=== PATIENT | female | born 1945 | race Caucasian/White ===

== ENCOUNTER → 2017-06-17 13:47 | Outpatient (CLI) | payer MEDICARE, OTHER, SELFPAY ==
--- NOTE | 2017-06-17 13:50 | HPBI_ITS ---
MAMMOGRAPHY - BILATERAL SCREENING REASON FOR EXAM: Female, 71 years old. Routine annual screening examination. PERTINENT HISTORY: Non-contributory. TECHNIQUE: Digital bilateral breast ana (3D mammographic acquisition) in the CC and MLO projections. 2-D mediolateral oblique (MLO) and craniocaudad (CC) views of both breasts were obtained. CAD: Full Field Digital Mammography with Computer Added Detection was performed. COMPARISON: Comparison is made with prior abdomen examination dated November 18, 2015. FINDINGS: Breast Composition: There are scattered areas of fibroglandular density. There are no dominant masses or suspicious calcifications. Stable mild secretory calcifications in the inferior retroareolar region of the left breast. No other significant abnormalities are identified. There has been no significant change since the prior study. HPBI/SCREENING MAMM (CAD), BILAT IMPRESSION: Stable bilateral screening mammogram. Yearly follow-up mammogram recommended. (A) ASSESSMENT CATEGORY: BIRADS Category 2: Benign. A letter regarding these results will be sent to the patient by the facility within 30 days. Approximately 10% of breast cancers are not detected by mammography. A normal mammogram should not delay biopsy of a clinically suspicious abnormality. [id number] Electronically Signed: Morgan Nice MD at 14:51 EST Tel [phone], Service support ,
== END ==
PROVIDERS: Visit Provider Nurse Practitioner Women's Health
DX: Z12.31 Encounter for screening mammogram for malignant neoplasm of breast (principal)
CPT/HCPCS: 77063; 77067

== ENCOUNTER → 2017-09-15 14:39 | Outpatient (CLI) | payer MEDICARE, OTHER, SELFPAY ==
--- NOTE | 2017-09-15 15:05 | RAD_ITS ---
STUDY: X-RAY - ABDOMEN/PELVIS REASON FOR EXAM: Female, 71 years old. Constipation. Nausea. TECHNIQUE: AP supine and upright views of the abdomen and pelvis. COMPARISON: None. FINDINGS: Normal visualized lung bases. There is a moderate amount of colonic fecal material. There is no demonstrated free abdominal air. The visualized liver, spleen and kidneys are grossly normal in size and morphology. There are calcified phleboliths in the pelvis. There are diffuse degenerative changes of the visualized lumbar spine. RAD/Abd Inc Decub and/or Erect IMPRESSION: Moderate amount of fecal material is seen in the colon. Electronically Signed: Morgan Nice MD at 15:40 EDT Tel [phone], Service support ,
[2017-09-15 16:52] LABS: Absolute Lymphocyte Count 2.19 X10^3/ul (0.83-4.51); Absolute Neutrophil Count 4.1 X10^3/uL (2.0-7.7); Basophil# 0.02 X10^3/uL; Basophil% 0.3 % (0-1); Eosinophil# 0.07 X10^3/uL; Hematocrit 43.7 % (37-47); Hemoglobin 13.8 g/dl (12.0-15.0); Lymphocyte # 2.19 X10^3/ul (4.0); Mean Corp Hgb Conc 31.6 g/gl (32-36); Mean Corpuscular Volume 101.4 fL (81-99); Mean Platelet Vol. 10.7 fl (6.2-12.0); Monocyte# 0.51 X10^3/uL; Monocyte% 7.4 % (0-10); Neutrophil # 4.05 X10^3/uL (2.7-7.7); Neutrophil % 59.2 % (47-70); Platelet Count 323 K/mm3 (150-450); RBC Distribution Width CV 12.8 % (11.6-14.6); RBC Distribution Width SD 47.8 fl (35.1-43.9); Red Blood Count 4.31 M/mm3 (4.2-5.4); White Blood Count 6.9 K/mm3 (4.4-11.0)
[2017-09-15 16:54] LABS: POSITIVE COUNT NO; POSITIVE DIFFERENTIAL NO; POSITIVE MORPHOLOGY NO
[2017-09-15 16:56] LABS: Prothrombin Time (Protime)PT. 13.3 SECONDS (11.7-14.9)
[2017-09-15 16:57] LABS: Partial Thromboplast Time 30.4 Seconds (24.1-36.2)
[2017-09-15 17:00] LABS: D-Dimer Quantitative (DVT/PE) < 0.27 FEU/ug/m (0.27-0.49)
[2017-09-15 17:08] LABS: AST(SGOT) 22 U/L (15-37); Alanine Aminotransfer ALT/SGPT 28 U/L (13-56); Alkaline Phosphatase 54 U/L (45-117); Anion Gap 10 (5-15); BUN 13 mg/dL (7-18); BUN/Creat Ratio 12.7 RATIO (10-20); Chloride 106 mmol/L (98-107); Creatinine, Serum 1.02 mg/dL (0.55-1.02); EST Glomerular Filtration Rate 57 mL/min (>60); Est Glom Filt Rate - Afr Amer 69 mL/min (>60); Globulin 3.9 g/dL (2.2-4.2); Glucose 92 mg/dL (74-106); Potassium 4.2 mmol/L (3.5-5.1); Protein, Total 7.9 g/dL (6.4-8.2); Sodium Level 142 mmol/L (136-145)
== END ==
LOC: POLAB3 14:40 → RAD 14:56
PROVIDERS: Family Provider Family Medicine Geriatric Medicine; PCP Family Medicine Geriatric Medicine; Visit Provider Family Medicine Geriatric Medicine
DX: K59.00 Constipation, unspecified (principal); D68.8 Other specified coagulation defects; R06.02 Shortness of breath; R60.9 Edema, unspecified
CPT/HCPCS: 36415; 74019; 80053; 85025; 85379; 85610; 85730

== ENCOUNTER → 2017-10-19 08:40 | Outpatient (CLI) | payer MEDICARE, OTHER, SELFPAY ==
[2017-10-19 10:47] LABS: Absolute Lymphocyte Count 1.62 X10^3/ul (0.83-4.51); Absolute Neutrophil Count 3.7 X10^3/uL (2.0-7.7); Basophil# 0.02 X10^3/uL; Basophil% 0.3 % (0-1); Eosinophil# 0.04 X10^3/uL; Eosinophils% 0.7 % (0-5); Hematocrit 44.2 % (37-47); Hemoglobin 14.3 g/dl (12.0-15.0); Lymphocyte # 1.62 X10^3/ul (4.0); Lymphocyte % 27.7 % (19-41); Mean Corp Hgb Conc 32.4 g/gl (32-36); Mean Corpuscular Hgb 32.7 pg (27.0-32.0); Mean Corpuscular Volume 101.1 fL (81-99); Mean Platelet Vol. 10.5 fl (6.2-12.0); Monocyte# 0.51 X10^3/uL; Monocyte% 8.7 % (0-10); Neutrophil # 3.66 X10^3/uL (2.7-7.7); Neutrophil % 62.6 % (47-70); Platelet Count 364 K/mm3 (150-450); RBC Distribution Width CV 12.6 % (11.6-14.6); RBC Distribution Width SD 46.7 fl (35.1-43.9); Red Blood Count 4.37 M/mm3 (4.2-5.4); White Blood Count 5.9 K/mm3 (4.4-11.0)
[2017-10-19 10:48] LABS: POSITIVE COUNT NO; POSITIVE DIFFERENTIAL NO; POSITIVE MORPHOLOGY NO
[2017-10-19 11:06] LABS: Vitamin D,25 Hydroxy 21.3 ng/mL (29.95-100.01)
[2017-10-19 11:07] LABS: ALB/GLOB Ratio 0.9 RATIO (0.9-2.4); AST(SGOT) 19 U/L (15-37); Alanine Aminotransfer ALT/SGPT 33 U/L (13-56); Albumin, Serum 3.9 g/dL (3.2-5.0); Alkaline Phosphatase 51 U/L (45-117); Anion Gap 8 (5-15); BUN 13 mg/dL (7-18); BUN/Creat Ratio 12.6 RATIO (10-20); Calcium,Total 9.6 mg/dL (8.5-10.1); Chloride 102 mmol/L (98-107); Creatinine, Serum 1.03 mg/dL (0.55-1.02); EST Glomerular Filtration Rate 56 mL/min (>60); Est Glom Filt Rate - Afr Amer 68 mL/min (>60); Globulin 4.2 g/dL (2.2-4.2); Glucose 89 mg/dL (74-106); Potassium 4.2 mmol/L (3.5-5.1); Protein, Total 8.1 g/dL (6.4-8.2); Sodium Level 138 mmol/L (136-145); Thyroid Stim Hormone (TSH) 3.03 uIU/mL (0.358-3.74)
[2017-10-20 11:05] LABS: Hep C Antibodies 0.1 s/co ratio (0.0-0.9)
== END ==
PROVIDERS: Family Provider Family Medicine Geriatric Medicine; PCP Family Medicine Geriatric Medicine; Visit Provider Family Medicine Geriatric Medicine
DX: E55.9 Vitamin D deficiency, unspecified (principal); R53.83 Other fatigue; Z13.89 Encounter for screening for other disorder
CPT/HCPCS: 36415; 80053; 82306; 84443; 85025; 86803

== ENCOUNTER → 2018-04-20 10:13 | Outpatient (CLI) | payer MEDICARE, OTHER, SELFPAY ==
[2017-06-20 10:06] VITALS: BMI 28.0
[2018-04-20 12:43] LABS: Absolute Lymphocyte Count 1.73 X10^3/ul (0.83-4.51); Absolute Neutrophil Count 5.1 X10^3/uL (2.0-7.7); Basophil# 0.02 X10^3/uL; Basophil% 0.3 % (0-1); Eosinophil# 0.08 X10^3/uL; Eosinophils% 1.1 % (0-5); Hematocrit 43.9 % (37-47); Hemoglobin 13.8 g/dl (12.0-15.0); Lymphocyte # 1.73 X10^3/ul (4.0); Lymphocyte % 22.9 % (19-41); Mean Corp Hgb Conc 31.4 g/gl (32-36); Mean Corpuscular Hgb 32.1 pg (27.0-32.0); Mean Corpuscular Volume 102.1 fL (81-99); Mean Platelet Vol. 10.5 fl (6.2-12.0); Monocyte# 0.57 X10^3/uL; Monocyte% 7.5 % (0-10); Neutrophil # 5.14 X10^3/uL (2.7-7.7); Neutrophil % 68.1 % (47-70); Platelet Count 302 K/mm3 (150-450); RBC Distribution Width CV 13.1 % (11.6-14.6); RBC Distribution Width SD 48.2 fl (35.1-43.9); White Blood Count 7.6 K/mm3 (4.4-11.0)
[2018-04-20 12:49] LABS: POSITIVE COUNT NO; POSITIVE DIFFERENTIAL NO; POSITIVE MORPHOLOGY NO
[2018-04-20 12:54] LABS: Vitamin D,25 Hydroxy 25.2 ng/mL (29.95-100.01)
[2018-04-20 13:02] LABS: AST(SGOT) 25 U/L (15-37); Alanine Aminotransfer ALT/SGPT 32 U/L (13-56); Albumin, Serum 3.7 g/dL (3.2-5.0); Alkaline Phosphatase 54 U/L (45-117); Anion Gap 9 (5-15); BUN 16 mg/dL (7-18); BUN/Creat Ratio 17.3 RATIO (10-20); Calcium,Total 8.9 mg/dL (8.5-10.1); Chloride 102 mmol/L (98-107); Creatinine, Serum 0.92 mg/dL (0.55-1.02); EST Glomerular Filtration Rate 64 mL/min (>60); Est Glom Filt Rate - Afr Amer 77 mL/min (>60); Globulin 3.8 g/dL (2.2-4.2); Glucose 93 mg/dL (74-106); Potassium 4.2 mmol/L (3.5-5.1); Protein, Total 7.5 g/dL (6.4-8.2); Sodium Level 140 mmol/L (136-145); Thyroid Stim Hormone (TSH) 2.39 uIU/mL (0.358-3.74)
== END ==
PROVIDERS: Family Provider Family Medicine Geriatric Medicine; PCP Family Medicine Geriatric Medicine; Visit Provider Family Medicine Geriatric Medicine
DX: E55.9 Vitamin D deficiency, unspecified (principal); R53.83 Other fatigue
CPT/HCPCS: 36415; 80053; 82306; 84443; 85025

== ENCOUNTER → 2018-09-19 | Outpatient (CLI) | payer MEDICARE, OTHER, SELFPAY ==
[2018-09-17 08:55] VITALS: BMI 25.0
[2018-09-22 14:06] LABS: Lyme IgG P18 Ab Absent (.); Lyme IgG P23 Ab Absent (.); Lyme IgG P28 Ab Absent (.); Lyme IgG P30 Ab Absent (.); Lyme IgG P39 Ab Absent (.); Lyme IgG P41 Ab Present (.); Lyme IgG P45 Ab Absent (.); Lyme IgG P58 Ab Absent (.); Lyme IgG P66 Ab Absent (.); Lyme IgG P93 Ab Absent (.); Lyme IgM P23 Ab Absent (.); Lyme IgM P39 Ab Absent (.); Lyme IgM P41 Ab Absent (.)
[2018-09-22 16:07] LABS: Lyme IgG WB Interpretation Negative (.); Lyme IgM WB Interpretation Negative (.)
== END | disposition home or self-care (01) ==
LOC: POLAB3 15:31
PROVIDERS: Family Provider Family Medicine Geriatric Medicine; PCP Family Medicine Geriatric Medicine; Visit Provider Family Medicine Geriatric Medicine
DX: A69.20 Lyme disease, unspecified (principal)
CPT/HCPCS: 86617

== ENCOUNTER → 2018-09-27 | Outpatient (CLI) | payer MEDICARE, OTHER, SELFPAY ==
[2018-08-15 13:25] VITALS: BMI 28.0
[2018-09-17 08:55] VITALS: BMI 25.0
--- NOTE | 2018-09-27 09:34 | BI_ITS ---
MAMMOGRAPHY - BILATERAL SCREENING REASON FOR EXAM: Female, 72 years old. Routine annual screening examination. PERTINENT HISTORY: Non-contributory. TECHNIQUE: Digital bilateral breast kathrin (3D mammographic acquisition) in the CC and MLO projections. 2-D mediolateral oblique (MLO) and craniocaudad (CC) views of both breasts were obtained. CAD: Full Field Digital Mammography with Computer Added Detection was performed. COMPARISON: Comparison is made with prior study dated June 17, 2017. FINDINGS: Breast Composition: There are scattered areas of fibroglandular density. There are no dominant masses or suspicious calcifications. Stable secretory calcifications in the left breast. No other significant abnormalities are identified. There has been no significant change since the prior study. BI/SCREEN MAMM (CAD) W/KATHRIN BILAT IMPRESSION: Stable bilateral screening mammogram. Yearly follow-up mammogram recommended. (A) ASSESSMENT CATEGORY: BIRADS Category 2: Benign. A letter regarding these results will be sent to the patient by the facility within 30 days. Approximately 10% of breast cancers are not detected by mammography. A normal mammogram should not delay biopsy of a clinically suspicious abnormality. [id number] Electronically Signed: Morgan Nice, at 12:39 EDT , Service support ,
--- NOTE | 2018-09-27 09:36 | BD_ITS ---
STUDY: DUAL ENERGY X-RAY ABSORPTIOMETRY / DXA REASON FOR EXAM: Female, 72 years old. The patient is postmenopausal. Loss of height. TECHNIQUE: Bone Mineral Density (BMD) measurements of lumbar spine and bilateral hips were obtained. COMPARISON: None. FINDINGS: Lumbar Spine (L1-L4): g/cm2 (1.318) / T-score (1.2) / Z-score (2.9) Findings are suggestive of normal bone density with a low fracture risk. Left Femur Total: g/cm2 (0.933) / T-score (-0.6) / Z-score (1.0) Left Femoral Neck: g/cm2 (0.865) / T-score (-1.2) / Z-score (0.5) Right Femur Total: g/cm2 (0.901) / T-score (-0.8) / Z-score (0.7) Right Femoral Neck: g/cm2 (0.811) / T-score (-1.6) / Z-score (0.1) BD/Dexa Bone Density Study IMPRESSION: The patient is considered osteopenic as outlined below according to World Joey Organization (WHO) criteria with a moderate fracture risk. Reference Information: The T-score is the number of standard deviations above or below the standard which is normal for young adults at their peak bone mineral density. The World Health Organization (WHO) interprets the T-scores as follows: Above -1 Normal bone density Between -1 and -2.5 Osteopenia Equal to / or below -2.5 Osteoporosis As a practical clinical guideline, osteopenia may be graded as follows: Mild -1 through -1.5 Moderate -1.6 through -2.0 Severe -2.1 through -2.4 The Z-score is the number of standard deviations above or below age-matched controls. A Z-score of less than -1.5 would be considered abnormal. References: 1. NIH Osteoporosis and Related Bone Diseases http://www.osteo.org 2. International Society for Clinical Densitometry http://www.iscd.org 3. National Osteoporosis Foundation http://www.nof.org Electronically Signed: Morgan Nice, at 8:44 EDT , Service support ,
== END | disposition home or self-care (01) ==
LOC: OPBD 09:31
PROVIDERS: Family Provider Family Medicine Geriatric Medicine; PCP Family Medicine Geriatric Medicine; Referring Provider Nurse Practitioner Women's Health; Visit Provider Nurse Practitioner Women's Health
DX: Z12.31 Encounter for screening mammogram for malignant neoplasm of breast (principal); Z78.0 Asymptomatic menopausal state
CPT/HCPCS: 77063; 77067; 77080

== ENCOUNTER → 2018-10-19 | Outpatient (CLI) | payer MEDICARE, OTHER, SELFPAY ==
[2018-09-17 08:55] VITALS: BMI 25.0
--- NOTE | 2018-10-19 09:35 | CT_ITS ---
STUDY: CT ABDOMEN AND PELVIS WITH CONTRAST REASON FOR EXAM: Female, 72 years old. MA RADIATION DOSAGE (If Supplied By Facility): CTDIvol = ( 16.27 ) mGy, DLP = ( 829.49 ) mGycm TECHNIQUE: Transaxial images were obtained from the dome of the diaphragm to the symphysis pubis without oral contrast. 100ml IV/Oral Isovue 300 was administered. Sagittal and coronal images were reconstructed. Individualized dose optimization techniques were used for this CT. COMPARISON: None. FINDINGS: The visualized lung bases are unremarkable. The visualized portions of the heart are within normal limits. Normal liver. Normal gallbladder and extrahepatic biliary system. Normal spleen. Normal pancreas. Normal bilateral adrenal glands. Normal right kidney. Normal left kidney. No hydronephrosis or stone formation Normal visualized stomach. Normal small intestine. Normal colon except for a few diverticula seen in the sigmoid colon. The appendix is visualized and appears normal. Normal abdominal aorta. Normal inferior vena cava. Normal retroperitoneum. Normal urinary bladder. The uterus is relatively small. Normal abdominal wall. Moderate hypertrophic changes in the lumbar spine with narrowing of L4-5 disc space. L5 is sacralized. CT/Abdomen/Pelvis WITH Contrast IMPRESSION: Normal enhanced CT of the abdomen and pelvis except for a few diverticula in position without diverticulitis. Electronically Signed: Brianne Stinson, at 12:24 EDT Tel , Service support ,
[2018-10-19 11:18] LABS: AST(SGOT) 18 U/L (15-37); Alanine Aminotransfer ALT/SGPT 29 U/L (13-56); Albumin, Serum 3.8 g/dL (3.2-5.0); Alkaline Phosphatase 50 U/L (45-117); Anion Gap 6 (5-15); BUN 12 mg/dL (7-18); BUN/Creat Ratio 11.8 RATIO (10-20); Calcium,Total 9.1 mg/dL (8.5-10.1); Chloride 106 mmol/L (98-107); Creatinine, Serum 1.02 mg/dL (0.55-1.02); EST Glomerular Filtration Rate 57 mL/min (>60); Est Glom Filt Rate - Afr Amer 69 mL/min (>60); Globulin 3.8 g/dL (2.2-4.2); Glucose 98 mg/dL (74-106); Potassium 3.9 mmol/L (3.5-5.1); Protein, Total 7.6 g/dL (6.4-8.2); Sodium Level 139 mmol/L (136-145)
[2018-10-19 11:21] LABS: Absolute Lymphocyte Count 1.78 X10^3/ul (0.83-4.51); Basophil# 0.03 X10^3/uL; Basophil% 0.4 % (0-1); Eosinophils% 1.3 % (0-5); Hematocrit 43.4 % (37-47); Hemoglobin 14.2 g/dl (12.0-15.0); Lymphocyte # 1.78 X10^3/ul (4.0); Lymphocyte % 23.9 % (19-41); Mean Corp Hgb Conc 32.7 g/gl (32-36); Mean Corpuscular Hgb 32.6 pg (27.0-32.0); Mean Corpuscular Volume 99.5 fL (81-99); Mean Platelet Vol. 10.1 fl (6.2-12.0); Monocyte# 0.54 X10^3/uL; Monocyte% 7.2 % (0-10); Neutrophil # 4.99 X10^3/uL (2.7-7.7); Neutrophil % 67.1 % (47-70); Platelet Count 314 K/mm3 (150-450); RBC Distribution Width CV 13.3 % (11.6-14.6); RBC Distribution Width SD 48.4 fl (35.1-43.9); Red Blood Count 4.36 M/mm3 (4.2-5.4); White Blood Count 7.5 K/mm3 (4.4-11.0)
[2018-10-19 11:22] LABS: POSITIVE COUNT NO; POSITIVE DIFFERENTIAL NO; POSITIVE MORPHOLOGY NO
== END | disposition home or self-care (01) ==
PROVIDERS: Family Provider Family Medicine Geriatric Medicine; PCP Family Medicine Geriatric Medicine; Referring Provider Family Medicine Geriatric Medicine; Visit Provider Family Medicine Geriatric Medicine
DX: R10.9 Unspecified abdominal pain (principal); R19.7 Diarrhea, unspecified
CPT/HCPCS: 36415; 74177; 80053; 85025; Q9967

== ENCOUNTER → 2018-10-23 | Outpatient (CLI) | payer MEDICARE, OTHER, SELFPAY ==
[2018-09-17 08:55] VITALS: BMI 25.0
[2018-10-23 10:25] LABS: Absolute Lymphocyte Count 1.44 X10^3/ul (0.83-4.51); Absolute Neutrophil Count 3.6 X10^3/uL (2.0-7.7); Basophil# 0.01 X10^3/uL; Basophil% 0.2 % (0-1); Eosinophil# 0.09 X10^3/uL; Eosinophils% 1.6 % (0-5); Hematocrit 42.5 % (37-47); Hemoglobin 13.9 g/dl (12.0-15.0); Lymphocyte # 1.44 X10^3/ul (4.0); Lymphocyte % 26.1 % (19-41); Mean Corp Hgb Conc 32.7 g/gl (32-36); Mean Corpuscular Volume 97.7 fL (81-99); Mean Platelet Vol. 10.1 fl (6.2-12.0); Monocyte# 0.41 X10^3/uL; Monocyte% 7.4 % (0-10); Neutrophil # 3.55 X10^3/uL (2.7-7.7); Neutrophil % 64.5 % (47-70); Platelet Count 307 K/mm3 (150-450); RBC Distribution Width CV 13.3 % (11.6-14.6); RBC Distribution Width SD 46.7 fl (35.1-43.9); Red Blood Count 4.35 M/mm3 (4.2-5.4); White Blood Count 5.5 K/mm3 (4.4-11.0)
[2018-10-23 10:26] LABS: POSITIVE COUNT NO; POSITIVE DIFFERENTIAL NO; POSITIVE MORPHOLOGY NO
[2018-10-23 10:50] LABS: Vitamin D,25 Hydroxy 28.4 ng/mL (29.95-100.01)
[2018-10-23 10:52] LABS: AST(SGOT) 16 U/L (15-37); Alanine Aminotransfer ALT/SGPT 24 U/L (13-56); Albumin, Serum 3.7 g/dL (3.2-5.0); Alkaline Phosphatase 50 U/L (45-117); Anion Gap 5 (5-15); BUN 11 mg/dL (7-18); BUN/Creat Ratio 11.1 RATIO (10-20); Calcium,Total 9.6 mg/dL (8.5-10.1); Chloride 107 mmol/L (98-107); Creatinine, Serum 0.99 mg/dL (0.55-1.02); EST Glomerular Filtration Rate 58 mL/min (>60); Est Glom Filt Rate - Afr Amer 71 mL/min (>60); Globulin 3.7 g/dL (2.2-4.2); Glucose 82 mg/dL (74-106); Potassium 3.7 mmol/L (3.5-5.1); Protein, Total 7.4 g/dL (6.4-8.2); Sodium Level 140 mmol/L (136-145); Thyroid Stim Hormone (TSH) 5.43 uIU/mL (0.358-3.74)
== END | disposition home or self-care (01) ==
LOC: POLAB3 08:53
PROVIDERS: Family Provider Family Medicine Geriatric Medicine; PCP Family Medicine Geriatric Medicine; Visit Provider Family Medicine Geriatric Medicine
DX: R10.9 Unspecified abdominal pain (principal); R53.83 Other fatigue; E55.9 Vitamin D deficiency, unspecified; R19.7 Diarrhea, unspecified
CPT/HCPCS: 36415; 80053; 82274; 82306; 83630; 84443; 85025; 87177; 87209; 87493; 87506

== ENCOUNTER → 2018-11-03 | Outpatient (CLI) | payer MEDICARE, OTHER, SELFPAY ==
[2018-09-17 08:55] VITALS: BMI 25.0
--- NOTE | 2018-11-03 11:05 | RAD_ITS ---
HISTORY: Lower abdominal pain. Diarrhea. Comparison study is a CT scan of the abdomen and pelvis from October 04, 2018. 4 images of the abdomen and pelvis. Findings: A few air-fluid levels are present, possibly within small bowel and colon. Lung bases are clear. Heart is not enlarged. Scoliosis and degenerative disc disease are mild. No pneumatosis. No free air. RAD/Abd Inc Decub and/or Erect IMPRESSION: Nonspecific bowel gas pattern. There is an gaseously distended loops of bowel with some air-fluid levels. This could be similar to the previous study. This could be indicative of an ileus, enteritis, an early small bowel obstruction, or normal. at 0440 Reported and signed by: Thom Marcum MD Electronically Signed: Thom Marcum MD at 4:39 EDT Tel , Service support ,
[2018-11-03 13:11] LABS: Absolute Lymphocyte Count 1.58 X10^3/ul (0.83-4.51); Absolute Neutrophil Count 3.2 X10^3/uL (2.0-7.7); Basophil# 0.02 X10^3/uL; Basophil% 0.4 % (0-1); Eosinophil# 0.06 X10^3/uL; Eosinophils% 1.1 % (0-5); Hematocrit 44.4 % (37-47); Hemoglobin 14.2 g/dl (12.0-15.0); Lymphocyte # 1.58 X10^3/ul (4.0); Lymphocyte % 29.4 % (19-41); Mean Corpuscular Hgb 31.6 pg (27.0-32.0); Mean Corpuscular Volume 98.9 fL (81-99); Mean Platelet Vol. 10.3 fl (6.2-12.0); Monocyte# 0.46 X10^3/uL; Monocyte% 8.6 % (0-10); Neutrophil # 3.24 X10^3/uL (2.7-7.7); Neutrophil % 60.3 % (47-70); Platelet Count 346 K/mm3 (150-450); RBC Distribution Width CV 13.3 % (11.6-14.6); RBC Distribution Width SD 47.5 fl (35.1-43.9); Red Blood Count 4.49 M/mm3 (4.2-5.4); White Blood Count 5.4 K/mm3 (4.4-11.0)
[2018-11-03 13:12] LABS: POSITIVE COUNT NO; POSITIVE DIFFERENTIAL NO; POSITIVE MORPHOLOGY NO
[2018-11-03 13:36] LABS: AST(SGOT) 21 U/L (15-37); Alanine Aminotransfer ALT/SGPT 31 U/L (13-56); Albumin, Serum 3.8 g/dL (3.2-5.0); Alkaline Phosphatase 56 U/L (45-117); Anion Gap 7 (5-15); BUN 13 mg/dL (7-18); BUN/Creat Ratio 14.1 RATIO (10-20); Chloride 107 mmol/L (98-107); Creatinine, Serum 0.92 mg/dL (0.55-1.02); EST Glomerular Filtration Rate 64 mL/min (>60); Est Glom Filt Rate - Afr Amer 77 mL/min (>60); Globulin 3.8 g/dL (2.2-4.2); Glucose 91 mg/dL (74-106); Protein, Total 7.6 g/dL (6.4-8.2); Sodium Level 142 mmol/L (136-145)
== END | disposition home or self-care (01) ==
PROVIDERS: Family Provider Family Medicine Geriatric Medicine; PCP Family Medicine Geriatric Medicine; Referring Provider Family Medicine Geriatric Medicine; Visit Provider Family Medicine Geriatric Medicine
DX: K59.00 Constipation, unspecified (principal); R53.83 Other fatigue
CPT/HCPCS: 36415; 74019; 80053; 84443; 85025

== ENCOUNTER → 2018-11-04 | Outpatient (CLI) | payer MEDICARE, OTHER, SELFPAY ==
[2018-09-17 08:55] VITALS: BMI 25.0
== END | disposition home or self-care (01) ==
LOC: LABSPEC 07:16
PROVIDERS: Family Provider Family Medicine Geriatric Medicine; PCP Family Medicine Geriatric Medicine; Referring Provider Family Medicine Geriatric Medicine; Visit Provider Family Medicine Geriatric Medicine
DX: R19.7 Diarrhea, unspecified (principal)
CPT/HCPCS: 82274; 83630; 87177; 87209; 87493; 87506

== ENCOUNTER → 2018-12-04 | Outpatient (CLI) | payer MEDICARE, OTHER, SELFPAY ==
[2018-09-17 08:55] VITALS: BMI 25.0
[2018-12-04 17:50] LABS: T3 Uptake 31 % (30-39); T4 Free Direct 0.85 ng/dL (0.76-1.46); Thyroid Stim Hormone (TSH) 3.72 uIU/mL (0.358-3.74)
== END | disposition home or self-care (01) ==
LOC: LAB.FUTURE 13:16
PROVIDERS: Family Provider Family Medicine Geriatric Medicine; PCP Family Medicine Geriatric Medicine; Visit Provider Family Medicine Geriatric Medicine
DX: E03.9 Hypothyroidism, unspecified (principal)
CPT/HCPCS: 36415; 84439; 84443; 84479

== ENCOUNTER → 2019-04-09 11:39 | Outpatient (CLI) | payer MEDICARE, OTHER, SELFPAY ==
[2018-09-17 08:55] VITALS: BMI 25.0
[2019-04-09 12:16] LABS: Absolute Lymphocyte Count 1.66 X10^3/uL (0.83-4.51); Absolute Neutrophil Count 3.3 X10^3/uL (2.0-7.7); Basophil# 0.02 X10^3/uL; Basophil% 0.4 % (0-1); Eosinophil# 0.04 X10^3/uL; Eosinophils% 0.7 % (0-5); Hematocrit 44.6 % (37-47); Hemoglobin 14.4 g/dL (12.0-15.0); Lymphocyte # 1.66 X10^3/ul (4.0); Lymphocyte % 30.7 % (19-41); Mean Corp Hgb Conc 32.3 g/dL (32-36); Mean Corpuscular Hgb 32.4 pg (27.0-32.0); Mean Corpuscular Volume 100.2 fL (81-99); Mean Platelet Vol. 10.3 fl (6.2-12.0); Monocyte# 0.36 X10^3/uL; Monocyte% 6.7 % (0-10); NRBC Flagged by Analyzer 0 % (0-5); Neutrophil # 3.31 X10^3/uL (2.7-7.7); Neutrophil % 61.1 % (47-70); Platelet Count 298 K/mm3 (150-450); RBC Distribution Width CV 12.8 % (11.6-14.6); RBC Distribution Width SD 47.7 fl (35.1-43.9); Red Blood Count 4.45 M/mm3 (4.2-5.4); White Blood Count 5.4 K/mm3 (4.4-11.0)
[2019-04-09 12:30] LABS: ALB/GLOB Ratio 1.1 RATIO (0.9-2.4); AST(SGOT) 22 U/L (15-37); Alanine Aminotransfer ALT/SGPT 32 U/L (13-56); Alkaline Phosphatase 52 U/L (45-117); Anion Gap 2 (5-15); BUN 11 mg/dL (7-18); BUN/Creat Ratio 10.5 RATIO (10-20); Calcium,Total 8.8 mg/dL (8.5-10.1); Chloride 109 mmol/L (98-107); Creatinine, Serum 1.05 mg/dL (0.55-1.02); EST Glomerular Filtration Rate 55 mL/min (>60); Est Glom Filt Rate - Afr Amer 66 mL/min (>60); Globulin 3.7 g/dL (2.2-4.2); Glucose 82 mg/dL (74-106); Potassium 4.1 mmol/L (3.5-5.1); Protein, Total 7.7 g/dL (6.4-8.2); Sodium Level 140 mmol/L (136-145); Thyroid Stim Hormone (TSH) 2.67 uIU/mL (0.358-3.74)
== END ==
PROVIDERS: Family Provider Family Medicine Geriatric Medicine; PCP Family Medicine Geriatric Medicine; Visit Provider Family Medicine Geriatric Medicine
DX: R10.9 Unspecified abdominal pain (principal); N39.0 Urinary tract infection, site not specified; I10 Essential (primary) hypertension; R19.7 Diarrhea, unspecified
CPT/HCPCS: 36415; 74177; 80053; 82274; 83630; 84443; 85025; 87086; 87088; 87177; 87209; 87493; 87506; Q9967; A4216

== ENCOUNTER → 2019-04-09 13:07 | Outpatient (CLI) | payer MEDICARE, OTHER, SELFPAY ==
[2018-09-17 08:55] VITALS: BMI 25.0
== END ==
PROVIDERS: Family Provider Family Medicine Geriatric Medicine; PCP Family Medicine Geriatric Medicine; Referring Provider Family Medicine Geriatric Medicine; Visit Provider Family Medicine Geriatric Medicine
DX: R19.7 Diarrhea, unspecified (principal)
CPT/HCPCS: 82274; 83630; 87177; 87209; 87493; 87506

== ENCOUNTER → 2019-04-09 14:01 | Outpatient (CLI) | payer MEDICARE, OTHER, SELFPAY ==
[2018-09-17 08:55] VITALS: BMI 25.0
--- NOTE | 2019-04-09 14:04 | CT_ITS ---
STUDY: CT ABDOMEN AND PELVIS WITH CONTRAST REASON FOR EXAM: Female, 73 years old. Generalized abdominal pain. Diarrhea. RADIATION DOSAGE (If Supplied By Facility): CTDIvol = ( 19.01 ) mGy, DLP = ( 816.11 ) mGycm TECHNIQUE: Transaxial images were obtained from the dome of the diaphragm to the symphysis pubis without oral contrast. 100 ML ISOVUE 370 was administered. Sagittal and coronal images were reconstructed. Individualized dose optimization techniques were used for this CT. COMPARISON: Comparison is made with prior study dated October 19, 2018. FINDINGS: Stable mild increased linear markings at the right lung base suggestive of scarring. The visualized portions of the heart are within normal limits. Normal liver. Normal gallbladder and extrahepatic biliary system. Normal spleen. Normal pancreas. Normal bilateral adrenal glands. Normal right kidney. Normal left kidney. Retroaortic left renal vein. Normal visualized stomach. Normal small intestine. There are scattered colonic diverticula consistent with diverticulosis. The appendix is visualized and appears normal. Normal abdominal aorta. Normal inferior vena cava. Normal retroperitoneum. Normal urinary bladder. Normal abdominal wall. Disc space narrowing and degeneration at the L4-L5. CT/Abdomen/Pelvis WITH Contrast IMPRESSION: No acute abnormality is seen. Electronically Signed: Morgan Nice, at 15:55 EST , Service support ,
== END ==
PROVIDERS: Family Provider Family Medicine Geriatric Medicine; PCP Family Medicine Geriatric Medicine; Referring Provider Family Medicine Geriatric Medicine; Visit Provider Family Medicine Geriatric Medicine
DX: R10.9 Unspecified abdominal pain (principal)
CPT/HCPCS: 74177; Q9967; A4216

== ENCOUNTER → 2019-05-11 08:00 | Outpatient (CLI) | payer MEDICARE, OTHER, SELFPAY ==
--- NOTE | 2019-05-04 04:54 | HP_ITS ---
Intake Vital Signs 05/04/19 Height 5 ft 5 in 05/04/19 Weight: 160 lb 8 oz 05/04/19 BMI 26.6 05/04/19 BP 153/85 H 05/04/19 Blood Pressure Location Rt brachial 05/04/19 Position Sitting 05/04/19 Respiration 20 H 05/04/19 Pulse 87 05/04/19 Pulse Oximetry (%) 98 Intake Visit Reasons: Diarrhea Chief Complaint: discuss colonoscopy Tire Technician Required: No Is patient in pain?: No Allergies celecoxib [From Celebrex] Allergy (Verified 05/04/19 14:56) Rash etodolac [From Lodine] Allergy (Verified 05/04/19 14:56) Rash valdecoxib [From Bextra] Allergy (Verified 05/04/19 14:56) Rash naproxen Adverse Reaction (Verified 05/04/19 14:56) Other Medications acetaminophen 325 mg tablet 325 mg PO ONCE PRN 06/20/17 [History Confirmed 05/04/19] calcium-vitamin D3-vitamin K 500 mg-500 unit-40 mcg chewable tablet tab PO 06/20/17 [History Confirmed 05/04/19] multivitamin,gd-clow-llqatycn 1 tab PO QDAY 06/20/17 [History Confirmed 05/04/19] Is last menstrual period known: No Post menopausal: Yes Patient : No PFSH Medical History (Updated 05/04/19 @ 16:53 by Duglas Marsh MD) Screening for intestinal cancer (Acute) Radiculopathy of lumbar region (Acute) Arthritis (Acute) Surgical History (Updated 05/04/19 @ 14:55 by Wendy Neville) History of colonoscopy (Acute) History of local excision of skin lesion (Acute) History of tonsillectomy (Acute) History of vaginal surgery (Acute) Family History (Updated 05/04/19 @ 14:56 by Wendy Neville) Father Diabetes Cancer brain CVA (cerebral vascular accident) Mother Diabetes Depression Sister Cancer uterine Social History (Updated 05/04/19 @ 16:54 by Duglas Marsh MD) Smoking Status: Never smoker alcohol intake: never substance use type: does not use caffeine: Yes what type of physical activity do you participate in: none seatbelt use: always do you feel safe at home: Yes additional social history: [employer]- Retired Patient is retired HPI HPI HPI: MORRIS OWEN, is a 73 F who presents to the office today for HPI HPI Surgical H&P: Yes HPI: MORRIS OWEN, is a 73 F who presents to the office today for surgical consultation regarding screening colonoscopy. The patient is referred by her primary care physician Dr. Diaz and a written copy of my surgical consult recommendations will be returned to him. 73-year-old female. Her previous colonoscopy was greater than 10 years ago. There is no family history of colon polyps or colon cancer. The patient 5 to 6 years ago had C. difficile colitis. Mid March she had a brief bout of diarrhea. Stool analysis at that time was unremarkable. White blood cell count was 5.4 hemoglobin 14.4 hematocrit 44.6 platelet count 298,000. Complete metabolic profile was normal. CT scan the abdomen pelvis 04/09/2019 showed no acute abnormality. Enteric pathogens were negative. Fecal white blood cells negative. C. difficile negative. Occult blood was positive. The diarrhea has resolved. She has some chronic mild tenderness in the right lower quadrant greater than left lower quadrant. That is not an acute finding. She currently denies any diarrhea or constipation no bright red blood per rectum or melena. No unexpected weight loss. She otherwise enjoys good health. She recalls that her previous colonoscopy done by Dr. Jacobo Davenport was difficult secondary to tortuosity of the bowel ROS General General: No weight change, appetite, fatigue, colon cancer, breast cancer or weakness HEENT HEENT: No difficulty swallowing, eye injury, eye surgery, swollen glands or hoarseness Endo Endocrine: No thyroid disease, diabetes mellitus, thyroid cancer, Hair loss, heat intolerance or cold intolerance Musc Musculoskeletal: Yes arthritis; no back problems, rheumatoid arthritis, gout or joint pain Cardio Cardiovascular: No murmur, pacemaker, heart disease, atrial fibrillation, high blood pressure, heart attack, heart stent, palpitations, shortness of breat with exertion or chest pain Resp Respiratory: No shortness of breath, No sleep apnea, No cough, No COPD, No asthma, No emphysema, No wheezing Gastro Gastrointestinal: No abdominal pain, No nausea or vomiting, Yes diarrhea, No constipation, No blood in stool, No acid reflux, No hemorrhoids, No ulcers, No gallbladder problem, No black,tarry stools Vish Hematologic: No blood thinners, No blood disorders, No bleeding, No anemia, No blood clots Neuro Neurologic: No weakness Exam Const General: cooperative, healthy appearing, comfortable, no acute distress Nutritional Appearance: average body habitus Orientation: alert, awake HENMT Head: normal to inspection Resp Effort & Inspection: normal respiratory effort Auscultation: clear to auscultation bilaterally Cardio Rate: regular rate Rhythm: regular rhythm Heart Sounds: no murmurs GI Palpation: soft, no hepatosplenomegaly Auscultation: normal bowel sounds Neuro Cognition: normal cognition Extrem General: no calf tenderness bilaterally Psych Affect: normal affect Assessment & Plan Problems 1. Screening for intestinal cancer Z12.10 Plan 73-year-old female. Currently she is asymptomatic. Recommend a screening colonoscopy with possible biopsy or polypectomy as indicated. She has had an opportunity to ask and have questions answered. She has by report tortuous bowel. We will perform this under monitored anesthesia care. We will schedule and proceed at her discretion. I appreciate the opportunity of assisting with her surgical care. Cc: Dr. Joe Marsh M.D., F.A.C.S. Coding Level of Care Code 31116 Diagnoses Screening for intestinal cancer Z12.05/04/19 1654 <Electronically signed by Duglas ramírez MD> Date _ Duglas Marsh MD I have re-examined the patient. There are no clinical changes since date of exam.
[2019-05-04 15:00] VITALS: BMI 25.0
[2019-05-11 08:14] VITALS: BP 135/69; PULSE 79; RESP 16; TEMP 36.6; O2SAT 99; BMI 25.2
[2019-05-11] MEDS: Lactated Ringers 1,000 ML 100 ML IV (08:27)
--- NOTE | 2019-05-11 09:00 | COLBX_PTH ---
PATIENT: MORRIS OWEN [place] [facility] [place][id number] AGE/SX: 79/F ROOM: RE05/11/[address]: Dr. Duglas Marsh MD : 1945 BED: DIS: SPEC #: [id number] RECD: 05/11/19 11:28 STATUS: MARICHUY GAIL #: [id number] LAMONT: 05/11/19 09:[address]: Duglas Marsh DEPT: SURGICAL PATHOLOGY RECD BY: Jorje Fischer ENTERED: 05/11/19 11:51 SP TYPE: COLON BX OTHR DR: Dr. Ashish Diaz MD Tissues: COLON BIOPSY Procedures: Surgery Specimen Level IV HEADER OPERATION: Colonoscopy (MAC) PRE-OP DIAGNOSIS: Diarrhea TISSUE SUBMITTED: Random colon biopsies MICROSCOPIC DIAGNOSIS Colon, random biopsy: Fragments of colonic mucosa, no pathologic diagnosis. SJ:briana 05/14/19 MICROSCOPIC DESCRIPTION Slides are reviewed. GROSS DESCRIPTION Received in fixative is one container labeled with the patient's name and designated random colon biopsy. The specimen consists of multiple irregular fragments of light lucio soft tissue that in aggregate measure 2 x 0.5 x 0.1 cm. The specimen is totally submitted in one cassette. / SJ:briana 05/11/19 TC:4 CPT: 90915
[2019-05-11 09:25] VITALS: BP 135/69; BP 97/66; PULSE 71; RESP 18; TEMP 36.4; O2SAT 98
[2019-05-11 09:30] VITALS: BP 109/67; BP 135/69; PULSE 68; RESP 18; O2SAT 99
[2019-05-11 09:35] VITALS: BP 112/77; BP 135/69; PULSE 65; RESP 18; O2SAT 98
[2019-05-11 09:40] VITALS: BP 121/82; BP 135/69; PULSE 73; RESP 18; TEMP 36.6; O2SAT 96
[2019-05-11 10:26] VITALS: BP 135/69
--- NOTE | 2019-05-14 14:18 | OP.CCLET_ITS ---
05/14/2019 Ashish Diaz MD [address] [place] [address] Re : Colonoscopy procedure for Kesha Twan Dear Dr. Diaz This procedure was performed on Saturday, May 11, 2019. My impressions and recommendations are as follows: Impressions : - Hemorrhoids found on perianal exam. - Diverticulosis in the entire examined colon. Biopsied. - Tortuous colon. Recommendations : - Discharge patient to home. - Resume previous diet. - Continue present medications. - Repeat colonoscopy in 10 years for screening purposes. - Telephone my office for pathology results in 1 week. My findings are described in the full procedure note, which is enclosed. If I can be of further assistance, please feel free to contact me at Doctor phone number(s): Work: . Sincerely, Duglas Marsh MD 05/11/2019 9:25:53 AM This report has been signed electronically.
--- NOTE | 2019-05-14 14:18 | OP.COLON_ITS ---
Patient Name: Kesha Trent Procedure Date: 05/11/2019 8:56 AM Date of : 1945 Age: 73 Procedure: Colonoscopy Indications: Screening for colorectal malignant neoplasm Providers: Duglas Marsh MD Referring MD: Ashish Diaz MD Medicines: See the Anesthesia note for documentation of the administered medications Patient Profile: Last Colonoscopy: more than 10 years ago. Complications: No immediate complications. Procedure: Pre-Anesthesia Assessment: - Prior to the procedure, a History and Physical was performed, and patient medications and allergies were reviewed. The patient's tolerance of previous anesthesia was also reviewed. The risks and benefits of the procedure and the sedation options and risks were discussed with the patient. All questions were answered, and informed consent was obtained. Prior Anticoagulants: The patient has taken no previous anticoagulant or antiplatelet agents. ASA Grade Assessment: II - A patient with mild systemic disease. After reviewing the risks and benefits, the patient was deemed in satisfactory condition to undergo the procedure. After I obtained informed consent, the scope was passed under direct vision. Throughout the procedure, the patient's blood pressure, pulse, and oxygen saturations were monitored continuously. The colonoscope was introduced through the anus and advanced to the cecum, identified by appendiceal orifice and ileocecal valve. The colonoscopy was somewhat difficult due to a tortuous colon. Successful completion of the procedure was aided by using manual pressure. The patient tolerated the procedure well. The quality of the bowel preparation was good. The ileocecal valve and the appendiceal orifice were photographed. Scope In: 9:03:18 AM Scope Withdrawal Time 0 hours 8 minutes 21 seconds Scope Out: 9:20:17 AM Total Procedure Duration Time 0 hours 16 minutes 59 seconds Findings: Hemorrhoids were found on perianal exam. Scattered diverticula were found in the entire colon. Biopsies for histology were taken with a cold forceps from the entire colon for evaluation of microscopic colitis. The colon (entire examined portion) was moderately tortuous. Impression: - Hemorrhoids found on perianal exam. - Diverticulosis in the entire examined colon. Biopsied. - Tortuous colon. Recommendation: - Discharge patient to home. - Resume previous diet. - Continue present medications. - Repeat colonoscopy in 10 years for screening purposes. - Telephone my office for pathology results in 1 week. Procedure Code(s): --- Professional --- 63009, Colonoscopy, flexible; with biopsy, single or multiple Diagnosis Code(s): --- Professional --- Z12.11, Encounter for screening for malignant neoplasm of colon K64.9, Unspecified hemorrhoids K57.30, Diverticulosis of large intestine without perforation or abscess without bleeding Q43.8, Other specified congenital malformations of intestine CPT copyright 2017 [employer]. All rights reserved. The codes documented in this report are preliminary and upon certified procedural coder review may be revised to meet current compliance requirements. Duglas Marsh MD 05/11/2019 9:25:53 AM This report has been signed electronically. Number of Addenda: 0 Note Initiated On: 05/11/2019 8:56 AM
== END ==
LOC: EN 07:50 → AC 07:51 → LABSPEC 07-01 19:09 → SDC 07-01 19:12 → LABSPEC 07-01 19:14 → SDC 07-01 19:14
PROVIDERS: Family Provider Family Medicine Geriatric Medicine; PCP Family Medicine Geriatric Medicine; Referring Provider Family Medicine Geriatric Medicine; Visit Provider Surgery
PROC: 0DJD8ZZ Inspection of Lower Intestinal Tract, Via Natural or Artificial Opening Endoscopic (ICD-10-PCS; CPT 45378; principal; 2019-05-11 08:55)
DX: Z12.11 Encounter for screening for malignant neoplasm of colon (principal); K57.30 Diverticulosis of large intestine without perforation or abscess without bleeding; K64.9 Unspecified hemorrhoids; Q43.8 Other specified congenital malformations of intestine; R19.7 Diarrhea, unspecified; E78.00 Pure hypercholesterolemia, unspecified; M19.90 Unspecified osteoarthritis, unspecified site; Z78.0 Asymptomatic menopausal state; Z79.899 Other long term (current) drug therapy; Z88.6 Allergy status to analgesic agent; Z86.19 Personal history of other infectious and parasitic diseases
CPT/HCPCS: 45380; 88305; J7120

== ENCOUNTER → 2019-06-29 11:34 | Outpatient (CLI) | payer MEDICARE, OTHER, SELFPAY ==
[2019-05-11 08:14] VITALS: BMI 25.2
[2019-06-29 12:40] LABS: Absolute Lymphocyte Count 1.83 X10^3/uL (0.83-4.51); Absolute Neutrophil Count 4.7 X10^3/uL (2.0-7.7); Basophil# 0.02 X10^3/uL; Basophil% 0.3 % (0-1); Eosinophil# 0.06 X10^3/uL; Eosinophils% 0.8 % (0-5); Hematocrit 44.9 % (37-47); Hemoglobin 14.4 g/dL (12.0-15.0); Lymphocyte # 1.83 X10^3/ul (4.0); Lymphocyte % 25.7 % (19-41); Mean Corp Hgb Conc 32.1 g/dL (32-36); Mean Corpuscular Hgb 32.5 pg (27.0-32.0); Mean Corpuscular Volume 101.4 fL (81-99); Mean Platelet Vol. 10.4 fl (6.2-12.0); Monocyte# 0.44 X10^3/uL; Monocyte% 6.2 % (0-10); NRBC Flagged by Analyzer 0 % (0-5); Neutrophil # 4.73 X10^3/uL (2.7-7.7); Neutrophil % 66.6 % (47-70); Platelet Count 314 K/mm3 (150-450); RBC Distribution Width SD 48.4 fl (35.1-43.9); Red Blood Count 4.43 M/mm3 (4.2-5.4); White Blood Count 7.1 K/mm3 (4.4-11.0)
[2019-06-29 12:53] LABS: AST(SGOT) 20 U/L (15-37); Alanine Aminotransfer ALT/SGPT 26 U/L (13-56); Albumin, Serum 3.9 g/dL (3.2-5.0); Alkaline Phosphatase 53 U/L (45-117); Anion Gap 4 (5-15); BUN 15 mg/dL (7-18); BUN/Creat Ratio 14.9 RATIO (10-20); Calcium,Total 9.7 mg/dL (8.5-10.1); Chloride 107 mmol/L (98-107); Creatinine, Serum 1.01 mg/dL (0.55-1.02); EST Glomerular Filtration Rate 57 mL/min (>60); Est Glom Filt Rate - Afr Amer 69 mL/min (>60); Glucose 87 mg/dL (74-106); Potassium 4.4 mmol/L (3.5-5.1); Protein, Total 7.9 g/dL (6.4-8.2); Sodium Level 138 mmol/L (136-145)
== END ==
PROVIDERS: PCP Family Medicine Geriatric Medicine; Visit Provider Family Medicine Geriatric Medicine
DX: R10.9 Unspecified abdominal pain (principal); S09.90XA Unspecified injury of head, initial encounter; X58.XXXA Exposure to other specified factors, initial encounter; Y93.9 Activity, unspecified; Y92.9 Unspecified place or not applicable; Y99.9 Unspecified external cause status
CPT/HCPCS: 36415; 70450; 80053; 85025

== ENCOUNTER → 2019-06-29 11:53 | Outpatient (CLI) | payer MEDICARE, OTHER, SELFPAY ==
[2019-05-11 08:14] VITALS: BMI 25.2
--- NOTE | 2019-06-29 11:58 | CT_ITS ---
STUDY: CT BRAIN WITHOUT CONTRAST REASON FOR EXAM: Female, 73 years old. CLOSED HEAD INJURY, PT FELL FORWARD ONE WEEK AGO AND SLOWLY HIT FOREHEAD ON GROUND, NO LOC, SMALL ABRASIONS TO FOREHEAD, C/O NECK PAIN RADIATION DOSAGE (If Supplied By Facility): CTDIvol = ( 44.99 ) mGy, DLP = ( 762.36 ) mGycm TECHNIQUE: Transaxial CT imaging of the brain was performed without administration of intravenous contrast material. Individualized dose optimization techniques were used for this CT. COMPARISON: No relevant priors. FINDINGS: Normal soft tissue structures. Normal calvarium. There is mild cerebral atrophy with widening of the extra-axial spaces and ventricular dilatation. There are areas of decreased attenuation within the white matter tracts of the supratentorial brain, consistent with microvascular disease changes. Normal basal ganglia and thalami. Normal brainstem. Normal cerebellum. There is no intracranial hemorrhage. There are no findings of an acute ischemic infarction. Normal visualized paranasal sinuses. CT/Brain/Head without Contrast IMPRESSION: Chronic involutional changes of the brain. Electronically Signed: Sam Dunne MD at 14:55 EST Tel , Service support ,
== END ==
PROVIDERS: PCP Family Medicine Geriatric Medicine; Referring Provider Family Medicine Geriatric Medicine; Visit Provider Family Medicine Geriatric Medicine
DX: S09.90XA Unspecified injury of head, initial encounter (principal); X58.XXXA Exposure to other specified factors, initial encounter; Y93.9 Activity, unspecified; Y92.9 Unspecified place or not applicable; Y99.9 Unspecified external cause status
CPT/HCPCS: 70450

== ENCOUNTER → 2019-07-01 19:15 | Outpatient (CLI) | payer MEDICARE, OTHER, SELFPAY ==
[2019-05-11 08:14] VITALS: BMI 25.2
== END ==
PROVIDERS: PCP Family Medicine Geriatric Medicine; Visit Provider Family Medicine Geriatric Medicine
DX: R19.7 Diarrhea, unspecified (principal)
CPT/HCPCS: 82274; 83630; 87177; 87209; 87493; 87506

== ENCOUNTER → 2019-10-01 | Outpatient (CLI) | payer MEDICARE, OTHER, SELFPAY ==
[2019-09-19 08:24] VITALS: BMI 25.2
--- NOTE | 2019-10-01 11:54 | BI_ITS ---
MAMMOGRAPHY - BILATERAL SCREENING REASON FOR EXAM: Female, 73 years old. Routine annual screening examination. PERTINENT HISTORY: Non-contributory. TECHNIQUE: Digital bilateral breast kathrin (3D mammographic acquisition) in the CC and MLO projections. 2-D mediolateral oblique (MLO) and craniocaudad (CC) views of both breasts were obtained. CAD: Full Field Digital Mammography with Computer Added Detection was performed. COMPARISON: Comparison is made with prior examination dated September 27, 2018 and January 15, 2018. FINDINGS: Breast Composition: There are scattered areas of fibroglandular density. There are no dominant masses or suspicious calcifications. Stable secretory calcification in the left breast. Stable small benign-appearing left axillary lymph nodes. No other significant abnormalities are identified. There has been no significant change since the prior study. BI/SCREEN MAMM (CAD) W/KATHRIN BILAT IMPRESSION: Stable bilateral screening mammogram. Yearly follow-up mammogram recommended. (A) ASSESSMENT CATEGORY: BIRADS Category 2: Benign. A letter regarding these results will be sent to the patient by the facility within 30 days. Approximately 10% of breast cancers are not detected by mammography. A normal mammogram should not delay biopsy of a clinically suspicious abnormality. [id number] Electronically Signed: Morgan Nice, at 12:54 EDT , Service support ,
== END | disposition home or self-care (01) ==
LOC: OPBI 11:54
PROVIDERS: PCP Family Medicine Geriatric Medicine; Referring Provider Nurse Practitioner Women's Health; Visit Provider Nurse Practitioner Women's Health
DX: Z12.31 Encounter for screening mammogram for malignant neoplasm of breast (principal)
CPT/HCPCS: 77063; 77067

== ENCOUNTER → 2019-10-25 11:26 | Outpatient (CLI) | payer MEDICARE, OTHER, SELFPAY ==
[2019-09-19 08:24] VITALS: BMI 25.2
[2019-10-25 12:29] LABS: Absolute Neutrophil Count 3.8 X10^3/uL (2.0-7.7); Basophil# 0.03 X10^3/uL; Basophil% 0.5 % (0-1); Eosinophil# 0.11 X10^3/uL; Eosinophils% 1.8 % (0-5); Hematocrit 42.2 % (37-47); Hemoglobin 13.2 g/dL (12.0-15.0); Lymphocyte % 27.8 % (19-41); Mean Corp Hgb Conc 31.3 g/dL (32-36); Mean Corpuscular Hgb 32.8 pg (27.0-32.0); Mean Platelet Vol. 10.3 fl (6.2-12.0); Monocyte% 8.2 % (0-10); NRBC Flagged by Analyzer 0 % (0-5); Neutrophil # 3.76 X10^3/uL (2.7-7.7); Neutrophil % 61.5 % (47-70); Platelet Count 338 K/mm3 (150-450); RBC Distribution Width CV 13.2 % (11.6-14.6); Red Blood Count 4.02 M/mm3 (4.2-5.4); White Blood Count 6.1 K/mm3 (4.4-11.0)
[2019-10-25 13:08] LABS: AST(SGOT) 16 U/L (15-37); Alanine Aminotransfer ALT/SGPT 27 U/L (13-56); Albumin, Serum 3.8 g/dL (3.2-5.0); Alkaline Phosphatase 47 U/L (45-117); Anion Gap 8 (5-15); BUN 13 mg/dL (7-18); BUN/Creat Ratio 13.8 RATIO (10-20); Calcium,Total 9.2 mg/dL (8.5-10.1); Chloride 105 mmol/L (98-107); Creatinine, Serum 0.94 mg/dL (0.55-1.02); EST Glomerular Filtration Rate 62 mL/min (>60); Est Glom Filt Rate - Afr Amer 75 mL/min (>60); Globulin 3.8 g/dL (2.2-4.2); Glucose 84 mg/dL (74-106); Potassium 4.4 mmol/L (3.5-5.1); Protein, Total 7.6 g/dL (6.4-8.2); Sodium Level 140 mmol/L (136-145)
[2019-10-25 13:45] LABS: Vitamin D,25 Hydroxy 50.5 ng/mL
== END ==
PROVIDERS: PCP Family Medicine Geriatric Medicine; Visit Provider Family Medicine Geriatric Medicine
DX: E55.9 Vitamin D deficiency, unspecified (principal); R53.83 Other fatigue
CPT/HCPCS: 36415; 80053; 82306; 84443; 85025

== ENCOUNTER → 2019-11-30 12:23 | Outpatient (CLI) | payer MEDICARE, OTHER, SELFPAY ==
[2019-09-19 08:24] VITALS: BMI 25.2
--- NOTE | 2019-11-30 12:35 | RAD_ITS ---
STUDY: X-RAY - PELVIS AND BILATERAL HIPS REASON FOR EXAM: Female, 74 years old. BILATERAL HIP PAIN FOR 2-3 DAYS. HX OF MULTIPLE HIP INJECTIONS TECHNIQUE: AP view of the pelvis.? 2 views of the right hip, and 2 views of the left hip were obtained. COMPARISON: None. FINDINGS: There is a non-specific bowel gas pattern. Normal visualized soft tissue structures. There is mild degenerative osteoarthritic changes. Normal bilateral superior and inferior pubic rami. Normal pubic symphysis. Normal bilateral ischial tuberosities. Normal visualized right femoral head. Normal right acetabulum. There is mild articular joint space narrowing of the right hip. Normal visualized left femoral head. Normal left acetabulum. There is mild articular joint space narrowing of the left hip. RAD/Hips B/L min 2 views w/ Pelvis IMPRESSION: Mild, age consistent degenerative changes, no acute findings Electronically Signed: Marciano Little MD at 17:01 EDT , Service support ,
== END ==
PROVIDERS: PCP Family Medicine Geriatric Medicine; Referring Provider Family Medicine Geriatric Medicine; Visit Provider Family Medicine Geriatric Medicine
DX: M25.552 Pain in left hip (principal); M25.551 Pain in right hip
CPT/HCPCS: 73521

== ENCOUNTER → 2020-04-23 09:20 | Outpatient (CLI) | payer MEDICARE, OTHER, SELFPAY ==
[2019-09-19 08:24] VITALS: BMI 25.2
[2020-04-23 12:06] LABS: Absolute Lymphocyte Count 1.92 X10^3/uL (0.83-4.51); Absolute Neutrophil Count 4.3 X10^3/uL (2.0-7.7); Basophil# 0.04 X10^3/uL; Basophil% 0.6 % (0-1); Eosinophils% 1.5 % (0-5); Hematocrit 45.1 % (37-47); Hemoglobin 14.1 g/dL (12.0-15.0); Lymphocyte # 1.92 X10^3/ul (4.0); Mean Corp Hgb Conc 31.3 g/dL (32-36); Mean Corpuscular Volume 102.3 fL (81-99); Mean Platelet Vol. 9.8 fl (6.2-12.0); Monocyte# 0.51 X10^3/uL; Monocyte% 7.4 % (0-10); NRBC Flagged by Analyzer 0 % (0-5); Neutrophil # 4.28 X10^3/uL (2.7-7.7); Neutrophil % 62.4 % (47-70); Platelet Count 359 K/mm3 (150-450); RBC Distribution Width CV 12.6 % (11.6-14.6); RBC Distribution Width SD 47.6 fl (35.1-43.9); Red Blood Count 4.41 M/mm3 (4.2-5.4); White Blood Count 6.9 K/mm3 (4.4-11.0)
[2020-04-23 12:25] LABS: ALB/GLOB Ratio 1.1 RATIO (0.9-2.4); AST(SGOT) 21 U/L (15-37); Alanine Aminotransfer ALT/SGPT 27 U/L (13-56); Albumin, Serum 3.9 g/dL (3.2-5.0); Alkaline Phosphatase 42 U/L (45-117); Anion Gap 5 (5-15); BUN 12 mg/dL (7-18); BUN/Creat Ratio 12.2 RATIO (10-20); Calcium,Total 9.4 mg/dL (8.5-10.1); Chloride 105 mmol/L (98-107); Creatinine, Serum 0.98 mg/dL (0.55-1.02); EST Glomerular Filtration Rate 59 mL/min (>60); Est Glom Filt Rate - Afr Amer 71 mL/min (>60); Globulin 3.6 g/dL (2.2-4.2); Glucose 75 mg/dL (74-106); Potassium 3.8 mmol/L (3.5-5.1); Protein, Total 7.5 g/dL (6.4-8.2); Sodium Level 140 mmol/L (136-145); Thyroid Stim Hormone (TSH) 2.59 uIU/mL (0.358-3.74)
== END ==
PROVIDERS: PCP Family Medicine Geriatric Medicine; Visit Provider Family Medicine Geriatric Medicine
DX: E55.9 Vitamin D deficiency, unspecified (principal); R53.83 Other fatigue
CPT/HCPCS: 36415; 80053; 82306; 84443; 85025

== ENCOUNTER → 2020-08-28 14:49 | Outpatient (CLI) | payer MEDICARE, OTHER, SELFPAY ==
[2019-09-19 08:24] VITALS: BMI 25.2
--- NOTE | 2020-08-28 14:52 | CT_ITS ---
STUDY: CT BRAIN WITHOUT CONTRAST REASON FOR EXAM: Female, 74 years old. HEADACHE RADIATION DOSAGE (If Supplied By Facility): CTDIvol = ( 38.43 ) mGy, DLP = ( 698.28 ) mGycm TECHNIQUE: Transaxial CT imaging of the brain was performed without administration of intravenous contrast material. Individualized dose optimization techniques were used for this CT. COMPARISON: Comparison is made with prior study 06/29/2019. FINDINGS: Normal soft tissue structures. Normal calvarium. There is mild cerebral atrophy with widening of the extra-axial spaces and ventricular dilatation. There are areas of decreased attenuation within the white matter tracts of the supratentorial brain, consistent with microvascular disease changes. Normal basal ganglia and thalami. Normal brainstem. Normal cerebellum. There is no intracranial hemorrhage. There are no findings of an acute ischemic infarction. Normal visualized paranasal sinuses. CT/Brain/Head without Contrast IMPRESSION: Chronic involutional changes of the brain. Electronically Signed: Morgan Nice MD at 15:46 EDT , Service support ,
== END ==
PROVIDERS: PCP Family Medicine Geriatric Medicine; Referring Provider Family Medicine Geriatric Medicine; Visit Provider Family Medicine Geriatric Medicine
DX: R51.9 Headache, unspecified (principal)
CPT/HCPCS: 70450

== ENCOUNTER → 2020-09-05 12:44 | Outpatient (CLI) | payer MEDICARE, OTHER, SELFPAY ==
[2019-09-19 08:24] VITALS: BMI 25.2
== END ==
PROVIDERS: PCP Family Medicine Geriatric Medicine; Visit Provider Family Medicine Geriatric Medicine
DX: N39.0 Urinary tract infection, site not specified (principal); R41.0 Disorientation, unspecified
CPT/HCPCS: 87086; 87088

== ENCOUNTER → 2020-10-17 12:54 | Outpatient (CLI) | payer MEDICARE, OTHER, SELFPAY ==
[2020-09-24 13:35] VITALS: BMI 26.8
[2020-10-15 15:56] VITALS: BMI 26.4
--- NOTE | 2020-10-17 12:56 | BI_ITS ---
MAMMOGRAPHY - BILATERAL SCREENING 3-D TOMOSYNTHESIS REASON FOR EXAM: Female, 74 years old. screening for breast cancer PERTINENT HISTORY: No significant family history. TECHNIQUE: 2-D mammograms and 3-D Tomosynthesis of the breast (s) were performed. CAD was performed. COMPARISON: 10/01/2019 FINDINGS: The breast composition is Scattered benign ductal calcifications are seen mainly on the left. No dense spiculated masses or suspicious microcalcifications are identified. No architectural distortion is identified. There is no skin thickening or nipple retraction. Benign looking lymph nodes noted in the axillary areas There has been no significant change since the prior study of 10/01/2019. BI/SCRN MAMM (CAD)W/KATHRIN BILAT IMPRESSION: No mammographic signs of malignancy. Routine yearly mammograms recommended. ASSESSMENT CATEGORY: BIRADS Category 1: Negative. A letter regarding these results will be sent to the patient by the facility within 30 days. FOLLOW UP RECOMMENDATION: Yearly follow up mammogram recommended. (A) Approximately 10% of breast cancers are not detected by mammography. A normal mammogram should not delay biopsy of a clinically suspicious abnormality. Electronically Signed: Brianne Stinson, at 14:32 EDT Tel , Service support ,
== END ==
PROVIDERS: PCP Family Medicine Geriatric Medicine; Referring Provider Nurse Practitioner Women's Health; Visit Provider Nurse Practitioner Women's Health
DX: Z12.31 Encounter for screening mammogram for malignant neoplasm of breast (principal)
CPT/HCPCS: 77063; 77067

== ENCOUNTER → 2020-11-05 12:46 | Outpatient (CLI) | payer MEDICARE, OTHER, SELFPAY ==
[2020-10-15 15:56] VITALS: BMI 26.4
--- NOTE | 2020-11-05 12:50 | ECHOD_ITS ---
Reason For Study: TIA Procedure This was a 2D Doppler, Color Flow transthoracic echocardiogram. The exam was of adequate technical quality. Exam performed in department. Left Ventricle Normal LV size. Left ventricular systolic function is normal. The estimated ejection fraction is 65 %. No evidence for diastolic dysfunction. No regional wall motion abnormalities noted. Right Ventricle Normal RV size. Normal systolic function. Atria Normal left atrium. Normal right atrium. No doppler evidence for ASD. Bubble contrast study negative for right to left interatrial shunt. Mitral Valve There is mild mitral annular calcification. Normal mitral valve. Mild (1+) eccentric mitral valve insufficiency. Tricuspid Valve Normal tricuspid valve. Trivial tricuspid valve insufficiency. Right ventricular systolic pressure estimated to be 21 mmHg. Aortic Valve Trisinus/trileaflet aortic valve. Mild focal aortic valve calcification. Pulmonic Valve The pulmonic valve is not well visualized. Great Vessels Normal sized aortic root. Pericardium/Pleural No pericardial effusion. Medication 22 gauge I.V. with prn adaptor inserted into right arm. Performed a rapid injection of agitated mix of 9 cc saline and 1cc air to assess for atrial septal defect. MMode/2D Measurements & Calculations LVIDd: 4.0 cm IVSd: 1.0 cm Ao root diam: 3.0 cm LVIDs: 2.5 cm LVPWd: 0.78 cm RVDd: 3.0 cm FS: 37.2 % LAV(MOD-bp): 28.4 ml LA A4 area: 12.3 cm2 LA dimension(2D): 3.3 cm LAV(MOD-bp) Indexed: 15.8 ml/m2 LAV(MOD-sp2): 29.7 ml LAV(MOD-sp4): 26.2 ml RA A4 area: 9.1 cm2 Time Measurements MV dec time: 0.28 sec Doppler Measurements & Calculations MV E max mikel: 65.4 cm/sec Lat Peak E' Mikel: 7.6 cm/sec Med Peak E' Mikel: 5.7 cm/sec MV A max mikel: 86.0 cm/sec E/E' lat: 8.6 E/E' med: 11.4 MV E/A: 0.76 Ao V2 max: 143.9 cm/sec LV V1 max: 99.4 cm/sec PA V2 max: 101.8 cm/sec Ao max P.3 mmHg LV V1 max P.0 mmHg TR max mikel: 210.4 cm/sec TR max P.7 mmHg ECHO/Echo Complete Interpretation Summary Left ventricular systolic function is normal. The estimated ejection fraction is 65 %. There is mild mitral annular calcification. Mild (1+) eccentric mitral valve insufficiency. Trivial tricuspid valve insufficiency. Mild focal aortic valve calcification. Right ventricular systolic pressure estimated to be 21 mmHg. No evidence for diastolic dysfunction. Bubble contrast study negative for right to left interatrial shunt. Ordering Physician: Chito Odom Referring Physician: Ashish Diaz Chi Performed By: Alisha Desai, KALE, RVT
--- NOTE | 2020-11-05 12:50 | CDU_ITS ---
Reason For Study: TIA Rt. Velocities/BP Lt. Velocities/BP Prox CCA 96.9/20.0 cm/sec. Prox CCA 120.4/27.8 cm/sec. Mid CCA 103.4/23.9 cm/sec. Mid CCA 98.2/29.1 cm/sec. Dist CCA 96.9/23.9 cm/sec. Dist CCA 85.2/23.9 cm/sec. Prox ICA 72.1/22.6 cm/sec. Prox ICA 70.8/18.6 cm/sec. Mid ICA 68.2/25.2 cm/sec. Mid ICA 64.3/22.6 cm/sec. Dist ICA 83.8/30.4 cm/sec. Dist ICA 99.5/36.9 cm/sec. Rt. ICA/CCA = .8. Lt. ICA/CCA = 1.0. Prox ECA 83.9/14.7 cm/sec. Prox ECA 85.2/22.6 cm/sec. Rt. Vert. 57.8/12.1 cm/sec. Lt. Vert. 50.9/17.9 cm/sec. Right Extracranial There is intimal thickening but no significant atherosclerotic plaque noted in the right common carotid artery. There is heterogeneous, irregular atherosclerotic plaque noted in the right internal carotid artery. There is intimal thickening but no significant atherosclerotic plaque noted in the right external carotid artery. Antegrade flow is noted in the right vertebral artery. Left Extracranial There is intimal thickening but no significant atherosclerotic plaque noted in the left common carotid artery. There is intimal thickening but no significant atherosclerotic plaque noted in the left internal carotid artery. There is intimal thickening but no significant atherosclerotic plaque noted in the left external carotid artery. Antegrade flow is noted in the left vertebral artery. Procedure Carotid Duplex 19704. This is a Carotid Duplex examination using B-mode, color flow and specral Doppler. The exam was diagnostic. Exam performed in department. VL/Carotid Duplex Ultrasound Interpretation Summary Mild (<50%) stenosis right extracranial internal carotid. Mild (<50%) stenosis left extracranial internal carotid. Flow within the vertebral arteries is antegrade bilaterally. Ordering Physician: Chito Odom Performed By: Cristhian Solo RVT
--- NOTE | 2020-11-05 13:52 | CT_ITS ---
STUDY: CT BRAIN WITHOUT CONTRAST REASON FOR EXAM: Female, 75 years old. TIA / DIZZINESS RADIATION DOSAGE (If Supplied By Facility): CTDIvol = ( 44.99 ) mGy, DLP = ( 745.49 ) mGycm TECHNIQUE: Transaxial CT imaging of the brain was performed without administration of intravenous contrast material. Individualized dose optimization techniques were used for this CT. COMPARISON: Comparison is made with prior examination dated 08/28/2020. FINDINGS: Normal soft tissue structures. Normal calvarium. There is mild cerebral atrophy with widening of the extra-axial spaces and ventricular dilatation. There are areas of decreased attenuation within the white matter tracts of the supratentorial brain, consistent with microvascular disease changes. Normal basal ganglia and thalami. Normal brainstem. Normal cerebellum. There is no intracranial hemorrhage. There are no findings of an acute ischemic infarction. Normal visualized paranasal sinuses. CT/Brain/Head without Contrast IMPRESSION: Chronic involutional changes of the brain. Electronically Signed: Morgan Nice MD at 14:47 EDT , Service support ,
== END ==
PROVIDERS: PCP Family Medicine Geriatric Medicine; Referring Provider Internal Medicine Cardiovascular Disease; Visit Provider Internal Medicine Cardiovascular Disease
DX: R42 Dizziness and giddiness (principal); Z86.73 Personal history of transient ischemic attack (TIA), and cerebral infarction without residual deficits
CPT/HCPCS: 70450; 93306; 93880; A4216

== ENCOUNTER 2020-11-19 07:16 | Emergency (ER) | payer MEDICARE, OTHER, SELFPAY ==
[2020-11-18 07:59] VITALS: BMI 25.9
[2020-11-19 07:17] VITALS: BP 127/88; PULSE 94; RESP 16; TEMP 36; O2SAT 97; BMI 25.7
--- NOTE | 2020-11-19 07:34 | EX.ED.DYSGE1 ---
HPI History of Present Illness Chief Complaint: Numb/Ting Informant: patient Onset/Context/Timing Onset: Today Timing: Continuous Current Severity: Mild Maximum Severity: Mild Narrative Narrative: 75-year-old female past medical history of a TIA a month ago and osteoarthritis. 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 States this morning after waking up she noticed she had tingling in both feet. She denies any nausea or vomiting. Denies any chest pain or shortness of breath. Denies any abdominal pain. Denies any fever or chills. Denies any weakness. She is not off balance. No visual change. No change in her voice. Prior similar symptoms: No Recent Illness/Hospitalization: No PFSH PFSH Medical History Arthritis Confusion GERD (gastroesophageal reflux disease) High cholesterol High triglycerides HTN (hypertension) Hypoglycemia IBS (irritable bowel syndrome) Ophthalmic migraine Osteoarthritis Radiculopathy Radiculopathy of lumbar region Screening for intestinal cancer TIA (transient ischemic attack) Home Medications L.acidoph, paracasei,B. lactis 1 ea PO DAILY 05/09/19 [History Last Taken Unknown] calcium-vitamin D3-vitamin K 2 ea PO DAILY 05/09/19 [History Last Taken Unknown] [id number] 2 ea PO DAILY 05/09/19 [History Last Taken Unknown] aspirin 81 mg tablet,delayed release 81 mg PO DAILY 09/24/20 [History Last Taken Unknown] atorvastatin 40 mg tablet 40 mg PO QHS 10/15/20 [History Last Taken Unknown] Allergy/AdvReac Type Severity Reaction Status Date / Time celecoxib [From Celebrex] Allergy Rash Verified 11/19/20 07:17 etodolac [From Lodine] Allergy Rash Verified 11/19/20 07:17 valdecoxib [From Bextra] Allergy Rash Verified 11/19/20 07:17 naproxen AdvReac Other Verified 11/19/20 07:17 Family History Father Diabetes Cancer brain CVA (cerebral vascular accident) Mother Diabetes Depression Sister Cancer uterine Son Diabetes type 1 Surgical History History of colonoscopy History of local excision of skin lesion History of tonsillectomy History of vaginal surgery Social History Smoking Status: Never smoker alcohol intake: never substance use type: does not use caffeine: Yes what type of physical activity do you participate in: walking seatbelt use: always do you feel safe at home: Yes additional social history: Patient is retired ROS ROS ED ROS Narrative Denies recent illness. Review of Systems ROS Unobtainable: Denies due to encephalopathy Constitutional Constitutional ED: Denies chills or fever(s) Eyes Eyes: Denies change in vision ENT ENT ED: Denies ear pain or sore throat Cardiovascular Cardiovascular: Denies chest pain or palpitations Respiratory/Chest Respiratory/Chest: Denies dyspnea Gastrointestinal Gastrointestinal: Denies abdominal pain, diarrhea, nausea or vomiting Genitourinary Genitourinary ED: Denies dysuria Musculoskeletal Musculoskeletal: Denies arthralgias or myalgias Integumentary Denies rash Neurologic Neurologic: Denies headache(s) Psychiatric Psychiatric: Denies depression Endocrine Endocrinology: Denies polyuria Allergic/Immunologic Allergic/Immunologic ED: Denies urticaria EXAM Physical Exam Narrative Exam Narrative: 75-year-old female no acute distress. Vital signs are stable afebrile. Her blood pressure is 127/88. HEENT exam normal. Voice normal. No facial droop. Lungs clear to auscultation bilaterally. Heart regular rate and rhythm no murmur. Rate about 90. Abdomen soft nontender normal bowel sounds no peritoneal signs. Moving all 4 extremities. Normal motor strength. Normal range of motion. No edema. Neurologically she is awake alert with no focal motor deficits. Back nontender. NIH score is 0. Const Vital Signs: 11/19/20 07:17 Temperature 96.8 F L Temperature Source Temporal Pulse Rate 94 Respiratory Rate 16 Blood Pressure 127/88 H Blood Pressure Mean 101 Pulse Ox 97 Oxygen Delivery Method Room Air Positive well nourished and well developed; Negative for obese, cachectic or unkempt General Appearance ED: well developed and NAD; Negative for unkempt or cachectic Nutritional Appearance: Negative for cachectic or obese HEENT Reports moist mucous membranes Negative for trauma or tenderness Eyes PERRL and EOMs intact bilaterally Neck no lymphadenopathy, supple and no JVD General: Negative for tenderness Chest Wall inspection of chest normal and palpation of chest normal Resp normal respiratory effort and clear to auscultation bilaterally Cardio regular rate, regular rhythm, S1 normal heart sound, S2 normal heart sound and no murmurs GI normal to inspection, nondistended, normoactive bowel sounds, non-tender, non-distended and no masses Auscultation: normoactive bowel sounds Palpation: soft; Negative for tender Back/Spine no CVA tenderness Extremity normal to inspection General Extremety ED: Negative for edema or tenderness General Extremity: Negative for edema Neuro oriented x3, CN's II-XII intact bilaterally and no sensory deficits noted Sensorium / Orientation: alert; Negative for orientation impaired, lethargic or stuporous Motor Exam: strength 5/5 throughout Psych mental status grossly normal Appearance: Negative for unkempt Mood & Affect: Negative for depressed Skin no rashes or lesions noted and no wounds MDM MDM MDM Narrative Medical decision making narrative: 75-year-old female with subjective tingling in her feet bilaterally. Has a normal exam. Has normal neurologic exam. Has an NIH score is 0. I do not think she needs any further testing. She did extensive work-up a month ago for possible TIA. We will check her blood sugar because she has had a history of hypoglycemia in the past and she will be discharged home with that is normal. Discharge Plan Triage Chief Complaint: Numb/Ting ED Provider: Jack Arenas Dx/Rx/DC Orders Clinical Impression: Paresthesia Instructions: ED Paraesthesias Prescriptions: No Action aspirin [Adult Aspirin Regimen] 81 mg tablet,delayed release (DR/EC) 81 mg PO DAILY RF: 0 atorvastatin 40 mg tablet 40 mg PO QHS RF: 0 L.acidkaylynn, paracasei,B. lactis 1 EACH capsule 1 ea PO DAILY RF: 0 calcium-vitamin D3-vitamin K 1 EACH tablet,chewable 2 ea PO DAILY RF: 0 [id number] [id number] 1 EACH tablet,chewable 2 ea PO DAILY RF: 0 Primary Care Provider: Lorelei Kelly Referrals: Lorelei Kelly MD [Primary Care Provider] - 1 Week if not improving Activity Restrictions/Additional Instructions: Follow-up with your doctor. Disposition Disposition: Home, Self Care
[2020-11-19 07:41] LABS: Bedside Glucose 101 mg/dL (70-110)
== END 2020-11-19 08:05 | disposition home or self-care (01) ==
PROVIDERS: Emergency Provider Emergency Medicine; PCP Internal Medicine
DX: R20.0 Anesthesia of skin (principal); R20.2 Paresthesia of skin; M54.16 Radiculopathy, lumbar region; M19.90 Unspecified osteoarthritis, unspecified site; I10 Essential (primary) hypertension; K58.9 Irritable bowel syndrome, unspecified; E78.00 Pure hypercholesterolemia, unspecified; E78.1 Pure hyperglyceridemia; K21.9 Gastro-esophageal reflux disease without esophagitis; Z79.82 Long term (current) use of aspirin; Z79.899 Other long term (current) drug therapy; Z86.73 Personal history of transient ischemic attack (TIA), and cerebral infarction without residual deficits
CPT/HCPCS: 82962; 99282

== ENCOUNTER → 2020-11-24 10:27 | Outpatient (CLI) | payer MEDICARE, OTHER, SELFPAY ==
[2020-11-19 07:17] VITALS: BMI 25.7
--- NOTE | 2020-11-24 10:30 | RAD_ITS ---
STUDY: X-RAY - CERVICAL SPINE REASON FOR EXAM: Female, 75 years old. neck pain, father hx of tumor behind neck/base skull, pt concerned TECHNIQUE: 3 view(s) of the cervical spine were obtained. COMPARISON: None FINDINGS: Normal cervical lordosis. There is multi-level endplate spondylosis. There is C2/C3 interbody osseous fusion. There is multi-level degenerative disc disease with multilevel disc space narrowing. There is severe disc space narrowing and endplate spondylosis at C5/C6 The soft tissue structures are unremarkable. RAD/Cerv Spine 2 or 3 Views IMPRESSION: Degenerative changes of the spine. Electronically Signed: Ankur Morales MD at 13:20 EDT Tel , Service support ,
== END ==
PROVIDERS: PCP Internal Medicine; Referring Provider Psychiatry & Neurology Neurology; Visit Provider Psychiatry & Neurology Neurology
DX: M54.2 Cervicalgia (principal)
CPT/HCPCS: 72040

== ENCOUNTER → 2020-12-04 16:34 | Outpatient (CLI) | payer MEDICARE, OTHER, SELFPAY ==
[2020-11-19 07:17] VITALS: BMI 25.7
[2020-11-25 14:03] VITALS: BMI 25.7
--- NOTE | 2020-12-04 16:44 | MRI_ITS ---
STUDY: MRI BRAIN WITH AND WITHOUT CONTRAST REASON FOR EXAM: Female, 75 years old. Migraine Headache; transient altered mental status TECHNIQUE: Standardized multiplanar fat and water weighted pulse sequences were obtained. IV 15 cc dotarem was administered for the contrast portion of the examination. COMPARISON: 11/05/2020 FINDINGS: Normal size of the ventricles and extra-axial spaces for the patient''s age. There are multiple white matter hyperintensities, distributed throughout the deep white matter tracts of the cerebral hemispheres, consistent with moderate chronic white matter ischemic changes. Normal bilateral basal ganglia. Normal thalami. There is no extra-axial fluid accumulation. Normal flow voids within the major intracranial circulation suggesting patency by spin echo criteria. Normal venous enhancement. There is no enhancing intra-axial or extra-axial abnormality. Normal sella turcica, pituitary gland, infundibular stalk, optic chiasm and hypothalamus. Normal tectal plate and pineal gland. Normal midbrain, ilya and medulla. Normal cerebellum. Normal basal cisterns. Normal bilateral temporal bones. Normal bilateral internal auditory canals. No demonstrated orbital abnormality, within the constraints of a routine brain study. Normal visualized paranasal sinuses. Normal calvarium and skull base. Normal visualized soft tissue structures. Normal visualized upper cervical spine. MRI/Brain W/WO Contrast IMPRESSION: Involutional changes of the brain, as described above. Electronically Signed: Divya Valle MD at 8:12 EDT Tel , Service support ,
[2020-12-04 17:21] LABS: CREATININE FINGERSTICK 1.2 mg/dL (0.55-1.02)
== END ==
PROVIDERS: PCP Internal Medicine; Referring Provider Psychiatry & Neurology Neurology; Visit Provider Psychiatry & Neurology Neurology
DX: R41.82 Altered mental status, unspecified (principal); G43.109 Migraine with aura, not intractable, without status migrainosus; Z86.73 Personal history of transient ischemic attack (TIA), and cerebral infarction without residual deficits
CPT/HCPCS: 70553; A9575

== ENCOUNTER → 2021-01-23 08:31 | Outpatient (CLI) | payer MEDICARE, OTHER, SELFPAY ==
[2021-01-23 09:29] LABS: Hematocrit 41.6 % (37-47); Hemoglobin 13.1 g/dL (12.0-15.0); Mean Corp Hgb Conc 31.5 g/dL (32-36); Mean Corpuscular Hgb 31.9 pg (27.0-32.0); Mean Corpuscular Volume 101.2 fL (81-99); Mean Platelet Vol. 10.3 fl (6.2-12.0); Platelet Count 317 K/mm3 (150-450); RBC Distribution Width CV 13.4 % (11.6-14.6); RBC Distribution Width SD 50.4 fl (35.1-43.9); Red Blood Count 4.11 M/mm3 (4.2-5.4); White Blood Count 5.5 K/mm3 (4.4-11.0)
[2021-01-23 09:59] LABS: Vitamin B12 329 pg/mL (211-911)
[2021-01-23 10:44] LABS: ALB/GLOB Ratio 0.9 RATIO (0.9-2.4); AST(SGOT) 27 U/L (15-37); Alanine Aminotransfer ALT/SGPT 36 U/L (13-56); Albumin, Serum 3.5 g/dL (3.2-5.0); Alkaline Phosphatase 56 U/L (45-117); Anion Gap 6 (5-15); BUN 10 mg/dL (7-18); BUN/Creat Ratio 10.2 RATIO (10-20); Calcium,Total 8.8 mg/dL (8.5-10.1); Chloride 107 mmol/L (98-107); Cholesterol 152 mg/dL (200); Creatinine, Serum 0.98 mg/dL (0.55-1.02); EST Glomerular Filtration Rate 59 mL/min (>60); Est Glom Filt Rate - Afr Amer 71 mL/min (>60); Globulin 3.7 g/dL (2.2-4.2); Glucose 93 mg/dL (74-106); High Density Lipoprotein 45 mg/dL; Potassium 4.2 mmol/L (3.5-5.1); Protein, Total 7.2 g/dL (6.4-8.2); Sodium Level 142 mmol/L (136-145); Thyroid Stim Hormone (TSH) 3.41 uIU/mL (0.358-3.74); Triglycerides 195 mg/dL; Very Low Density Lipoprotein 39 mg/dL (5-40)
== END ==
PROVIDERS: PCP Internal Medicine; Visit Provider Psychiatry & Neurology Neurology
DX: R41.82 Altered mental status, unspecified (principal); G43.109 Migraine with aura, not intractable, without status migrainosus; Z86.73 Personal history of transient ischemic attack (TIA), and cerebral infarction without residual deficits
CPT/HCPCS: 36415; 80053; 80061; 82607; 82746; 84443; 85027

== ENCOUNTER 2021-05-12 06:46 | Day surgery (SDC) | payer MEDICARE, OTHER, SELFPAY ==
[2021-05-11 08:53] VITALS: BMI 26.1
[2021-05-12 07:13] LABS: Anion Gap 6 (5-15); BUN 20 mg/dL (7-18); Calcium,Total 9.6 mg/dL (8.5-10.1); Chloride 107 mmol/L (98-107); Creatinine, Serum 1.05 mg/dL (0.55-1.02); EST Glomerular Filtration Rate 54 mL/min (>60); Est Glom Filt Rate - Afr Amer 66 mL/min (>60); Glucose 97 mg/dL (74-106); Potassium 4.2 mmol/L (3.5-5.1); Sodium Level 140 mmol/L (136-145)
--- NOTE | 2021-05-12 08:19 | CL.IE_ITS ---
Patient: MORRIS OWEN Study Date: 05/12/2021 Performing: Cuate Lenz MD : 1945 Age: 75 Gender: female PROCEDURES PERFORMED [id number])INSERTION OF LOOP RECORDER INDICATIONS Cryptogenic stroke PROCEDURE DETAILS The patient was brought to the Catheterization Lab in the postabsorptive nonsedated state. [facility] consent was obtained prior to the procedure. Local anesthetic was given subcutaneously to the le ft upper chest area with Lidocaine 2%. Incision was made to the left upper chest. ICM Loop Recorder w as inserted. The patient tolerated the procedure well. 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 Device Recommendations: Follow up with Primary Care Physician PROCEDURE MEDICATIONS Versed 1 mg IV Oxygen: 2 L/min via nasal cannula Antibiotic given in appropriate timeframe. Ancef 2 Gm IV @ 05/12/2021 07:54:56 Signed By Cuate Lenz MD On 05/12/2021 08:18:25 Cuate Lenz MD
[2021-05-12 13:40] LABS: Bedside Glucose 142 mg/dL (70-110)
== END 2021-05-12 23:59 | disposition home or self-care (01) ==
LOC: CLSP 06:48
PROVIDERS: Internal Medicine Cardiovascular Disease; PCP Internal Medicine; Referring Provider Internal Medicine Cardiovascular Disease; Visit Provider Internal Medicine Cardiovascular Disease
DX: I49.5 Sick sinus syndrome (principal); I10 Essential (primary) hypertension; Z86.73 Personal history of transient ischemic attack (TIA), and cerebral infarction without residual deficits; M19.90 Unspecified osteoarthritis, unspecified site; K21.9 Gastro-esophageal reflux disease without esophagitis; E78.00 Pure hypercholesterolemia, unspecified; K58.9 Irritable bowel syndrome, unspecified; Z79.82 Long term (current) use of aspirin; Z79.899 Other long term (current) drug therapy
CPT/HCPCS: 33285; 36415; 80048; 82962; 99152; 99153; J7040

== ENCOUNTER 2021-06-24 13:30 | Outpatient (CLI) | payer MEDICARE, OTHER, SELFPAY ==
[2021-06-24 15:42] LABS: Absolute Lymphocyte Count 1.86 X10^3/uL (0.83-4.51); Basophil# 0.03 X10^3/uL; Basophil% 0.4 % (0-1); Eosinophil# 0.09 X10^3/uL; Eosinophils% 1.2 % (0-5); Hematocrit 41.2 % (37-47); Hemoglobin 13.5 g/dL (12.0-15.0); Lymphocyte # 1.86 X10^3/ul (0.83-4.51); Lymphocyte % 24.4 % (19-41); Mean Corp Hgb Conc 32.8 g/dL (32-36); Mean Corpuscular Hgb 33.4 pg (27.0-32.0); Mean Platelet Vol. 10.8 fl (6.2-12.0); Monocyte# 0.59 X10^3/uL; Monocyte% 7.7 % (0-10); NRBC Flagged by Analyzer 0 % (0-5); Neutrophil # 5.03 X10^3/uL (2.7-7.7); Platelet Count 322 K/mm3 (150-450); RBC Distribution Width CV 12.8 % (11.6-14.6); RBC Distribution Width SD 48.2 fl (35.1-43.9); Red Blood Count 4.04 M/mm3 (4.2-5.4); White Blood Count 7.6 K/mm3 (4.4-11.0)
[2021-06-24 15:46] LABS: Erythrocyte Sedimentation Rate 5 mm/hr (0-30)
[2021-06-24 16:07] LABS: ALB/GLOB Ratio 1.1 RATIO (0.9-2.4); AST(SGOT) 21 U/L (15-37); Alanine Aminotransfer ALT/SGPT 31 U/L (13-56); Albumin, Serum 3.9 g/dL (3.2-5.0); Alkaline Phosphatase 52 U/L (45-117); Anion Gap 5 (5-15); BUN 11 mg/dL (7-18); BUN/Creat Ratio 11.5 RATIO (10-20); CRP < 2.90 mg/L (0.0-3.0); Chloride 105 mmol/L (98-107); Creatinine, Serum 0.96 mg/dL (0.55-1.02); EST Glomerular Filtration Rate 60 mL/min (>60); Est Glom Filt Rate - Afr Amer 73 mL/min (>60); Globulin 3.5 g/dL (2.2-4.2); Glucose 83 mg/dL (74-106); Potassium 4.1 mmol/L (3.5-5.1); Protein, Total 7.4 g/dL (6.4-8.2); Sodium Level 139 mmol/L (136-145)
[2021-06-26 15:14] LABS: ANTINUCLEAR ANTIBODIES DIRECT Negative (Negative)
== END 2021-06-24 23:59 | disposition home or self-care (01) ==
LOC: MTLAB 13:32
PROVIDERS: PCP Internal Medicine; Referring Provider Internal Medicine; Visit Provider Internal Medicine
DX: R68.2 Dry mouth, unspecified (principal); I10 Essential (primary) hypertension
CPT/HCPCS: 36415; 80053; 85025; 85652; 86038; 86140; 86225; 86235

== ENCOUNTER → 2021-10-29 | Outpatient (CLI) | payer MEDICARE, OTHER, SELFPAY ==
[2021-10-29 09:01] LABS: Absolute Lymphocyte Count 1.61 X10^3/uL (0.83-4.51); Absolute Neutrophil Count 2.8 X10^3/uL (2.0-7.7); Basophil# 0.03 X10^3/uL; Basophil% 0.6 % (0-1); Eosinophil# 0.12 X10^3/uL; Eosinophils% 2.4 % (0-5); Hematocrit 43.3 % (37-47); Hemoglobin 13.3 g/dL (12.0-15.0); Lymphocyte # 1.61 X10^3/ul (0.83-4.51); Lymphocyte % 32.1 % (19-41); Mean Corp Hgb Conc 30.7 g/dL (32-36); Mean Corpuscular Hgb 31.9 pg (27.0-32.0); Mean Corpuscular Volume 103.8 fL (81-99); Mean Platelet Vol. 10.1 fl (6.2-12.0); Monocyte# 0.43 X10^3/uL; Monocyte% 8.6 % (0-10); NRBC Flagged by Analyzer 0 % (0-5); Neutrophil % 55.9 % (47-70); Platelet Count 304 K/mm3 (150-450); RBC Distribution Width CV 12.5 % (11.6-14.6); RBC Distribution Width SD 47.7 fl (35.1-43.9); Red Blood Count 4.17 M/mm3 (4.2-5.4)
[2021-10-29 09:29] LABS: AST(SGOT) 23 U/L (15-37); Alanine Aminotransfer ALT/SGPT 31 U/L (13-56); Albumin, Serum 3.6 g/dL (3.2-5.0); Alkaline Phosphatase 46 U/L (45-117); Anion Gap 4 (5-15); BUN 11 mg/dL (7-18); BUN/Creat Ratio 11.6 RATIO (10-20); Calcium,Total 8.9 mg/dL (8.5-10.1); Chloride 108 mmol/L (98-107); Cholesterol 142 mg/dL (200); Creatinine, Serum 0.95 mg/dL (0.55-1.02); EST Glomerular Filtration Rate 61 mL/min (>60); Est Glom Filt Rate - Afr Amer 74 mL/min (>60); Globulin 3.5 g/dL (2.2-4.2); Glucose 98 mg/dL (74-106); High Density Lipoprotein 42 mg/dL; Protein, Total 7.1 g/dL (6.4-8.2); Sodium Level 142 mmol/L (136-145); Triglycerides 231 mg/dL; Very Low Density Lipoprotein 46 mg/dL (5-40)
[2021-10-29 09:32] LABS: Vitamin B12 575 pg/mL (211-911); Vitamin D,25 Hydroxy 63.1 ng/mL
== END | disposition home or self-care (01) ==
LOC: LAB 08:18
PROVIDERS: PCP Internal Medicine; Referring Provider Internal Medicine; Visit Provider Internal Medicine
DX: I10 Essential (primary) hypertension (principal); E55.9 Vitamin D deficiency, unspecified; M19.90 Unspecified osteoarthritis, unspecified site; E53.8 Deficiency of other specified B group vitamins
CPT/HCPCS: 36415; 80053; 80061; 82306; 82607; 85025

== ENCOUNTER → 2021-12-24 | Outpatient (CLI) | payer MEDICARE, OTHER, SELFPAY ==
[2021-12-24 08:31] LABS: Absolute Neutrophil Count 4.1 X10^3/uL (2.0-7.7); Basophil# 0.03 X10^3/uL; Basophil% 0.4 % (0-1); Eosinophil# 0.15 X10^3/uL; Eosinophils% 1.9 % (0-5); Hematocrit 44.7 % (37-47); Hemoglobin 14.2 g/dL (12.0-15.0); Lymphocyte % 37.2 % (19-41); Mean Corp Hgb Conc 31.8 g/dL (32-36); Mean Corpuscular Hgb 32.8 pg (27.0-32.0); Mean Corpuscular Volume 103.2 fL (81-99); Mean Platelet Vol. 9.6 fl (6.2-12.0); Monocyte# 0.75 X10^3/uL; Monocyte% 9.3 % (0-10); NRBC Flagged by Analyzer 0 % (0-5); Neutrophil # 4.09 X10^3/uL (2.7-7.7); Neutrophil % 50.6 % (47-70); Platelet Count 359 K/mm3 (150-450); RBC Distribution Width CV 13.3 % (11.6-14.6); RBC Distribution Width SD 50.9 fl (35.1-43.9); Red Blood Count 4.33 M/mm3 (4.2-5.4); White Blood Count 8.1 K/mm3 (4.4-11.0)
[2021-12-24 08:32] LABS: Erythrocyte Sedimentation Rate 4 mm/hr (0-30)
[2021-12-24 09:04] LABS: AST(SGOT) 20 U/L (15-37); Alanine Aminotransfer ALT/SGPT 43 U/L (13-56); Albumin, Serum 3.6 g/dL (3.2-5.0); Alkaline Phosphatase 46 U/L (45-117); Anion Gap 6 (5-15); BUN 14 mg/dL (7-18); Chloride 105 mmol/L (98-107); Creatinine, Serum 1.08 mg/dL (0.55-1.02); EST Glomerular Filtration Rate 53 mL/min (>60); Est Glom Filt Rate - Afr Amer 64 mL/min (>60); Free T3 3.1 pg/mL (2.18-3.98); Globulin 3.5 g/dL (2.2-4.2); Glucose 87 mg/dL (74-106); Protein, Total 7.1 g/dL (6.4-8.2); Sodium Level 142 mmol/L (136-145); T4 Free Direct 0.99 ng/dL (0.76-1.46); Thyroid Stim Hormone (TSH) 5.99 uIU/mL (0.358-3.74)
[2021-12-24 10:02] LABS: Vitamin B12 > 2000 pg/mL (211-911)
== END | disposition home or self-care (01) ==
PROVIDERS: PCP Internal Medicine; Visit Provider Internal Medicine
DX: R00.0 Tachycardia, unspecified (principal); R42 Dizziness and giddiness; E53.8 Deficiency of other specified B group vitamins
CPT/HCPCS: 36415; 80053; 82607; 84439; 84443; 84481; 85025; 85652

== ENCOUNTER 2022-02-02 14:59 | Emergency (ER) | payer MEDICARE, OTHER, SELFPAY ==
[2022-02-02 15:00] VITALS: BP 135/84; PULSE 93; RESP 16; TEMP 36.7; O2SAT 97; BMI 26.1
[2022-02-02 16:43] LABS: Absolute Neutrophil Count 4.2 X10^3/uL (2.0-7.7); Basophil# 0.03 X10^3/uL; Basophil% 0.4 % (0-1); Eosinophil# 0.07 X10^3/uL; Hematocrit 41.7 % (37-47); Hemoglobin 13.4 g/dL (12.0-15.0); Mean Corp Hgb Conc 32.1 g/dL (32-36); Mean Corpuscular Hgb 32.4 pg (27.0-32.0); Mean Platelet Vol. 10.1 fl (6.2-12.0); Monocyte# 0.58 X10^3/uL; Monocyte% 8.5 % (0-10); NRBC Flagged by Analyzer 0 % (0-5); Neutrophil # 4.19 X10^3/uL (2.7-7.7); Neutrophil % 61.8 % (47-70); Platelet Count 313 K/mm3 (150-450); RBC Distribution Width CV 13.1 % (11.6-14.6); RBC Distribution Width SD 48.9 fl (35.1-43.9); Red Blood Count 4.13 M/mm3 (4.2-5.4); White Blood Count 6.8 K/mm3 (4.4-11.0)
[2022-02-02 16:58] LABS: Anion Gap 5 (5-15); BUN 10 mg/dL (7-18); BUN/Creat Ratio 9.8 RATIO (10-20); CRP < 2.90 mg/L (0.0-3.0); Calcium,Total 9.8 mg/dL (8.5-10.1); Chloride 106 mmol/L (98-107); Creatinine, Serum 1.02 mg/dL (0.55-1.02); EST Glomerular Filtration Rate 56 mL/min (>60); Est Glom Filt Rate - Afr Amer 68 mL/min (>60); Estimated Creatinine Clearance 42.88 ml/min; Glucose 91 mg/dL (74-106); Potassium 3.8 mmol/L (3.5-5.1); Sodium Level 141 mmol/L (136-145)
[2022-02-02 16:59] VITALS: RESP 18
[2022-02-02 17:06] LABS: Erythrocyte Sedimentation Rate 12 mm/hr (0-30)
[2022-02-02 18:00] VITALS: RESP 18
--- NOTE | 2022-02-02 18:16 | EDS_ITS ---
HPI History of Present Illness Chief Complaint: Headache Detail of Chief Complaint: Started prior to arrival Informant: patient Onset/Context/Timing Onset: Hours Context: Sudden, Gradual, Exertional, Onset, CO Exposure and Activity Timing: Continuous Quality -Headache: Positive for Dull Location: Right side of the head and occiput Current Severity: Mild Maximum Severity: Moderate Worsened by: Possibly light Relieved by: Nothing Associated Symptoms/Injury Associated Symptoms: Positive for Visual Changes (Fragmented vision right I only) and Photophobia; Negative for Fever, Nausea, Vomiting, Sore Throat, Sinus Pressure, Numbness, Tingling, Preceding Aura, Blurred Vision or Visual Loss Injury - MCCLAIN: Negative for Direct Trauma Narrative Narrative: Patient is a 76-year-old woman. Patient has history of chronic tension headaches. She has had history of TIA. Patient was told to come to the emergency room after discussing case with Saira Odom's nurse. She had a loop recorder placed because of concern for cryptogenic atrial fib. Her symptoms are not similar to her TIA. When she had TIA she had sensory and motor deficits. She reports mild light sensitivity. She reports pain right congregational area. She denies ringing or ears decreased hearing or drainage from ears. She denies rhinorrhea, postnasal drainage or congestion. She denies sore throat. She does report posterior right neck pain. She denies cardiac respiratory symptoms. She denies nausea or vomiting. She denies dermatologic lesions. She denies history of trauma. She states she had an aura. When it asked to explain what she meant she described this event with her eye. Patient initially stated seconds. After further questioning determined this probably lasted 5 minutes. She was at the library. She was talking with a friend looking at the sunlight. She states when she was walking out of the library she had this fragmented vision involving the right eye only. This was associated with headache. The headache was unilateral. She also complained of unilateral right neck pain. 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 She was able to drive home. She states it takes 10 minutes to go to the library to place to get her salad. Based on the length of time it took her to drive it is safe to say that the visual change was present for 10 minutes. The headache has been present since onset. She denies neck stiffness. She denies paresthesia, anesthesia or motor concern or upper or lower study. Denies problems with balance or coordination. Denies trouble speech or swallowing. She has been told that this is an aura. She is also been told this is ocular migraine. She states no one has been able to tell her the cause of this visual change. Prior similar symptoms: Yes Recent Illness/Hospitalization: No PFSH PFSH Medical History Allergic dermatitis Arthritis B12 deficiency Confusion Essential hypertension Fatigue GERD (gastroesophageal reflux disease) High cholesterol High triglycerides HTN (hypertension) Hypoglycemia IBS (irritable bowel syndrome) Ophthalmic migraine Osteoarthritis Radiculopathy Radiculopathy of lumbar region Screening for intestinal cancer Sinus arrhythmia Sinus bradycardia Sinus pause Sinus tachycardia Tension headache, chronic TIA (transient ischemic attack) Home Medications L.acidoph, paracasei,B. lactis 10 billion cell capsule 1 ea PO DAILY 05/09/19 [History Last Taken Unknown] calcium 650 mg-vitamin D3 12.5 mcg-vitamin K 40 mcg chewable tablet 2 ea PO DAILY 05/09/19 [History Last Taken Unknown] [id number] acid 200 mcg-herbal no.293 37.5 mg chewable tablet 2 ea PO DAILY 05/09/19 [History Last Taken Unknown] aspirin 81 mg tablet,delayed release (Adult Aspirin Regimen) 81 mg PO DAILY 03/17/21 [History Last Taken Unknown] acetaminophen 500 mg capsule 500 mg PO BID 09/30/21 [History Last Taken Unknown] hydrocortisone 2.5 % topical cream 1 applic topical BID PRN skin irritation #30 grams 12/31/21 [Rx Last Taken Unknown] Allergy/AdvReac Type Severity Reaction Status Date / Time celecoxib [From Celebrex] Allergy Rash Verified 02/02/22 15:00 etodolac [From Lodine] Allergy Rash Verified 02/02/22 15:00 valdecoxib [From Bextra] Allergy Rash Verified 02/02/22 15:00 naproxen AdvReac Other Verified 02/02/22 15:00 Family History Father Diabetes Cancer brain CVA (cerebral vascular accident) Mother Diabetes Depression Sister Cancer uterine Son Diabetes type 1 Surgical History History of colonoscopy History of local excision of skin lesion History of tonsillectomy History of vaginal surgery Status post placement of implantable loop recorder (~05/12/21) Social History (Updated 02/02/22 @ 18:[address] Joe Duval MD) household members: none Smoking Status: Never smoker alcohol intake: never substance use type: does not use caffeine: Yes what type of physical activity do you participate in: walking seatbelt use: always do you feel safe at home: Yes additional social history: Patient is retired ROS ROS ED Constitutional Constitutional ED: Denies chills, fever(s), subjective, sweats or weight loss Eyes Eyes: Reports other Details: Per HPI narrative ENT ENT ED: Denies ear pain, rhinorrhea or sore throat Cardiovascular Cardiovascular: Denies chest pain or palpitations Respiratory/Chest Respiratory/Chest: Denies cough, dyspnea or dyspnea on exertion Gastrointestinal Gastrointestinal: Denies abdominal pain, nausea or vomiting Genitourinary Genitourinary ED: Denies dysuria, hematuria or urinary frequency Musculoskeletal Musculoskeletal: Reports neck pain; Denies arthralgias, back pain or myalgias Integumentary Denies abscess, Abrasions or rash Neurologic Neurologic: Reports headache(s) and other Details: Per HPI narrative ; Denies paresthesias or weakness Psychiatric Psychiatric: Reports other Details: Patient became frustrated during the history and made the comment I guess I should not be here. ; Denies anxiety Endocrine Endocrinology: Denies polydipsia or polyphagia EXAM Physical Exam Const Vital Signs: 02/02/22 15:00 02/02/22 16:59 Temperature 98.1 F Temperature Source Temporal Pulse Rate 93 Respiratory Rate 16 18 Blood Pressure 135/84 H Blood Pressure Mean 101 Pulse Ox 97 Oxygen Delivery Method Room Air Positive well nourished and well developed; Negative for obese, cachectic, contractures or unkempt General Appearance ED: well developed and NAD; Negative for unkempt, cachectic, contractures, cyanotic, diaphoretic or pallor Nutritional Appearance: Negative for cachectic or obese HEENT Reports normocephalic, TM's clear and moist mucous membranes HEENT Narrative: Nares patent. Posterior Prantal erythema or exudate. Uvula midline. No deviation with protrusion. temporal artery tenderness right; Negative for tenderness or vesicular rash Tympanic Membrane ED: Yes TM's clear Eyes PERRL and EOMs intact bilaterally Eyes Narrative: There is no APD. Cup-to-disc ratio normal. There is no papilledema. Venous pulsations noted bilaterally. General Eye ED: Negative for pale conjunctiva or scleral icterus Neck no lymphadenopathy, supple and no meningeal signs Resp normal respiratory effort and clear to auscultation bilaterally Cardio regular rate, regular rhythm, S1 normal heart sound, S2 normal heart sound and no murmurs GI non-tender and non-distended Auscultation: normoactive bowel sounds Back/Spine no CVA tenderness Back/Spine Narrative: There is no nuchal rigidity or meningeal findings. Cervical Spine: Negative for cervical spine tenderness Thoracic Spine / Upper Back: Negative for thoracic spinal tenderness Extremity normal to inspection, full ROM and normal capillary refill Neuro oriented x3, CN's II-XII intact bilaterally and no sensory deficits noted Lary Coma Scale: document GCS findings Spontaneous Obeys Commands Oriented 15 Sensorium / Orientation: awake Psych mental status grossly normal Appearance: Negative for unkempt Mood & Affect: Negative for depressed Skin General Skin Exam: elasticity normal; Negative for jaundice or pallor Lesions: no lesions Rashes: no rashes MDM MDM MDM Narrative Medical decision making narrative: Patient does have by ocular involvement if this is a migraine since with involved the cortex which is posterior to chiasm. Symptoms not consistent with a retinal detachment. Since she has tenderness over the temporal artery ESR and CRP was obtained. CBC was obtained to assess white count and differential. Believe there is a component of anxiety. As previously documented patient states she has had this before and no one knows the exact cause. Lab Data Attestation: I reviewed the patient's lab results. Labs: Laboratory Results - last 24 hr 02/02/22 02/02/22 16:30 16:30 WBC 6.8 RBC 4.13 L Hgb 13.4 Hct 41.7 MCV 101.0 H MCH 32.4 H MCHC 32.1 RDW Std Deviation 48.9 H RDW Coeff of Srinath 13.1 Plt Count 313 MPV 10.1 Immature Gran % (Auto) 0.300 Neut % (Auto) 61.8 Lymph % (Auto) 28.0 Stokes % (Auto) 8.5 Eos % (Auto) 1.0 Baso % (Auto) 0.4 Absolute Neuts (auto) 4.2 Absolute Lymphs (auto) 1.90 Nucleated RBC % 0 ESR 12 Sodium 141 Potassium 3.8 Chloride 106 Carbon Dioxide 30.0 Anion Gap 5 BUN 10 Creatinine 1.02 Estim Creat Clear Calc 42.88 Est GFR (MDRD) Af Amer 68 Est GFR (MDRD) Non-Af 56 L BUN/Creatinine Ratio 9.8 L Glucose 91 Calcium 9.8 C-React Prot Ext Range < 2.90 Discharge Plan Triage Chief Complaint: Headache ED Provider: Joe Duval Dx/Rx/DC Orders Clinical Impression: Unilateral occipital headache, Blurring of visual image of right eye, History of TIAs Instructions: ED Blurred Vision, ED Pain, Acute, Uncertain Cause Prescriptions: No Action aspirin [Adult Aspirin Regimen] 81 mg tablet,delayed release (DR/EC) 81 mg PO DAILY acetaminophen 500 mg capsule 500 mg PO BID hydrocortisone 2.5 % cream 1 applic topical BID PRN (Reason: skin irritation) Qty: 30 3RF L.acidoph, paracasei,B. lactis 1 EACH capsule 1 ea PO DAILY calcium-vitamin D3-vitamin K 1 EACH tablet,chewable 2 ea PO DAILY [id number] 1 EACH tablet,chewable 2 ea PO DAILY Primary Care Provider: Lorelei Kelly Referrals: Lorelei Kelly MD [Primary Care Provider] - 3-5 Days Disposition Disposition: Home, Self Care
== END 2022-02-02 18:50 | disposition home or self-care (01) ==
PROVIDERS: Emergency Provider Emergency Medicine; PCP Internal Medicine; Visit Provider Emergency Medicine
DX: R51.9 Headache, unspecified (principal); H53.8 Other visual disturbances; I10 Essential (primary) hypertension; M54.2 Cervicalgia; E78.00 Pure hypercholesterolemia, unspecified; M19.90 Unspecified osteoarthritis, unspecified site; K21.9 Gastro-esophageal reflux disease without esophagitis; Z79.82 Long term (current) use of aspirin; Z79.899 Other long term (current) drug therapy; Z86.73 Personal history of transient ischemic attack (TIA), and cerebral infarction without residual deficits
CPT/HCPCS: 80048; 85025; 85652; 86140; 99283; A4216

== ENCOUNTER → 2022-04-30 | Outpatient (CLI) | payer MEDICARE, OTHER, SELFPAY ==
[2022-04-30 14:20] LABS: Absolute Lymphocyte Count 2.11 X10^3/uL (0.83-4.51); Absolute Neutrophil Count 4.7 X10^3/uL (2.0-7.7); Basophil# 0.01 X10^3/uL; Basophil% 0.1 % (0-1); Eosinophil# 0.04 X10^3/uL; Eosinophils% 0.5 % (0-5); Hemoglobin 13.7 g/dL (12.0-15.0); Lymphocyte # 2.11 X10^3/ul (0.83-4.51); Lymphocyte % 28.7 % (19-41); Mean Corp Hgb Conc 31.9 g/dL (32-36); Mean Corpuscular Hgb 32.5 pg (27.0-32.0); Mean Corpuscular Volume 101.9 fL (81-99); Mean Platelet Vol. 10.5 fl (6.2-12.0); Monocyte# 0.51 X10^3/uL; Monocyte% 6.9 % (0-10); NRBC Flagged by Analyzer 0 % (0-5); Neutrophil # 4.66 X10^3/uL (2.7-7.7); Neutrophil % 63.4 % (47-70); Platelet Count 350 K/mm3 (150-450); RBC Distribution Width CV 12.5 % (11.6-14.6); RBC Distribution Width SD 47.1 fl (35.1-43.9); Red Blood Count 4.22 M/mm3 (4.2-5.4); White Blood Count 7.4 K/mm3 (4.4-11.0)
[2022-04-30 14:51] LABS: ALB/GLOB Ratio 1.2 RATIO (0.9-2.4); AST(SGOT) 23 U/L (15-37); Alanine Aminotransfer ALT/SGPT 33 U/L (13-56); Albumin, Serum 4.2 g/dL (3.2-5.0); Alkaline Phosphatase 45 U/L (45-117); Anion Gap 5 (5-15); BUN 13 mg/dL (7-18); BUN/Creat Ratio 13.8 RATIO (10-20); Calcium,Total 9.6 mg/dL (8.5-10.1); Chloride 106 mmol/L (98-107); Cholesterol 150 mg/dL (200); Creatinine, Serum 0.94 mg/dL (0.55-1.02); EST Glomerular Filtration Rate 61 mL/min (>60); Est Glom Filt Rate - Afr Amer 74 mL/min (>60); Globulin 3.5 g/dL (2.2-4.2); Glucose 88 mg/dL (74-106); High Density Lipoprotein 52 mg/dL; Potassium 3.8 mmol/L (3.5-5.1); Protein, Total 7.7 g/dL (6.4-8.2); Sodium Level 140 mmol/L (136-145); Triglycerides 169 mg/dL; Very Low Density Lipoprotein 34 mg/dL (5-40)
[2022-04-30 15:02] LABS: Free T3 2.6 pg/mL (2.18-3.98); T4 Free Direct 0.94 ng/dL (0.76-1.46); Thyroid Stim Hormone (TSH) 3.39 uIU/mL (0.358-3.74)
== END | disposition home or self-care (01) ==
LOC: LAB 12:35
PROVIDERS: PCP Internal Medicine; Visit Provider Internal Medicine
DX: E78.5 Hyperlipidemia, unspecified (principal); R79.89 Other specified abnormal findings of blood chemistry
CPT/HCPCS: 36415; 80053; 80061; 84439; 84443; 84481; 85025

== ENCOUNTER → 2022-11-22 | Outpatient (CLI) | payer MEDICARE, OTHER, SELFPAY ==
--- NOTE | 2022-11-22 | RAD_ITS ---
STUDY: X-RAY - ABDOMEN/PELVIS REASON FOR EXAM: Female, 77 years old. DIARRHEA TECHNIQUE: Single AP view of the abdomen / pelvis. COMPARISON: None. FINDINGS: Elevation of the right hemidiaphragm. There is a moderate amount of colonic fecal material. The visualized liver, spleen and kidneys are grossly normal in size and morphology. Normal soft tissue structures. There are diffuse degenerative changes of the visualized lumbar spine. RAD/Abdomen Single View IMPRESSION: Moderate amount of fecal material is seen in the colon. Electronically Signed: Morgan Nice MD at 10:04 EDT ,
--- NOTE | 2022-11-22 07:52 | US_ITS ---
STUDY: ABDOMINAL ULTRASOUND - RIGHT UPPER QUADRANT REASON FOR VISIT: Female, 77 years old Postprandial diarrhea, repeated bloating. TECHNIQUE: Ultrasound evaluation of the right upper quadrant was performed with real-time and static taveras-scale imaging. TECHNICAL QUALITY: Adequate. COMPARISON: None. FINDINGS: Liver: The liver measures 14.5 cm. There is increased echogenicity consistent with fatty infiltration. The bile ducts are within normal limits. There is hepatic color flow. The direction of portal flow is hepatopetal. There is no demonstrated mass lesion. Gallbladder: Normal distended gallbladder. The gallbladder wall measures 2.7 mm. There is a negative sonographic Davenport''s sign. There is no pericholecystic fluid. There are no gallstones. Common Bile Duct (C.B.D.): The common bile duct measures 3.2 mm. Pancreas: Normal size of the head, body and tail of the pancreas. There is normal echogenicity of the pancreas. There is no demonstrated pancreatic mass or cyst. Right Kidney: Normal size of the right kidney. The right kidney measures 10 cm x 4.7 cm x 4.1 cm. Normal renal cortex. The right cortex measures 1.8 cm. There is no demonstrated renal mass or cyst. There is no right hydronephrosis. US/Gallbladder IMPRESSION: Mild degree of fatty infiltration of the liver. Electronically Signed: Morgan Nice MD at 12:58 EDT ,
--- NOTE | 2022-11-22 08:22 | NM_ITS ---
CLINICAL: 77-year-old female with history of postprandial abdominal bloating. RADIONUCLIDE HEPATOBILIARY SCINTIGRAPHY COMPARISON: Abdominal ultrasound report 11/22/2022 FINDINGS: Following the intravenous administration of 5.5 mCi of 99m Tc Mebrofenin, hepatobiliary images reveal: 1. Relatively prompt and homogeneous radiopharmaceutical concentration is noted by a normal sized liver. No parenchymal defects are identified. 2. Gallbladder activity is identified at 10 minutes post radiopharmaceutical administration. 3. Small intestinal tract is observed at 30 minutes following tracer injection. 4. Washout of the radiopharmaceutical by the hepatic parenchyma appears qualitatively normal. Cholecystokinin (0.02 ug/kg) was administered intravenously over a 30-minute period. The post CCK gallbladder ejection fraction calculated at 20 minutes following Cholecystokinin administration was noted to be 9.0 % (normal greater than 35%). CO/Hepatobilliary Img w/Pharm Int IMPRESSION: 1. ABNORMAL 99m Tc Mebrofenin hepatobiliary imaging examination with Cholecystokinin. A. A gallbladder ejection fraction calculated to be less than 35% following the administration of Cholecystokinin is consistent with the presence of functional hepatobiliary disease (gallbladder and/or sphincter of Oddi dyskinesia) and/or organic hepatobiliary disease (chronic acalculous cholecystitis and/or cystic duct syndrome) in patients with intermediate to high pretest probabilities of hepatobiliary illness. (Supriya Vigil et al, Journal of Nuclear Medicine 32:1695, 1991). Electronically Signed: Sam Wilson, at 23:26 EDT ,
== END | disposition home or self-care (01) ==
LOC: NM 07:51
PROVIDERS: PCP Internal Medicine; Referring Provider Internal Medicine; Visit Provider Internal Medicine
DX: K52.9 Noninfective gastroenteritis and colitis, unspecified (principal); R14.0 Abdominal distension (gaseous)
CPT/HCPCS: 74018; 76705; 78227; A9537; J2805

== ENCOUNTER → 2023-05-04 | Outpatient (CLI) | payer MEDICARE, OTHER, SELFPAY ==
--- NOTE | 2023-05-04 15:10 | RAD_ITS ---
STUDY: X-RAY - PELVIS AND RIGHT HIP REASON FOR EXAM: Female, 77 years old. right hip pain TECHNIQUE: 3 views of the pelvis and hip. COMPARISON: None. FINDINGS: There is a non-specific bowel gas pattern. Normal visualized soft tissue structures. There is narrowing with cortical sclerosis and osteophyte formation of the sacroiliac joint consistent with degenerative osteoarthritic changes. Normal bilateral superior and inferior pubic rami. Normal pubic symphysis. Normal bilateral ischial tuberosities. Normal visualized femoral head. Normal acetabulum. There is moderate articular joint space narrowing of the hip. Similar arthritic changes noted in the left hip. RAD/HIP, UNI W/ Pelvis 2-3 Views IMPRESSION: Age consistent hip and SI joint arthrosis, no demonstrated fracture or suspicious osseous lesion. However, hip and pelvic fractures in patients of this age can be subtle, if there is strong clinical suspicion of a fracture, recommend further evaluation with CT Electronically Signed: Marciano Little MD at 23:27 EST ,
--- OUTSIDE RECORDS SUMMARY | 2023-05-04 15:30 | XMS RPT_ITS | CCD ---
Author Name Unknown Address [address] [facility] [address] [place] [address] Organization [facility] Care Team Providers Care Facing Baster Jumpbasting Name Role Phone Sharon Palmer Primary Care Provider Bautista Bland) Primary Care Provide r JENS PERSAUD-CHI Referring Unavailable TOYIN MULLER Attending Unavailable KYRA KELLY Primary Care Unavailable Kyra Kelly MD Primary Care Provider Allergies Allergy Classification Reported Allergen(s) Allergy Type Date of Onset Reaction(s) Facility NSAIDs (2 sources) celecoxib Drug Allergy 01-25-2005 Rash, Itching [facility] Work Phone: valdecoxib (1 source) valdecoxib Drug Allergy 01-25-2005 Rash [facility] Work Phone: (3 sources) celecoxib Drug Allergy 01-25-2005 Rash [facility] Work Phone: (3 sources) Etodolac Drug Allergy 01-25-2005 Itching [facility] Work Phone: (3 sources) valdecoxib Drug Allergy 01-25-2005 Rash [facility] Work Phone: Medications Completed/Discontinued Medications Medication Drug Class(es) Dates Sig (Normalized) Sig (Original) acetaminophen 500 mg oral tablet (4 sources) Start: 11-15-2013 take 2 tablets by mouth every six hours as needed acetaminophen (TYLENOL EXTRA STRENGTH) 500 mg tablet Take 2 tablets by mouth every 6 hours as needed for Pain. 0 11/15/2013 Active Problems Active Problems Problem Classification Problem Date Documented Da te Episodic/Chronic Disorders of lipid metabolism (4 sources) Hyperlipidemia; Translations: [Hyperlipidemia, unspecified] Onset: 01-25-2005 01-14-2014 Chronic Osteoarthritis (5 sources) Osteoarthritis; Translations: [Unspecified osteoarthritis, unspecified site] Onset: 02-05-2009 02-05-2009 Chronic Other connective tissue disease (2 sources) Ganglion cyst of left hand; Translations: [Ganglion, left hand] Episodic Other nutritional; endocrine; and metabolic disorders (4 sources) Body mass index 25-29 - overweight; Translations: [Overweight] 08-03-2016 Episodic Prolapse of female genital organs (4 sources) Midline cystocele; Translations: [Cystocele, midline] Onset: 10-23-2008 10-23-2008 Chronic Past or Other Problems Problem Classification Problem Date Documented Da te Episodic/Chronic Conditions associated with dizziness or vertigo (4 sources) Peripheral vertigo; Translations: [Benign paroxysmal vertigo, right ear] Onset: 08-11-2016 08-11-2016 Episodic Other connective tissue disease (4 sources) Impingement syndrome of right shoulder region; Translations: [Impingement syndrome of right shoulder] Onset: 06-21-2013 06-21-2013 Episodic Other screening for suspected conditions (not mental disorders or infectious disease) (4 sources) Raised TSH level; Translations: [Other specified abnormal findings of blood chemistry] Onset: 01-14-2014 01-14-2014 Episodic Residual codes; unclassified (4 sources) Menopause present; Translations: [Asymptomatic menopausal state] Onset: 01-14-2014 01-14-2014 Episodic Results Test Name Value Interpretation Reference Range Facil ity Encounters Encounter Date Encounter Type Care Provider Facility Start: 08-24-2021 End: 08-24-2021 Patient encounter procedure Sammy Trevino MD Work Phone: Orthopaedics Procedures Date Procedure Procedure Detail Performing Clinician Start: 07-31-2021 Radex hand minimum 3 views Rafa Brambila DO Work Phone: Start: 05-11-2019 Colonoscopy Rafa french V, DO Work Phone: Start: 11-18-2015 Mammography Sharon boyle Work Phone: Start: 09-13-2012 Colonoscopy Sharon boyle Work Phone: Plan of Treatment Date Care Activity Detail Author Start: 05-11-2029 Colonoscopy COLONOSCOPY [facility] Start: 05-11-2029 COLORECTAL CANCER SCREENING COLORECTAL CANCER SCREENING [facility] Start: 09-13-2022 Colonoscopy COLONOSCOPY [facility] Start: 09-13-2022 COLORECTAL CANCER SCREENING COLORECTAL CANCER SCREENING [facility] Start: 09-13-2022 Screening for malign ant neoplasm of colon [facility] Start: 07-30-2021 LIPID SCREEN LIPID SCREEN [facility] Start: 04-25-2021 ADVANCE DIRECTIVE DISCUSSION ADVANCE DIRECTIVE DISCUSSION [facility] Start: 12-24-2020 Influenza vaccination INFLUENZA (Sea son Ended) [facility] Start: 07-31-2019 DIABETES SCREEN DIABETES SCREEN [facility] Start: 11-17-2016 Mammography MAMMOGRAM [facility] Start: 10-26-2011 ADVANCE DIRECTIVE DISCUSSION ADVANCE DIRECTIVE DISCUSSION [facility] Start: 04-26-1998 Urine microalbumin profile DTAP,TDAP ,TD (1 - Tdap) [facility] Start: 1996 Screening for malign ant neoplasm of colon [facility] Start: 1996 SHINGRIX VACCINE (1 of 2) SHINGRIX V ACCINE (1 of 2) [facility] Start: 10-26-1991 COLOGUARD (FIT-DNA) COLOGUARD (FIT-D NA) [facility] Start: 10-26-[address] COLONOGRAPHY [facility] Start: 10-26-1991 FECAL OCCULT BLOOD FECAL OCCULT BLOO D [facility] Start: 10-26-1991 SIGMOIDOSCOPY SIGMOIDOSCOPY [facility] Start: 1965 Urine microalbumin profile DTAP,TDAP ,TD (1 - Tdap) [facility] Start: 1958 Adult depression scr eening assessment DEPRESSION SCREENING [facility] Immunizations Immunization Date Immunization Notes Care Provider Fa eugene 04-25-1998 tetanus and diphther ia toxoids, not adsorbed, for adult use Sharon Palmer Work Phone: [facility] Payers Date Payer Category Payer Private Health Insurance [id number] 2011 Medicare [id number] 2011 Medicare [id number] 2011 Medicare MEDICARE MEDICAR E A AND B [id number] 2011-Present [phone] [place] [address] Medicare [id number] 1945 Unknown [id number] Social History Date Type Detail [facility] Start: 2011 Tobacco use and exposure Never used [facility] Start: 2011 End: 08-25-2021 Alcohol intake Current non-drinker of alcohol (finding) [facility] Start: 1945 Sex Assigned At Not on file [facility] Start: 07-21-2021 End: 08-24-2021 Exposure to SARS-CoV-2 (event) Not sure [facility] Clinical Notes 12-14-2012 to 08-24-2021 Sammy Trevino MD - 08/24/2021 2:45 PM EDRT Lili(R) - 07/31/2021 11:30 AM EDTPatient Izabel Brambila V, DO - 07/31/2021 11:14 AM Darcy Johnson Ma - 07/31/2021 10:59 AM EDT Note Date & Type Note Facility 08-24-2021 Note HNO ID: [id number] Author: Sammy Trevino MD Service: ? Author Type: Physician Type: Progress Notes Filed: 08/25/2021 9:45 AM Note Text: Sammy Trevino MD Department of Orthopaedics Orthopaedics [address] [facility] [address] Dept: [phone] Dept August 24, [address] Brambila for an opinion regarding bilateral hand pain. My final recommendations will be communicated back to the requesting physician by way of shared Medical record or letter to requesting physician via [place] mail. CHIEF COMPLAINT: New of the Left Hand and Cyst HPI Patient has had some worsening trouble with both of her hands with just a constant stiffness and achiness certainly worse in the morning. AMB ROOMING INTAKE FLOWSHEET DATA Pain Pain Level: 6 Pain Location: Hand-Left Description: Aching, Tightness, Tingling Duration Amount of Time: 3 Duration Units: Months Frequency: Continuous Intervention/Comfort measure: Heat Comments: No intervention has helped thus far ASSESSMENT: M19.041, M19.042 Primary osteoarthritis of both hands (primary encounter diagnosis) PLAN: Little bit of a difficult scenario with basically globally arthritic changes in the hands. However, she has relatively speaking, rather good range of motion and not any significant pain thankfully. We had a lengthy discussion about potentially surgical indications at some point in time specifically for any one or more particular joints. At this time, it is not necessary or required or indicated. She is going to try a bit of a topical anti-inflammatory and some multimodality treatments. Ms. Kesha Trent was advised as to contrast therapies and/or to take analgesics/anti-inflammatories as needed and all contraindications were reviewed. OBJECTIVE: Ms. Kesha Trent is a pleasant 75 year old in no apparent distress. Gen:There were no vitals taken for this visit. nl development, non obese, no deformities ENT: Normocephalic, normal hearing, moist mucosa CV: Pulses:Radial= 2+ and symmetric, capillary refill < 2 secs, no peripheral edema/varicosities Skin: no rash, bruising or lesions. Good turgor. Psych: cooperative and appropriate, alert and oriented x 3, good mood and affect. Musculoskeletal: Globally in both hands there are some arthritic changes most consistently over the PIP joints but also at the thumb basal joints. However, she has rather good motion and can almost make a composite fist with both hands with certainly some mild limitations. There does not appear to be any 1 specific joint that is particularly worse or more functionally painful or problematic. Imaging: IMPRESSION: Radiographic findings as detailed in report suggest osteoarthritis. Receipt And Report Clerk: JOSELYN ? Transcribe Date/Time: Jul 12:22P Dictated by : LYDIA MO MD This examination was interpreted and the report reviewed and electronically signed by: LYDIA MO MD on Jul 12:27PM ?EST Results-Findings * * *Final Report* * * DATE OF EXAM: Jul 11:29AM ? WRX ? [id number] ?- ?XR HAND 3V PA/LAT/OBL MARYANN ? / PROCEDURE REASON: Ganglion cyst of finger of left hand ?? ? * * * * Physician Interpretation * * * * ?EXAMINATION: ?XR HAND 3V PA/LAT/OBL MARYANN HISTORY: ? Bilateral hand pain and stiffness. ?Ganglion cyst of finger of left hand. TECHNIQUE: ?XR HAND 3V PA/LAT/OBL MARYANN ?? Laterality: ?BILATERAL ?? Number of different views (projections): 3-each ?? M: ?XB_1 COMPARISON: ?Comparison is made to prior hand dated 01/29/2016 RESULT: AP, lateral and oblique views of the bilateral hands show no acute osseous, articular or soft tissue abnormality. There is periarticular osteopenia and degenerative change with asymmetric joint space narrowing and periarticular osteophytosis involving the interphalangeal joints of the first through fifth digits. ?Prominent marginal spurring along the antiradial margin is of the second, third and fourth proximal interphalangeal joints. There is also joint space narrowing, bony eburnation and periarticular osteophytosis of the first metacarpal carpal joints bilaterally, severe on the left. ?There is also moderate narrowing of the triscaphe joint on the right. ?Findings are compatible with osteoarthritis. ?There is no superimposed erosive process. Supporting Subjective Information Below: Past Surgical History: PAST SURGICAL HISTORY Procedure Laterality Date - COLONOSCOPY FLX DX W/COLLJ SPEC WHEN PFRMD 10/22/98 Colonoscopy - COLONOSCOPY FLX DX W/COLLJ SPEC WHEN PFRMD 09/13/12 Colonoscopy-not sure when to repeat - EXC/DSTRJ LINGUAL TONSIL ANY METHOD SPX TONSILLECTOMY - EXTENSIVE FINGER SURGERY 07/04 gangion cyst - LIG/TRNSXJ FLP TUBE ABDL/VAG APPR UNI/BI Tubal ligation - PAST SURGICAL HISTORY OF VAGINAL WALL SEPTUM - RMVL SKIN LESION SNGL 2005 Medications: Current Outpatient Medications (more content not included)... [facility] 08-24-2021 History of Present illness Narrative Sammy Trevino MD Department of Orthopaedics Orthopaedics [address] [facility] [address] Dept: [phone] Dept August 24, [address] Brambila for an opinion regarding bilateral hand pain. My final recommendations will be communicated back to the requesting physician by way of shared Medical record or letter to requesting physician via [place] mail. CHIEF COMPLAINT: New of the Left Hand and Cyst HPI Patient has had some worsening trouble with both of her hands with just a constant stiffness and achiness certainly worse in the morning. AMB ROOMING INTAKE FLOWSHEET DATA Pain Pain Level: 6 Pain Location: Hand-Left Description: Aching, Tightness, Tingling Duration Amount of Time: 3 Duration Units: Months Frequency: Continuous Intervention/Comfort measure: Heat Comments: No intervention has helped thus far ASSESSMENT: M19.041, M19.042 Primary osteoarthritis of both hands (primary encounter diagnosis) PLAN: Little bit of a difficult scenario with basically globally arthritic changes in the hands. However, she has relatively speaking, rather good range of motion and not any significant pain thankfully. We had a lengthy discussion about potentially surgical indications at some point in time specifically for any one or more particular joints. At this time, it is not necessary or required or indicated. She is going to try a bit of a topical anti-inflammatory and some multimodality treatments. Ms. Kesha Trent was advised as to contrast therapies and/or to take analgesics/anti-inflammatories as needed and all contraindications were reviewed. OBJECTIVE: Ms. Kesha Trent is a pleasant 75 year old in no apparent distress. Gen:There were no vitals taken for this visit. nl development, non obese, no deformities ENT: Normocephalic, normal hearing, moist mucosa CV: Pulses:Radial= 2+ and symmetric, capillary refill < 2 secs, no peripheral edema/varicosities Skin: no rash, bruising or lesions. Good turgor. Psych: cooperative and appropriate, alert and oriented x 3, good mood and affect. Musculoskeletal: Globally in both hands there are some arthritic changes most consistently over the PIP joints but also at the thumb basal joints. However, she has rather good motion and can almost make a composite fist with both hands with certainly some mild limitations. There does not appear to be any 1 specific joint that is particularly worse or more functionally painful or problematic. Imaging: IMPRESSION: Radiographic findings as detailed in report suggest osteoarthritis. Receipt And Report Clerk: JOSELYN Transcribe Date/Time: Jul 31 2021 12:22P Dictated by : LYDIA MO MD This examination was interpreted and the report reviewed and electronically signed by: LYDIA MO MD on Jul 31 2021 12:27PM EST Results-Findings * * *Final Report* * * DATE OF EXAM: Jul 31 2021 11:29AM WRX [id number] - XR HAND 3V PA/LAT/OBL MARYANN / PROCEDURE REASON: Ganglion cyst of finger of left hand * * * * Physician Interpretation * * * * EXAMINATION: XR HAND 3V PA/LAT/OBL MARYANN HISTORY: Bilateral hand pain and stiffness. Ganglion cyst of finger of left hand. TECHNIQUE: XR HAND 3V PA/LAT/OBL MARYANN Laterality: BILATERAL Number of different views (projections): 3-each M: XB_1 COMPARISON: Comparison is made to prior hand dated 01/29/2016 RESULT: AP, lateral and oblique views of the bilateral hands show no acute osseous, articular or soft tissue abnormality. There is periarticular osteopenia and degenerative change with asymmetric joint space narrowing and periarticular osteophytosis involving the interphalangeal joints of the first through fifth digits. Prominent marginal spurring along the antiradial margin is of the second, third and fourth proximal interphalangeal joints. There is also joint space narrowing, bony eburnation and periarticular osteophytosis of the first metacarpal carpal joints bilaterally, severe on the left. There is also moderate narrowing of the triscaphe joint on the right. Findings are compatible with osteoarthritis. There is no superimposed erosive process. Supporting Subjective Information Below: Past Surgical History: PAST SURGICAL HISTORY Procedure Laterality Date COLONOSCOPY FLX DX W/COLLJ SPEC WHEN PFRMD 10/22/98 Colonoscopy COLONOSCOPY FLX DX W/COLLJ SPEC WHEN PFRMD 09/13/12 Colonoscopy-not sure when to repeat EXC/DSTRJ LINGUAL TONSIL ANY METHOD SPX TONSILLECTOMY EXTENSIVE FINGER SURGERY 07/04 gangion cyst LIG/TRNSXJ FLP TUBE ABDL/VAG APPR UNI/BI Tubal ligation PAST SURGICAL HISTORY OF VAGINAL WALL SEPTUM RMVL SKIN LESION SNGL 2005 Medications: Current Outpatient Medications Medication Sig atorvastatin (LIPITOR) 40 mg tablet Take 40 mg by mouth daily at bedtime. aspirin, enteric coated (ASPIRIN, ENTERIC COATED) 81 mg EC tablet Take 81 mg by mouth once daily. acetaminophen (TYLENOL EXTRA STRENGTH) 500 mg tablet Take 2 tablets by mouth every 6 hours as needed for Pain. ca carbonate/vitamin d3/vit k(VIACTIV 500 MG-100 UNIT-40 MCG CHEWABLE TAB) Chew one(1) tablet daily. CENTRUM SILVER TAB Take one(1) tablet daily. meclizine (ANTIVERT) 12.5 mg tab Take 1 tablet by mouth every 6 hours as needed (dizziness). (Patient not taking: Reported on 07/31/2021 ) No current facility-administered medications for this visit. Allergies: Bextra [Valdecoxib], Celebrex [Celecoxib], and Lodine [Etodolac] ROS: General (negative for fatigue, malaise, weight loss/gain) HEENT (negative for headache, earache, recent vision changes, sinus pain, sore throat) Respiratory (no recent shortness of breath, hemoptysis) CV (negative for chest tightness, palpitations) Musculoskeletal (see HPI) Psych (no depression, anxiety) Sammy Trevino MD documented in this encounter [facility] 07-31-2021 Note HNO ID: [id number] Author: RT Yani(R) Service: ? Author Type: Technologist Type: Progress Notes Filed: 07/31/2021 11:30 AM Note Text: Radiology Service Progress Note PATIENT NAME: Kesha Trent DATE OF SERVICE: July 31, 2021 TIME: 11:29 AM PATIENT IDENTITY VERIFICATION COMPLETED USING TWO (2) IDENTIFIERS: Name and Date of confirmed by patient verbally. FALL SCREENING: Has the patient had 2 falls in the last year or 1 fall with injury or currently using an Ambulatory Assistive Device (Walker, Cane, Wheelchair, Crutches, etc.)? No PATIENT GENDER DATA: Female. status: : No status: NO. PATIENT RELEVANT IMPLANT DATA REVIEWED: Not Applicable RADIOLOGY DEPARTMENT: General X-ray: Exam(s) Completed: Upper Extremity X-Ray(s): Hand, bilateral PERIPHERAL IV DATA: Not applicable SIGNED BY: RT Yani(R) July 31, 2021 11:29 AM [facility] 07-31-2021 Note HNO ID: [id number] Author: Rafa Brambila V, DO Service: ? Author Type: Physician Type: Progress Notes Filed: 07/31/2021 11:17 AM Note Text: Kesha Trent presents with pain and swelling in the left middle finger. She had a ganglion cyst removed from the opposite side of the left middle finger in 2011, states that this seems to be very similar in appearance and presentation to the ganglion cyst. She has swelling and discomfort over the side of the finger at the proximal interphalangeal joint. She states that it was worse a few weeks ago but it seems to have gone down in size. 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 difficile diarrhea 12/14/2012 - ECZEMATOUS DERMATITIS NOS 12/16/2008 - Esophageal reflux Gastroesophageal reflux - HALLUX VALGUS 08/16/2005 - Irritable bowel syndrome 01/25/2005 - Osteoarthrosis, unspecified whether generalized or localized, other specified sites 01/25/2005 - Other and unspecified hyperlipidemia 01/25/2005 - Other bursitis disorders knees - Other seborrheic keratosis 12/16/2008 - Overweight (BMI 25.0-29.9) - SKIN TAG PAPILLOMA///SKIN HYPERTRO/ATROPH NOS 12/16/2008 PAST SURGICAL HISTORY Procedure Laterality Date - COLONOSCOPY FLX DX W/COLLJ SPEC WHEN PFRMD 10/22/98 Colonoscopy - COLONOSCOPY FLX DX W/COLLJ SPEC WHEN PFRMD 09/13/12 Colonoscopy-not sure when to repeat - EXC/DSTRJ LINGUAL TONSIL ANY METHOD SPX TONSILLECTOMY - EXTENSIVE FINGER SURGERY 07/04 gangion cyst - LIG/TRNSXJ FLP TUBE ABDL/VAG APPR UNI/BI Tubal ligation - PAST SURGICAL HISTORY OF VAGINAL WALL SEPTUM - RMVL SKIN LESION SNGL 2005 Current Outpatient Medications on File Prior to Visit Medication Sig - atorvastatin (LIPITOR) 40 mg tablet Take 40 mg by mouth daily at bedtime. - aspirin, enteric coated (ASPIRIN, ENTERIC COATED) 81 mg EC tablet Take 81 mg by mouth once daily. - ca carbonate/vitamin d3/vit k(VIACTIV 500 MG-100 UNIT-40 MCG CHEWABLE TAB) Chew one(1) tablet daily. - CENTRUM SILVER TAB Take one(1) tablet daily. - meclizine (ANTIVERT) 12.5 mg tab Take 1 tablet by mouth every 6 hours as needed (dizziness). (Patient not taking: Reported on 07/31/2021 ) - acetaminophen (TYLENOL EXTRA STRENGTH) 500 mg tablet Take 2 tablets by mouth every 6 hours as needed for Pain. No current facility-administered medications on file prior to visit. Physical Exam Findings: General exam: Normal, Extremeties bilateral hand shows upper Jennifer at the proximal and distal interphalangeal joints of multiple fingers. Specific evaluation of the left middle finger shows tender growth along the lateral aspect of the finger at the PIP joint that appears consistent with a ganglion cyst. Assessment: Ganglion cyst left middle finger Plan: 1. Patient Instructions: Discussed options for treatment including aspiration and injection, watchful waiting, or surgical referral. Patient states that she would like to have a surgical referral back to Dr. Trevino who excised the ganglion cyst in 2011. 2. X-rays were obtained of the hands bilaterally Rafa Brambila DO [facility] 07-31-2021 Note HNO ID: [id number] Author: Fe Johnson Ma Service: ? Author Type: ? Type: Progress Notes Filed: 07/31/2021 11:17 AM Note Text: AMB ROOMING INTAKE FLOWSHEET DATA Risk Screening Do you have concerns about personal safety or safety in the home?: No [facility] 07-31-2021 History of Present illness Narrative Radiology Service Progress Note PATIENT NAME: Kesha Trent DATE OF SERVICE: July 31, 2021 TIME: 11:29 AM PATIENT IDENTITY VERIFICATION COMPLETED USING TWO (2) IDENTIFIERS: Name and Date of confirmed by patient verbally. FALL SCREENING: Has the patient had 2 falls in the last year or 1 fall with injury or currently using an Ambulatory Assistive Device (Walker, Cane, Wheelchair, Crutches, etc.)? No PATIENT GENDER DATA: Female. status: : No status: NO. PATIENT RELEVANT IMPLANT DATA REVIEWED: Not Applicable RADIOLOGY DEPARTMENT: General X-ray: Exam(s) Completed: Upper Extremity X-Ray(s): Hand, bilateral PERIPHERAL IV DATA: Not applicable SIGNED BY: RT Yani(R) July 31, 2021 11:29 AM documented in this encounter [facility] 07-31-2021 Instructions Rafa Brambila V, DO - 07/31/2021 11:17 AM EDT Thank you for choosing the [facility] for your acute care needs. [facility] treats minor infections, rashes and injuries. It is our mission for our patients to be healthy. A primary care relationship with the physician allows for continuity of care, counseling, and maintenance of preventive health care needs. [facility] does not replace the relationship or need for a primary care physician. For information about establishing with a primary care physician or booking an appointment, please call [phone] or speak with any Patient Housing Inspector. Hours: Tuesday through Tuesday 7:30 am to 7:00 pm. Tuesday and Tuesday: 8:00 am to 2:30 pm. documented in this encounter [facility] 07-31-2021 History of Present illness Narrative Kesha Trent presents with pain and swelling in the left middle finger. She had a ganglion cyst removed from the opposite side of the left middle finger in 2011, states that this seems to be very similar in appearance and presentation to the ganglion cyst. She has swelling and discomfort over the side of the finger at the proximal interphalangeal joint. She states that it was worse a few weeks ago but it seems to have gone down in size. 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 difficile diarrhea 12/14/2012 ECZEMATOUS DERMATITIS NOS 12/16/2008 Esophageal reflux Gastroesophageal reflux HALLUX VALGUS 08/16/2005 Irritable bowel syndrome 01/25/2005 Osteoarthrosis, unspecified whether generalized or localized, other specified sites 01/25/2005 Other and unspecified hyperlipidemia 01/25/2005 Other bursitis disorders knees Other seborrheic keratosis 12/16/2008 Overweight (BMI 25.0-29.9) SKIN TAG PAPILLOMA///SKIN HYPERTRO/ATROPH NOS 12/16/2008 PAST SURGICAL HISTORY Procedure Laterality Date COLONOSCOPY FLX DX W/COLLJ SPEC WHEN PFRMD 10/22/98 Colonoscopy COLONOSCOPY FLX DX W/COLLJ SPEC WHEN PFRMD 09/13/12 Colonoscopy-not sure when to repeat EXC/DSTRJ LINGUAL TONSIL ANY METHOD SPX TONSILLECTOMY EXTENSIVE FINGER SURGERY 07/04 gangion cyst LIG/TRNSXJ FLP TUBE ABDL/VAG APPR UNI/BI Tubal ligation PAST SURGICAL HISTORY OF VAGINAL WALL SEPTUM RMVL SKIN LESION SNGL 2005 Current Outpatient Medications on File Prior to Visit Medication Sig atorvastatin (LIPITOR) 40 mg tablet Take 40 mg by mouth daily at bedtime. aspirin, enteric coated (ASPIRIN, ENTERIC COATED) 81 mg EC tablet Take 81 mg by mouth once daily. ca carbonate/vitamin d3/vit k(VIACTIV 500 MG-100 UNIT-40 MCG CHEWABLE TAB) Chew one(1) tablet daily. CENTRUM SILVER TAB Take one(1) tablet daily. meclizine (ANTIVERT) 12.5 mg tab Take 1 tablet by mouth every 6 hours as needed (dizziness). (Patient not taking: Reported on 07/31/2021 ) acetaminophen (TYLENOL EXTRA STRENGTH) 500 mg tablet Take 2 tablets by mouth every 6 hours as needed for Pain. No current facility-administered medications on file prior to visit. Physical Exam Findings: General exam: Normal, Extremeties bilateral hand shows upper Jennifer at the proximal and distal interphalangeal joints of multiple fingers. Specific evaluation of the left middle finger shows tender growth along the lateral aspect of the finger at the PIP joint that appears consistent with a ganglion cyst. Assessment: Ganglion cyst left middle finger Plan: 1. Patient Instructions: Discussed options for treatment including aspiration and injection, watchful waiting, or surgical referral. Patient states that she would like to have a surgical referral back to Dr. Trevino who excised the ganglion cyst in 2011. 2. X-rays were obtained of the hands bilaterally Rafa Brambila DO AMB ROOMING INTAKE FLOWSHEET DATA Risk Screening Do you have concerns about personal safety or safety in the home?: No documented in this encounter [facility] documented as of this encounter (statuses as of 08/13/2020) [facility] History of Past illness Narrative* Problem Noted Date Resolved Date C. difficile diarrhea 12/14/2012 01/14/2014 Digital mucous cyst 06/24/2011 08/10/2011 Fibromyalgia 02/05/2009 08/03/2016 Symptoms involving skin and other integumentary tissue 02/19/2005 04/14/2005 documented as of this encounter (statuses as of 07/31/2021) [facility] History of Past illness Narrative* Problem Noted Date Resolved Date C. difficile diarrhea 12/14/2012 01/14/2014 Digital mucous cyst 06/24/2011 08/10/2011 Fibromyalgia 02/05/2009 08/03/2016 Symptoms involving skin and other integumentary tissue 02/19/2005 04/14/2005 documented as of this encounter (statuses as of 08/01/2021) [facility] History of Past illness Narrative* Problem Noted Date Resolved Date C. difficile diarrhea 12/14/2012 01/14/2014 Digital mucous cyst 06/24/2011 08/10/2011 Fibromyalgia 02/05/2009 08/03/2016 Symptoms involving skin and other integumentary tissue 02/19/2005 04/14/2005 documented as of this encounter (statuses as of 08/25/2021) [facility] Ganglion cyst of finger of left hand- Primary [facility] Diagnosis Ganglion cyst of finger of left hand [facility] Diagnosis Primary osteoarthritis of both hands- Primary documented in this encounter [facility] for referral (narrative)* Diagnostic Procedure Only (Routine) - Closed Specialty Diagnoses / Procedures Referred By Nancy t Referred To Contact XR IMAGING Diagnoses Ganglion cyst of finger of left hand Procedures XR HAND GENERAL 3V PA/LAT/OBL BILATERAL RADEX HAND MINIMUM 3 VIEWS Rafa Brambila V, DO [address] [place] [address] Xr Imaging Referral ID Status Reason Start Date Expiration Date V isits Requested Visits Authorized [id number] Closed Auto-Generate d Referral 07/31/2021 08/30/2022 1 1 [facility] for referral (narrative)* Diagnostic Procedure Only (Routine) - Closed Specialty Diagnoses / Procedures Referred By Contac t Referred To Contact XR IMAGING Diagnoses Ganglion cyst of finger of left hand Procedures XR HAND GENERAL 3V PA/LAT/OBL BILATERAL RADEX HAND MINIMUM 3 VIEWS Rafa Brambila V, DO [address] [place] [address] Xr Imaging Referral ID Status Reason Start Date Expiration Date V isits Requested Visits Authorized [id number] Closed Auto-Generate d Referral 07/31/2021 08/30/2022 1 1 [facility] for visit Narrative* Diagnostic Procedure Only (Routine) - Closed Specialty Diagnoses / Procedures Referred By Contac t Referred To Contact XR IMAGING Diagnoses Ganglion cyst of finger of left hand Procedures XR HAND GENERAL 3V PA/LAT/OBL BILATERAL RADEX HAND MINIMUM 3 VIEWS Rafa Brambila V DO [address] [place] [address] Xr Imaging Referral ID Status Reason Start Date Expiration Date V isits Requested Visits Authorized [id number] Closed Auto-Generate d Referral 07/31/2021 08/30/2022 1 1 [facility] Summary Purpose Family History No Family History Records FoundNo Family History Records Found Advance Directives No Advanced Directives Records FoundNo Advanced Directives Records Found Additional Source Comments Source Comments (unrecognize d section and content) In the event this informatio n is protected by the Federal Confidentiality of Alcohol and Drug Abuse Patient Records regulations: The Federal rules restrict any use of the information to criminally investigate or prosecute any alcohol or drug abuse patient.[facility] event this information is protected by the Federal Confidentiality of Alcohol and Drug Abuse Patient Records regulations: The Federal rules restrict any use of the information to criminally investigate or prosecute any alcohol or drug abuse patient.[facility] the event this information is protected by the Federal Confidentiality of Alcohol and Drug Abuse Patient Records regulations: The Federal rules restrict any use of the information to criminally investigate or prosecute any alcohol or drug abuse patient.[facility] the event this information is protected by the Federal Confidentiality of Alcohol and Drug Abuse Patient Records regulations: The Federal rules restrict any use of the information to criminally investigate or prosecute any alcohol or drug abuse patient.[facility] INFORMATION SOURCE (unrecogn ized section and content) DATE CREATED AUTHOR AUTHOR'S ORGANIZ ATION 08/26/2021 [facility] Reason for Visit (unrecogniz ed section and content) Reason Comments Cyst New Care Teams (unrecognized sec tion and content) Facing Baster Jumpbasting Relationship Specialty Start Date End Date Kyra Kelly MD [address] [place] [address] PCP - General Internal Medicine 07/22/21 Facing Baster Jumpbasting Relationship Specialty Start Date End Date Kyra Kelly MD [address] [place] [address] PCP - General Internal Medicine 07/22/21 FOR RECORDS PERTAINING TO PATIENTS WHO ARE OR HAVE BEEN ENROLLED IN A CHEMICAL DEPENDENCY/SUBSTANCEABUSE PROGRAM, SOME INFORMATION MAY BE OMITTED. This clinical summary was aggregated from multiple sources. Caution should be exercised in using it in the provision of clinical care. This summary normalizes information from multiple sources, and as a consequence, information in this document may materially change the coding, format and clinical context of patient data. In addition, data may be omitted in some cases. CLINICAL DECISIONS SHOULD BE BASED ON THE PRIMARY CLINICAL RECORDS. [employer] provides no warranty or guarantee of the accuracy or completeness of information in this document.
== END | disposition home or self-care (01) ==
LOC: RAD 15:08
PROVIDERS: PCP Internal Medicine; Referring Provider Internal Medicine; Visit Provider Internal Medicine
DX: M25.551 Pain in right hip (principal)
CPT/HCPCS: 73502

== ENCOUNTER → 2023-05-05 | Outpatient (CLI) | payer MEDICARE, OTHER, SELFPAY ==
--- OUTSIDE RECORDS SUMMARY | 2023-05-05 09:18 | XMS RPT_ITS | CCD ---
Author Name Unknown Address [address] [place] [address] Organization [facility] Care Team Providers Care Unarmed Security Guard Name Role Phone Sharon Palmer Primary Care Provider Bautista Bland) Primary Care Provide r JENS PERSAUD-CHI Referring Unavailable TOYIN MULLER Attending Unavailable KYRA KELLY Primary Care Unavailable Kyra Kelly MD Primary Care Provider Allergies Allergy Classification Reported Allergen(s) Allergy Type Date of Onset Reaction(s) Facility NSAIDs (2 sources) celecoxib Drug Allergy 01-25-2005 Rash, Itching [facility] Work Phone: valdecoxib (1 source) valdecoxib Drug Allergy 01-25-2005 Rash [facility] Work Phone: (3 sources) celecoxib Drug Allergy 01-25-2005 Rash [facility] Work Phone: (3 sources) Etodolac Drug Allergy 01-25-2005 Itching [facility] Work Phone: (3 sources) valdecoxib Drug Allergy 01-25-2005 Rash [facility] Work Phone: Medications Completed/Discontinued Medications Medication Drug [...] Activity Detail Author Start: 05-11-2029 Colonoscopy COLONOSCOPY [facility] Start: 05-11-2029 COLORECTAL CANCER SCREENING COLORECTAL CANCER SCREENING [facility] Start: 09-13-2022 Colonoscopy COLONOSCOPY [facility] Start: 09-13-2022 COLORECTAL CANCER SCREENING COLORECTAL CANCER SCREENING [facility] Start: 09-13-2022 Screening for malign ant neoplasm of colon [facility] Start: 07-30-2021 LIPID SCREEN LIPID SCREEN [facility] Start: 04-25-2021 ADVANCE DIRECTIVE DISCUSSION ADVANCE DIRECTIVE DISCUSSION [facility] Start: 12-24-2020 Influenza vaccination INFLUENZA (Sea son Ended) [facility] Start: 07-31-2019 DIABETES SCREEN DIABETES SCREEN [facility] Start: 11-17-2016 Mammography MAMMOGRAM [facility] Start: 10-26-2011 ADVANCE DIRECTIVE DISCUSSION ADVANCE DIRECTIVE DISCUSSION [facility] Start: 04-26-1998 Urine microalbumin profile DTAP,TDAP ,TD (1 - Tdap) [facility] Start: 1996 Screening for malign ant neoplasm of colon [facility] Start: 1996 SHINGRIX VACCINE (1 of 2) SHINGRIX V ACCINE (1 of 2) [facility] Start: 10-26-1991 COLOGUARD (FIT-DNA) COLOGUARD (FIT-D NA) [facility] Start: 10-26-[address] COLONOGRAPHY [facility] Start: 10-26-1991 FECAL OCCULT BLOOD FECAL OCCULT BLOO D [facility] Start: 10-26-1991 SIGMOIDOSCOPY SIGMO[facility]OSCOPY [facility] Start: 1965 Urine microalbumin profile DTAP,TDAP ,TD (1 - Tdap) [facility] Start: 1958 Adult depression scr eening assessment DEPRESSION SCREENING [facility] Immunizations Immunization Date Immunization Notes Care Provider Fa eugene 04-25-1998 tetanus and diphther ia toxoids, not adsorbed, for adult use Sharon Palmer Work Phone: [facility] Payers Date Payer Category Payer Private Health Insurance [id number] 2011 Medicare [id number] 2011 Medicare [id number] 2011 Medicare MEDICARE MEDICAR E A AND B [id number] 2011-Present [phone] [place] [address] Medicare [id number] 1945 Unknown [id number] Social History Date Type Detail Facility [facility]: 2011 [facility] Start: 2011 Tobacco use and exposure Never used [facility] Start: 2011 End: 08-25-2021 Alcohol intake Current non-drinker of alcohol (finding) [facility] Start: 1945 Sex Assigned At Not on file [facility] Start: 07-21-2021 End: 08-24-2021 Exposure to SARS-CoV-2 (event) Not sure [facility] Clinical Notes 12-14-2012 to 08-24-2021 Sammy Trevino MD - 08/24/2021 2:45 PM EDRT Lili(R) - 07/31/2021 11:30 AM EDTPatient Izabel Brambila V, DO - 07/31/2021 11:14 AM Darcy Johnson Ma - 07/31/2021 10:59 AM EDT Note Date & Type Note Facility 08-24-2021 Note HNO ID: [id number] Author: Sammy Trevino MD Service: ? Author Type: Physician Type: Progress Notes Filed: 08/25/2021 9:45 AM Note Text: Sammy Trevino MD Department of Orthopaedics Orthopaedics [address] [facility] [address] Dept: [phone] Dept August 24, 2021 Consultation requested by [...] findings as detailed in report suggest osteoarthritis. Aircraft Maintenance Technician: JOSELYN ? Transcribe Date/Time: Jul 12:22P Dictated [...] Current Outpatient Medications (more content not included)... [facility] 08-24-2021 History of Present illness Narrative Sammy Trevino MD Department of Orthopaedics Orthopaedics [address] [facility] [address] Dept: [phone] Dept August 24, 2021 Consultation requested by [...] findings as detailed in report suggest osteoarthritis. Aircraft Maintenance Technician: JOSELYN Transcribe Date/Time: Jul 31 2021 12:22P [...] Sammy Trevino MD documented in this encounter [facility] 07-31-2021 Note HNO ID: [id number] Author: RT Yani(R) Service: ? Author Type: [...] RT Yani(R) July 31, 2021 11:29 AM [facility] 07-31-2021 Note HNO ID: [id number] Author: Rafa Brambila V, DO Service: ? [...] of the hands bilaterally Rafa Brambila DO [facility] 07-31-2021 Note HNO ID: [id number] Author: Fe Johnson Ma Service: ? Author Type: ? Type: Progress Notes Filed: 07/31/2021 11:17 AM Note Text: AMB ROOMING INTAKE FLOWSHEET DATA Risk Screening Do you have concerns about personal safety or safety in the home?: No [facility] 07-31-2021 History of Present illness Narrative [...] 2021 11:29 AM documented in this encounter [facility] 07-31-2021 Instructions Rafa Brambila V, DO - 07/31/2021 11:17 AM EDT Thank you for choosing the [facility] for your acute care [...] physician or booking an appointment, please call [phone] or speak with any Patient Substitute School Nurse. Hours: Tuesday through Tuesday 7:30 am to 7:00 pm. Tuesday and Tuesday: 8:00 am to 2:30 pm. documented in this encounter [facility] 07-31-2021 History of Present illness Narrative Kesha [...] the home?: No documented in this encounter [facility] documented as of this encounter (statuses as of 08/13/2020) [facility] History of Past illness Narrative* Problem Noted Date Resolved Date C. difficile diarrhea 12/14/2012 01/14/2014 Digital mucous cyst 06/24/2011 08/10/2011 Fibromyalgia 02/05/2009 08/03/2016 Symptoms involving skin and other integumentary tissue 02/19/2005 04/14/2005 documented as of this encounter (statuses as of 07/31/2021) [facility] History of Past illness Narrative* Problem Noted Date Resolved Date C. difficile diarrhea 12/14/2012 01/14/2014 Digital mucous cyst 06/24/2011 08/10/2011 Fibromyalgia 02/05/2009 08/03/2016 Symptoms involving skin and other integumentary tissue 02/19/2005 04/14/2005 documented as of this encounter (statuses as of 08/01/2021) [facility] History of Past illness Narrative* Problem Noted Date Resolved Date C. difficile diarrhea 12/14/2012 01/14/2014 Digital mucous cyst 06/24/2011 08/10/2011 Fibromyalgia 02/05/2009 08/03/2016 Symptoms involving skin and other integumentary tissue 02/19/2005 04/14/2005 documented as of this encounter (statuses as of 08/25/2021) [facility] Diagnosis Ganglion cyst of finger of left hand- Primary [facility] Diagnosis Ganglion cyst of finger of left hand [facility]* Diagnosis Primary osteoarthritis of both hands- Primary documented in this encounter [facility] for referral (narrative)* Diagnostic Procedure Only (Routine) - Closed Specialty Diagnoses / Procedures Referred By Nancy t Referred To Contact XR IMAGING Diagnoses Ganglion cyst of finger of left hand Procedures XR HAND GENERAL 3V PA/LAT/OBL BILATERAL RADEX HAND MINIMUM 3 VIEWS Rafa Brambila V, DO [address] [place] [address] Xr Imaging Referral ID Status Reason Start Date Expiration Date V isits Requested Visits Authorized [id number] Closed Auto-Generate d Referral 07/31/2021 08/30/2022 1 1 [facility] for referral (narrative)* Diagnostic Procedure Only (Routine) - Closed Specialty Diagnoses / Procedures Referred By Contac t Referred To Contact XR IMAGING Diagnoses Ganglion cyst of finger of left hand Procedures XR HAND GENERAL 3V PA/LAT/OBL BILATERAL RADEX HAND MINIMUM 3 VIEWS Rafa Brambila V, DO [address] [place] [address] Xr Imaging Referral ID Status Reason Start Date Expiration Date V isits Requested Visits Authorized [id number] Closed Auto-Generate d Referral 07/31/2021 08/30/2022 1 1 [facility] for visit Narrative* Diagnostic Procedure Only (Routine) - Closed Specialty Diagnoses / Procedures Referred By Contac t Referred To Contact XR IMAGING Diagnoses Ganglion cyst of finger of left hand Procedures XR HAND GENERAL 3V PA/LAT/OBL BILATERAL RADEX HAND MINIMUM 3 VIEWS Rafa Brambila V DO [address] [place] [address] Xr Imaging Referral ID Status Reason Start Date Expiration Date V isits Requested Visits Authorized [id number] Closed Auto-Generate d Referral 07/31/2021 08/30/2022 1 1 [facility] Summary Purpose Family History No Family History [...] or prosecute any alcohol or drug abuse patient.[facility] the event this information is protected by the Federal Confidentiality of Alcohol and Drug Abuse Patient Records regulations: The Federal rules restrict any use of the information to criminally investigate or prosecute any alcohol or drug abuse patient.[facility] the event this information is protected by the Federal Confidentiality of Alcohol and Drug Abuse Patient Records regulations: The Federal rules restrict any use of the information to criminally investigate or prosecute any alcohol or drug abuse patient.[facility] the event this information is protected by the Federal Confidentiality of Alcohol and Drug Abuse Patient Records regulations: The Federal rules restrict any use of the information to criminally investigate or prosecute any alcohol or drug abuse patient.[facility] INFORMATION SOURCE (unrecogn ized section and content) DATE CREATED AUTHOR AUTHOR'S ORGANIZ ATION 08/26/2021 [facility] Reason for Visit (unrecogniz ed section and content) Reason Comments Cyst New Care Teams (unrecognized sec tion and content) Unarmed Security Guard Relationship Specialty Start Date End Date Kyra Kelly MD [address] [place] [address] PCP - General Internal Medicine 07/22/21 Unarmed Security Guard Relationship Specialty Start Date End Date Kyra Kelly MD [address] [place] [address] PCP - General Internal Medicine 07/22/21 FOR [...] BE BASED ON THE PRIMARY CLINICAL RECORDS. [employer] provides no warranty or guarantee of the accuracy or completeness of information in this document.
[2023-05-05 09:28] LABS: Absolute Lymphocyte Count 1.82 X10^3/uL (0.83-4.51); Absolute Neutrophil Count 3.3 X10^3/uL (2.0-7.7); Basophil# 0.04 X10^3/uL; Basophil% 0.7 % (0-1); Eosinophil# 0.11 X10^3/uL; Eosinophils% 1.9 % (0-5); Hematocrit 43.5 % (37-47); Lymphocyte # 1.82 X10^3/ul (0.83-4.51); Lymphocyte % 31.7 % (19-41); Mean Corp Hgb Conc 32.2 g/dL (32-36); Mean Corpuscular Hgb 32.4 pg (27.0-32.0); Mean Corpuscular Volume 100.7 fL (81-99); Mean Platelet Vol. 9.9 fl (6.2-12.0); Monocyte# 0.46 X10^3/uL; NRBC Flagged by Analyzer 0 % (0-5); Neutrophil % 57.4 % (47-70); Platelet Count 342 K/mm3 (150-450); RBC Distribution Width CV 12.9 % (11.6-14.6); RBC Distribution Width SD 48.4 fl (35.1-43.9); Red Blood Count 4.32 M/mm3 (4.2-5.4); White Blood Count 5.8 K/mm3 (4.4-11.0)
[2023-05-05 10:22] LABS: AST(SGOT) 20 U/L (15-37); Alanine Aminotransfer ALT/SGPT 32 U/L (13-56); Albumin, Serum 3.9 g/dL (3.2-5.0); Alkaline Phosphatase 45 U/L (45-117); Anion Gap 5 (5-15); BUN 15 mg/dL (7-18); BUN/Creat Ratio 14.6 RATIO (10-20); Calcium,Total 9.8 mg/dL (8.5-10.1); Chloride 107 mmol/L (98-107); Cholesterol 134 mg/dL (200); Creatinine, Serum 1.03 mg/dL (0.55-1.02); EST Glomerular Filtration Rate 55 mL/min (>60); Est Glom Filt Rate - Afr Amer 67 mL/min (>60); Free T3 2.8 pg/mL (2.18-3.98); Glucose 97 mg/dL (74-106); High Density Lipoprotein 52 mg/dL; Magnesium 2.3 mg/dL (1.6-2.6); Potassium 4.1 mmol/L (3.5-5.1); Protein, Total 7.9 g/dL (6.4-8.2); Sodium Level 141 mmol/L (136-145); T4 Free Direct 0.87 ng/dL (0.76-1.46); Thyroid Stim Hormone (TSH) 4.37 uIU/mL (0.358-3.74); Triglycerides 143 mg/dL; Very Low Density Lipoprotein 29 mg/dL (5-40)
[2023-05-05 10:57] LABS: Vitamin B12 302 pg/mL (211-911); Vitamin D,25 Hydroxy 74.5 ng/mL
== END | disposition home or self-care (01) ==
PROVIDERS: PCP Internal Medicine; Referring Provider Internal Medicine; Visit Provider Internal Medicine
DX: M25.551 Pain in right hip (principal); E78.5 Hyperlipidemia, unspecified; E55.9 Vitamin D deficiency, unspecified; R53.83 Other fatigue; E53.8 Deficiency of other specified B group vitamins; R79.89 Other specified abnormal findings of blood chemistry; R41.82 Altered mental status, unspecified; Z13.220 Encounter for screening for lipoid disorders; G45.9 Transient cerebral ischemic attack, unspecified
CPT/HCPCS: 36415; 80053; 80061; 82306; 82607; 83735; 84439; 84443; 84481; 85025

== ENCOUNTER 2023-06-28 14:00 | Outpatient (RCR) | payer MEDICARE, OTHER, SELFPAY ==
--- NOTE | 2023-05-09 15:02 | HP.PTEVAL ---
Patient's Visit Information Visit Information Visit Information: MORRIS OWEN is a 77 year old F referred to Physical Therapy by Dr. Lorelei Kelly MD with a diagnosis of R hip pain. Date of Evaluation: 05/09/23 Physical Therapist: Randy Agustin, ANTHONYT, OCS, CSCS Visit Plan Frequency: 2x /Week Duration: 4-6 Weeks Plan: 2x/week fro 3-6 weeks pool based exercises for HS and quad stretching, R hip and knee ROM and strengthening of B hips, knees, core, posture and to I HEP. Subjective Subjective: Threw my R hip out working in [employer] at end of January. Was raking leaves and hurt the next day. Did not have hip problems prior. Raked the whole yard and then hurt when she went to bed. Pain was back of hip and into spine. Could not get comfortable. passed out in bed. Could walk the next morning slowly. Typically walks at [place] and did two llaps that day. Went to chiropractor 2-3x/week, was helping at first but lifted R LE to put in car and it hurt again. Cold weather has made it worse. Sitting in chair last couple days due to cold weather. Pain is mostly in groin and r posterior hip and into LB. In the last week mostly 5/10 Noticeable sitting. Not sure what makes it worse. Wallking and work around house is worse, cannot vaccuum. Walks slowly. lB is chronic and minor. This is different. sleep is OK if gets comfortable but not on R side. Not employed. No regular ex except mile walk. 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 Basic ADLs are oK Pain R hip: Pain Intensity (Out of 10): 1 Pain Intensity Range: 0 and 5 Objective Objective: R hip antalgia especially getting up from the chair and antalgic in gait. Transfers are I and painful. Tender in priiformis area R, R hip AROM flexion 100 degrees, ER 50 and IR 15, some pain end range of er. Also end range of flexion pain. extension to 10 degrees. strength R hip 3+ er , ir , abd, ext and 4- flexion reflexes 2/3 patella and achilles Sensation WNL to gross light touch B LE r knee also hurts end range of funcitonal flexion and extension and shows valgus in posture. Balance/Special Test Scores Lower Extremity Functional Score: 35 Goals Goal 1:: Pain 1/10 at worst adn 75% improved overall. Goal Time Frame: 4-6 Weeks Goal 2:: I appropriate HEP to limit future problems Goal Time Frame: 4-6 Weeks Goal 4:: LEFS 50 Goal Time Frame: 4-6 Weeks Goal 5:: Get out of chair without stiffness. Goal Time Frame: 4-6 Weeks Rehabilitation Potential Physical Therapy Diagnosis: R hip /knee OA likely leading to pain and dysfucntion. Rehabilitation Potential: Fair Anticipated Interventions Patient/Client Instruction: Educate patient on: Condition For the Purpose of:: To decrease pain, To increase ROM, To improve nutrient delivery to tissue, To improve muscle performance and motor function and To increase tolerance to activity/condition/position Therapeutic Exercise to Include: Strength training, Flexibilty training, In an aquatic setting, Passive ROM and Active ROM For the Purpose of:: To decrease pain, To increase ROM, To improve nutrient delivery to tissue and To improve muscle performance and motor function Text: Thank you for the opportunity to evaluate your patient. For Medicare and Medicare HMO plans, please review the plan of care and approve it. It will need to be FAXED BACK to us at [phone] for Medicare purposes. For Medicare only, by signing this I certify the plan of care. Please let me know if there are questions or concerns regarding this plan of care. Physician Signature: Date:
--- NOTE | 2023-06-28 14:26 | HP.PTREVAL ---
Re-Evaluation Intro: Dr. Lorelei Kelly MD, It has been my pleasure to treat MORRIS OWEN over the last 15 visits for R hip pain. Please see the progress note below for an update on the physical therapy plan of care! Subjective Subjective: I think I am getting better. Walking better and not in constant agonizing pain. Pain in lateral R hip occasionally <4/10 and is comfortable at rest. Twinges on the right every now and then. Does her daily activity, avoids sweeping with broom. Has kitchen area and wipes it off hands and knees. Objective Objective/Function: Walksi slow but I and good balance. Steps reciprocally with one rail. Cautious with ambuilation but good balance. NEW goal and fair prognosis. Plan Plan Plan: f/u two weeks to see if current HEP at counter and stretching keeps improving pain and function OR if needs more aggressive HEP. Balance/Gait/Functional tests Balance/Special Test Scores Functional Gait Assessment Score: 27 % Disability: 10.0000 Lower Extremity Functional Score: 35 Goals Goals Goal 1:: Pain 1/10 at worst adn 75% improved overall. Goal Time Frame: 4-6 Weeks Goal Progress: Progressing Goal 2:: I appropriate HEP to limit future problems Goal Progress: Goal Met Goal Time Frame: 4-6 Weeks Goal 4:: LEFS 50 Goal Time Frame: 4-6 Weeks Goal Progress: Not Progressing Goal 5:: Get out of chair without stiffness. Goal Time Frame: 4-6 Weeks Goal Progress: Goal Met Goal 6:: Cotninue progress on pain and mobility maintenance witho jsut HEP Goal Time Frame: 2-4 Weeks Goal Progress: NEW GOAL Anticipated Interventions Anticipated Interventions Patient/Client Instruction: Educate patient on: Condition For the Purpose of:: To decrease pain, To increase ROM, To improve nutrient delivery to tissue, To improve muscle performance and motor function and To increase tolerance to activity/condition/position Therapeutic Exercise to Include: Strength training, Flexibilty training, In an aquatic setting, Passive ROM and Active ROM For the Purpose of:: To decrease pain, To increase ROM, To improve nutrient delivery to tissue and To improve muscle performance and motor function Re-Evaluation Ending Re-evaluation ending: Please do not hesitate to contact me at [phone] by phone or if you have questions or concerns regarding this new plan of care! Sincerely, Randy Agustin, DPT, OCS, CSCS
--- NOTE | 2023-08-25 15:17 | HP.PT.NRP ---
Patient Information Patient Information: MORRIS OWEN was seen in my office for initial evaluation on 05/09/23. The following Plan of Care was established for this patient: POC Established Initial Frequency: 2x /Week Initial Duration: 4-6 Weeks Anticipated Interventions Patient/Client Instruction: Educate patient on: Condition For the Purpose of:: To decrease pain, To increase ROM, To improve nutrient delivery to tissue, To improve muscle performance and motor function and To increase tolerance to activity/condition/position Therapeutic Exercise to Include: Strength training, Flexibilty training, In an aquatic setting, Passive ROM and Active ROM For the Purpose of:: To decrease pain, To increase ROM, To improve nutrient delivery to tissue and To improve muscle performance and motor function Last Seen Last Seen: This patient was last seen in our office 06/25/23. Pertinent comments regarding their Physical therapy will appear below: Pt called and stated she was cotninuing to improve a little at a time but pain was still rpesent. recommended she continue with the exercise and f/u with doctor if improvement is not satisfactory. At this point, I will discontinue form my care. At this point I will be discontinuing this patient from physical therapy. I would be happy to see this patient again in the future if found appropriate by the physician. Thank you! Randy Agustin, DPT, OCS, CSCS Balance/Gait/Functional tests Balance/Special Test Scores Functional Gait Assessment Score: 27 % Disability: 10.0000 Lower Extremity Functional Score: 35
== END 2023-06-28 19:00 | disposition home or self-care (01) ==
LOC: PT 14:00
PROVIDERS: PCP Internal Medicine; Referring Provider Internal Medicine; Visit Provider Internal Medicine
DX: M25.551 Pain in right hip (principal)
CPT/HCPCS: 97113; 97162; 97530

== ENCOUNTER 2023-08-22 10:09 | Emergency (ER) | payer MEDICARE, OTHER, SELFPAY ==
[2023-08-22 10:10] VITALS: BP 122/95; PULSE 84; RESP 16; TEMP 36.4; O2SAT 94
[2023-08-22 10:12] VITALS: BMI 24.1
--- NOTE | 2023-08-22 10:16 | EX.ED.DYSGE1 ---
HPI History of Present Illness Chief Complaint: Weakness [facility] Medical History (Updated 08/22/23 @ 13:[address] Tremaine Gold, DO) Allergic dermatitis Arthritis B12 deficiency Cataracts, bilateral Confusion Essential hypertension Fatigue GERD (gastroesophageal reflux disease) High cholesterol High triglycerides HTN (hypertension) Hypoglycemia IBS (irritable bowel syndrome) Ophthalmic migraine Osteoarthritis Radiculopathy Radiculopathy of lumbar region Screening for intestinal cancer Sinus arrhythmia Sinus bradycardia Sinus pause Sinus tachycardia Tension headache, chronic TIA (transient ischemic attack) Tinea corporis Home Medications L.acidoph, paracasei,B. lactis 10 billion cell capsule 1 ea PO DAILY 05/09/19 [History Last Taken Unknown] wjyulasz-vkrc-kvxwg acid 200 mcg-herbal no.293 37.5 mg chewable tablet 2 ea PO DAILY 05/09/19 [History Last Taken Unknown] aspirin 81 mg tablet,delayed release (Adult Aspirin Regimen) 81 mg PO DAILY 03/17/21 [History Last Taken Unknown] calcium 650 mg-vitamin D3 12.5 mcg-vitamin K 40 mcg chewable tablet 2 tab PO DAILY 08/27/22 [History Last Taken Unknown] atorvastatin 40 mg tablet 40 mg PO QHS #90 tabs 09/21/22 [Rx Last Taken Unknown] acetaminophen 500 mg capsule 500 mg PO .COMPLEX 11/03/22 [History Last Taken Unknown] Allergy/AdvReac Type Severity Reaction Status Date / Time celecoxib [From Celebrex] Allergy Rash Verified 08/22/23 10:09 etodolac [From Lodine] Allergy Rash Verified 08/22/23 10:09 valdecoxib [From Bextra] Allergy Rash Verified 08/22/23 10:09 naproxen AdvReac Other Verified 08/22/23 10:09 Family History Father Diabetes Cancer brain CVA (cerebral vascular accident) Mother Diabetes Depression Sister Cancer uterine Son Diabetes type 1 Surgical History History of colonoscopy History of local excision of skin lesion History of tonsillectomy History of vaginal surgery Status post placement of implantable loop recorder (~05/12/21) Social History household members: none Smoking Status: Never smoker alcohol intake: never substance use type: does not use caffeine: Yes what type of physical activity do you participate in: walking seatbelt use: always do you feel safe at home: Yes additional social history: Patient is retired EXAM Physical Exam Const Vital Signs: 08/22/23 10:10 08/22/23 10:16 08/22/23 11:09 Temperature 97.6 F L Temperature Source Temporal Pulse Rate 84 Respiratory Rate 16 Respiratory Effort Normal Non-Labored Respiratory Pattern Normal Blood Pressure 122/95 H 135/72 H Blood Pressure Mean 104 93 Pulse Ox 94 Oxygen Delivery Method Room Air 08/22/23 11:12 08/22/23 11:54 08/22/23 13:00 Temperature Temperature Source Pulse Rate 72 87 Respiratory Rate 18 17 Respiratory Effort Respiratory Pattern Blood Pressure 137/72 H 152/75 H Blood Pressure Mean 93 100 Pulse Ox 98 97 Oxygen Delivery Method Room Air Room Air Room Air 08/22/23 13:19 Temperature 96.8 F L Temperature Source Pulse Rate 80 Respiratory Rate 17 Respiratory Effort Respiratory Pattern Blood Pressure 141/75 H Blood Pressure Mean 97 Pulse Ox 97 Oxygen Delivery Method MDM MDM MDM Narrative Medical decision making narrative: HISTORY OF PRESENT ILLNESS: 77-year-old female presents with left arm weakness per triage report. She notes left tenderness/pain started in June. 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 Her last known well was sometime in late June although she is not quite sure. Notes intermittent symptoms worse over the last 2 days. Notes tightness and pain in her left upper extremity. Denies weakness to me at this time. No recent head trauma. No palpitations. No bleeding diathesis. No volume loss. REVIEW OF SYSTEMS: Pertinent positives: Left arm weakness Pertinent negatives: Chest pain, shortness of breath, syncope. PHYSICAL EXAM: Nursing triage notes reviewed, Vital signs reviewed Constitutional: please see mdm HENT: MMM Eyes: Pupils equal round and reactive to light, Extraocular muscles intact Neck: No stridor, no JVD, full neck ROM Lungs: Clear to auscultation, No wheezing or rales. No increased work of breathing, no conversational dyspnea, no accessory muscle use, no nasal flaring. No respiratory distress noted Heart: Regular rate and rhythm, No murmurs, No rubs and No gallops, 2+ distal pulses (radial, femoral, posterior tibial) in all extremities Abdomen: Soft, there is no tenderness, rigidity, rebound or guarding, no obvious peritoneal signs, no palpable pulsatile abdominal masses, no auscultated abdominal bruits. : No CVAT Extremities: No edema Neuro: Alert and oriented x3, neuro exam at baseline, cranial nerves II through XII are intact. No pain with extraocular muscle movement. There is negative test of skew. 5 of 5 strength in upper and lower extremities in flexion extension. Intact sensation to light touch in upper and lower extremity dermatomes. No truncal or extremity ataxia. No dysdiadochokinesia. Normal gait. 2+ reflexes in upper and lower extremities. No meningeal signs. Negative Babinski. NIH of 0. Skin: No rash or lesions noted MEDICAL DECISION MAKING: Chief Complaint: Left arm weakness External records reviewed: CT scan of the head from 2020 shows chronic occlusive changes of the brain. MRI from 2020 shows an lesional change of the brain but no obvious infarct Factors affecting care: TIA, B12 deficiency, paresthesia, cerebrovascular disease, hyperlipidemia MDM Narrative: Patient was hemodynamically stable, afebrile and nontoxic-appearing. Initial NIH 0. No focal deficits. I considered the following differential diagnosis: CVA (Given initial report of weakness), large vessel occlusion, anemia, electro disturbance, ACS ALL IMAGES (IF OBTAINED) HAVE BEEN PERSONALLY REVIEWED AND INTERPRETED BY MYSELF. EKG with normal sinus rhythm, left axis deviation, normal intervals, no STEMI High-sensitivity troponin is negative, no evidence of myocardial ischemia CBC without leukocytosis, severe anemia, no thrombocytopenia. No coagulopathy BMP without evidence of significant electrolyte abnormalities, no anion gap, no acute kidney injury. CT of the head neck shows no evidence of large vessel occlusion or other intracranial normality I have personally reviewed the patient's chest x-ray. Chest x-ray is unremarkable for pulmonary edema, pneumothorax, pneumonia or focal cardiopulmonary abnormality. The patient and/or family, caregivers express understanding. The patient and/or family, caregivers agrees with the plan. Shared decision making: I will have a discussion with the patient and or visitors regarding risk/benefits of further testing or admission. They will be made aware of of the risk/benefits inherent in this decision they will be given the opportunity to voice understanding. Total critical care time today provided was at least 0 minutes. This excludes separately billable procedures. Critical care time (if documented) is secondary to the patient having high probability of clinically significant/life threatening deterioration in the patient's condition which required my urgent intervention. Impression: 1. Arm pain 2. History of hyperlipidemia Dispo: Discharge home This note was generated with [employer] dictation software. It may contain incorrect words, spelling, and punctuation that were not noted in review of the chart prior to signing. Lab Data Labs: Laboratory Results - last 24 hr 08/22/23 10:20 WBC 7.9 RBC 4.41 Hgb 14.3 Hct 44.3 MCV 100.5 H MCH 32.4 H MCHC 32.3 RDW Std Deviation 47.4 H RDW Coeff of Srinath 12.6 Plt Count 316 MPV 10.1 Immature Gran % (Auto) 0.100 Neut % (Auto) 67.4 Lymph % (Auto) 23.8 [place] % (Auto) 7.3 Eos % (Auto) 1.0 Baso % (Auto) 0.4 Absolute Neuts (auto) 5.3 Absolute Lymphs (auto) 1.87 Nucleated RBC % 0 PT 13.2 INR 1.0 APTT 27.2 Sodium 139 Potassium 3.7 Chloride 104 Carbon Dioxide 28.0 Anion Gap 7 BUN 13 Creatinine 1.14 H Estim Creat Clear Calc 37.78 Est GFR (MDRD) Af Amer 60 Est GFR (MDRD) Non-Af 49 L BUN/Creatinine Ratio 11.4 Glucose 130 H Calcium 10.0 Troponin I High Sens < 3 L Radiography Diagnostic Testing: Clinical Impression(s) from Imaging Studies Chest X-Ray 08/22/23 11:12 IMPRESSION: Hyperinflation. Decreased bronchovascular markings in the upper lobes worse on the right side suggestive of COPD. A loop recorder device is seen overlying the left cardiac border. Electronically Signed: Morgan Nice MD at 12:24 EDT , Head/Neck CTA 08/22/23 11:13 IMPRESSION: Normal CTA Head and neck with contrast. Electronically Signed: Morgan Nice MD at 12:33 EDT , Discharge Plan Triage Chief Complaint: Weakness ED Provider: Tremaine Gold Dx/Rx/DC Orders Clinical Impression: Arm pain, Arm weakness Instructions: ED Weakness (Uncertain Cause) Prescriptions: No Action aspirin [Adult Aspirin Regimen] 81 mg tablet,delayed release (DR/EC) 81 mg PO DAILY acetaminophen 500 mg capsule 500 mg PO .COMPLEX Rx Instructions: 500 mg orally tid; L.acidoph, paracasei,B. lactis 1 EACH capsule 1 ea PO DAILY [id number]-[id number] [id number] 1 EACH tablet,chewable 2 ea PO DAILY calcium-vitamin D3-vitamin K 650 mg-12.5 mcg-40 mcg tablet,chewable 2 tab PO DAILY atorvastatin 40 mg tablet 40 mg PO QHS Qty: 90 3RF Primary Care Provider: Lorelei Kelly Referrals: Cuate Lenz MD [Med Staff - Active Staff] - Lorelei Kelly MD [Primary Care Provider] - Activity Restrictions/Additional Instructions: Thank you for trusting us with your care today! Please take Tylenol (2 pills, 650 mg), ibuprofen (2 pills, 400 mg) every 6 hours as needed for pain and fever control. Please return to the emergency department if your symptoms change or worsen. Please follow with your primary care physician/Gambling Box Person for further outpatient evaluation and management. Disposition Disposition: Home, Self Care Discharge Date/Time: 08/22/23 13:35
[2023-08-22 11:09] VITALS: BP 135/72
--- NOTE | 2023-08-22 11:12 | EKG12_ITS ---
Test Reason : WEAKNESS Blood Pressure : / mmHG Vent. Rate : 080 BPM Atrial Rate : 080 BPM P-R Int : 152 ms QRS Dur : 092 ms QT Int : 382 ms P-R-T Axes : 060 -55 058 degrees QTc Int : 440 ms Normal sinus rhythm with sinus arrhythmia Left anterior fascicular block Abnormal ECG Confirmed by ABHAY FRANKS, JIMMIE ([id number]), film and video editor FLORA MENDEZ ([id number]) on 08/25/2023 11:35:47 AM Referred By: Confirmed By:JIMMIE BLANK MD
--- NOTE | 2023-08-22 11:12 | RAD_ITS ---
STUDY: X-RAY CHEST REASON FOR EXAM: Female, 77 years old. Neuro deficit, acute, stroke suspected TECHNIQUE: Single AP portable view of the chest. COMPARISON: None. FINDINGS: EKG electrodes are seen. There is hyperinflation of the lungs consistent with chronic obstructive lung disease (COPD). There is no demonstrated pleural abnormality. Normal size heart. A loop recording device is seen overlying the left cardiac border. Normal mediastinum and chava. Normal visualized pulmonary arteries. Normal visualized aortic arch and descending thoracic aorta. There are degenerative changes of the visualized thoracic spine. Normal visualized ribs, clavicles, and shoulders. There is no demonstrated abnormality of the visualized soft tissue structures of the upper abdomen. RAD/Chest 1 View IMPRESSION: Hyperinflation. Decreased bronchovascular markings in the upper lobes worse on the right side suggestive of COPD. A loop recorder device is seen overlying the left cardiac border. Electronically Signed: Morgan Nice MD at 12:24 EDT ,
--- NOTE | 2023-08-22 11:13 | CT_ITS ---
STUDY: CTA HEAD AND NECK WITH CONTRAST REASON FOR EXAM: Female, 77 years old. Neuro deficit, acute, stroke suspected RADIATION DOSAGE (If Supplied By Facility): CTDIvol = ( 27.54 ) mGy, DLP = ( 1415.58 ) mGycm TECHNIQUE: CT angiography was performed with a multi-detector CT scanner. Data acquisition was obtained from the skull base through the vertex following intravenous administration of IV 100mL Isovue-370. MIP images were reconstructed from the axial data set. Post-processing of the angiographic images was performed, with multiplanar reformation and 3D reconstruction. Individualized dose optimization techniques were used for this CT. COMPARISON: No relevant priors. FINDINGS: Normal bilateral petrous carotid arteries. There is mild calcified plaque formation of the right cavernous carotid artery, without a cross-sectional luminal stenosis. There is mild calcified plaque formation of the left cavernous carotid artery, without a cross-sectional luminal stenosis. Normal right A1 segments of the anterior cerebral artery. Normal left A1 segments of the anterior cerebral artery. Normal intact anterior communicating artery (ACOM). Normal bilateral A2 segments of the anterior cerebral arteries. Normal right M1 and M2 segments of the middle cerebral arteries, with a normal M1 bifurcation. Normal left M1 and M2 segments of the middle cerebral arteries, with a normal M1 bifurcation. Normal right posterior communicating artery (PCOM). Normal left posterior communicating artery (PCOM). Normal bilateral vertebral arteries. Normal basilar artery with a normal basilar bifurcation. The visualized bilateral superior cerebellar (SCA) arteries are normal. Normal bilateral P1, P2 and visualized P3 segments of the posterior cerebral arteries. There is no demonstrated aneurysm of the eek of Anne. Mild degree of cerebral atrophy with the decreased attenuation in the deep white matter suggestive of a chronic ischemic changes. AORTIC ARCH: There is a mild degree of atherosclerotic calcific plaque formation of the aortic arch and great vessels arising from the aortic arch, without a hemodynamically significant stenosis. There is a normal origin of the brachiocephalic, left common carotid, and left subclavian arteries. Mild degree of heterogeneous appearance of both lobes of the thyroid gland. RIGHT CAROTID ARTERIES: Normal right common carotid artery (CCA). Normal right common carotid bulb. Normal origin of the right internal carotid (ICA) artery without a hemodynamically significant stenosis. Normal visualized cervical portion of the right internal carotid artery. Normal origin of the right external carotid artery (ECA). LEFT CAROTID ARTERIES: Normal left common carotid artery (CCA). Normal left common carotid bulb. Normal origin of the left internal carotid (ICA) artery without a hemodynamically significant stenosis. Normal visualized cervical portion of the left internal carotid artery. Normal origin of the left external carotid artery (ECA). VERTEBRAL ARTERIES: There is enhancement within the bilateral vertebral arteries with a small right vertebral artery, and a dominant left vertebral artery. CT/CTA Head AND Neck W/ Contrast IMPRESSION: Normal CTA Head and neck with contrast. Electronically Signed: Morgan Nice MD at 12:33 EDT ,
[2023-08-22 11:27] LABS: Absolute Lymphocyte Count 1.87 X10^3/uL (0.83-4.51); Absolute Neutrophil Count 5.3 X10^3/uL (2.0-7.7); Basophil# 0.03 X10^3/uL; Basophil% 0.4 % (0-1); Eosinophil# 0.08 X10^3/uL; Hematocrit 44.3 % (37-47); Hemoglobin 14.3 g/dL (12.0-15.0); Lymphocyte # 1.87 X10^3/ul (0.83-4.51); Lymphocyte % 23.8 % (19-41); Mean Corp Hgb Conc 32.3 g/dL (32-36); Mean Corpuscular Hgb 32.4 pg (27.0-32.0); Mean Corpuscular Volume 100.5 fL (81-99); Mean Platelet Vol. 10.1 fl (6.2-12.0); Monocyte# 0.57 X10^3/uL; Monocyte% 7.3 % (0-10); NRBC Flagged by Analyzer 0 % (0-5); Neutrophil % 67.4 % (47-70); Platelet Count 316 K/mm3 (150-450); RBC Distribution Width CV 12.6 % (11.6-14.6); RBC Distribution Width SD 47.4 fl (35.1-43.9); Red Blood Count 4.41 M/mm3 (4.2-5.4); White Blood Count 7.9 K/mm3 (4.4-11.0)
[2023-08-22 11:36] LABS: Partial Thromboplast Time 27.2 Seconds (24.1-36.2); Prothrombin Time (Protime)PT. 13.2 SECONDS (11.7-14.9)
[2023-08-22 11:45] LABS: Anion Gap 7 (5-15); BUN 13 mg/dL (7-18); BUN/Creat Ratio 11.4 RATIO (10-20); Chloride 104 mmol/L (98-107); Creatinine, Serum 1.14 mg/dL (0.55-1.02); EST Glomerular Filtration Rate 49 mL/min (>60); Est Glom Filt Rate - Afr Amer 60 mL/min (>60); Estimated Creatinine Clearance 37.78 ml/min; Glucose 130 mg/dL (74-106); Potassium 3.7 mmol/L (3.5-5.1); Sodium Level 139 mmol/L (136-145); Troponin-I HS < 3 pg/mL (3.0-54.0)
[2023-08-22 11:54] VITALS: BP 137/72; PULSE 72; RESP 18; O2SAT 98
[2023-08-22 13:00] VITALS: BP 152/75; PULSE 87; RESP 17; O2SAT 97
[2023-08-22 13:19] VITALS: BP 141/75; PULSE 80; RESP 17; TEMP 36; O2SAT 97
== END 2023-08-22 13:35 | disposition home or self-care (01) ==
PROVIDERS: Emergency Provider Emergency Medicine; PCP Internal Medicine; Visit Provider Emergency Medicine
DX: M79.602 Pain in left arm (principal); R29.898 Other symptoms and signs involving the musculoskeletal system; E78.00 Pure hypercholesterolemia, unspecified; I10 Essential (primary) hypertension; Z79.82 Long term (current) use of aspirin; Z79.899 Other long term (current) drug therapy; Z86.73 Personal history of transient ischemic attack (TIA), and cerebral infarction without residual deficits
CPT/HCPCS: 70496; 70498; 71045; 80048; 84484; 85025; 85610; 85730; 93005; 99284; Q9967; A4216

== ENCOUNTER 2023-09-01 06:46 | Day surgery (SDC) | payer MEDICARE, OTHER, SELFPAY ==
[2023-08-31 14:15] VITALS: BMI 26.1
--- NOTE | 2023-09-01 08:48 | CL.IE_ITS ---
Patient: MORRIS OWEN Study Date: 09/01/2023 Performing: Cuate Lenz MD : [id number] Age: 77 Gender: female PROCEDURES PERFORMED [id number])REMOVAL OF LOOP RECORDER INDICATIONS PROCEDURE DETAILS The patient was brought to the Catheterization Lab in the postabsorptive nonsedated state. Informed consent was obtained prior to the procedure. . The patient tolerated the procedure well. Estimated Blood Loss: 0 ml's IMPLANTED / EX-PLANTED DEVICES DEVICE PARAMETERS CONCLUSIONS / RECOMMENDATIONS Device Conclusions: Successful removal of a patient activated loop recorder. Device Recommendations: Follow up with Primary Care Physician PROCEDURE MEDICATIONS Fentanyl 50 mcg IV Versed 1 mg IV Oxygen: 2 L/min via nasal cannula Antibiotic given in appropriate timeframe. Ancef 2 Gm IV @ 09/01/2023 08:29:32 Signed By Cuate Lenz MD On 09/01/2023 08:47:05 Cuate Lenz MD
== END 2023-09-01 09:55 | disposition home or self-care (01) ==
LOC: CLSP 06:49
PROVIDERS: PCP Internal Medicine; Referring Provider Internal Medicine Cardiovascular Disease; Visit Provider Internal Medicine Cardiovascular Disease
DX: Z45.09 Encounter for adjustment and management of other cardiac device (principal); I45.5 Other specified heart block; I10 Essential (primary) hypertension; E78.00 Pure hypercholesterolemia, unspecified; K21.9 Gastro-esophageal reflux disease without esophagitis; Z79.82 Long term (current) use of aspirin; Z86.73 Personal history of transient ischemic attack (TIA), and cerebral infarction without residual deficits
CPT/HCPCS: 33286; 99152; J7040

== ENCOUNTER → 2023-09-12 | Outpatient (CLI) | payer MEDICARE, OTHER, SELFPAY ==
[2023-09-12 19:05] LABS: Vitamin B12 623 pg/mL (211-911)
== END | disposition home or self-care (01) ==
LOC: BIMLAB 13:03
PROVIDERS: PCP Internal Medicine; Visit Provider Internal Medicine
DX: E53.8 Deficiency of other specified B group vitamins (principal)
CPT/HCPCS: 36415; 82607

== ENCOUNTER → 2023-10-05 | Outpatient (CLI) | payer MEDICARE, OTHER, SELFPAY ==
--- NOTE | 2023-10-05 12:01 | NEURO ---
NCS and/or EMG Patient Report Ordering Doctor: Drew Ng DATE OF SERVICE: 10/05/23 Kesha presents electrodiagnostic testing of the right upper limb. She reports numbness and tingling in the right second digit. She has neck pain that intermittently radiates into the right upper limb. Electrodiagnostic findings: Right median motor nerve demonstrates normal distal latency, amplitude and conduction velocity. Right ulnar motor response demonstrates normal distal latency, amplitude and conduction velocity across the elbow. Sensory responses are within normal limits. Normal median and ulnar F?wave. Needle EMG testing was performed in the right upper limb. All muscles tested, including the right cervical paraspinals, showed no evidence of denervation with normal motor unit action potentials. Electrodiagnostic impression: This is a normal electrodiagnostic study of the right upper limb. There is no electrodiagnostic evidence for peripheral neuropathy, including carpal tunnel or cubital tunnel syndrome. There is no electrodiagnostic evidence for cervical radiculopathy. Multi Select Codes Neurology Neurology Interp Codes: 94869-59 Musc test done w/n test comp (interp) and 82933-10 Nrv cndj test 7-8 studies (interp)
== END | disposition home or self-care (01) ==
LOC: PSN 10:14
PROVIDERS: PCP Internal Medicine; Referring Provider Orthopaedic Surgery; Visit Provider Orthopaedic Surgery
DX: M54.12 Radiculopathy, cervical region (principal); R20.2 Paresthesia of skin
CPT/HCPCS: 95886; 95910

== ENCOUNTER 2024-01-20 16:09 | Emergency (ER) | payer MEDICARE, OTHER, SELFPAY ==
[2024-01-20] VITALS (9 sets, daily range): BP systolic 142–182; BP diastolic 70–94; PULSE 59–75; RESP 14–22; TEMP 35.8; O2SAT 95–99; BMI 26.6
--- NOTE | 2024-01-20 17:00 | EDS_ITS ---
HPI History of Present Illness Chief Complaint: Palpitations [facility] Medical History Tinea corporis Cataracts, bilateral Allergic dermatitis Fatigue B12 deficiency Tension headache, chronic Essential hypertension Sinus arrhythmia Sinus pause Sinus tachycardia Sinus bradycardia Confusion Osteoarthritis GERD (gastroesophageal reflux disease) Hypoglycemia High triglycerides High cholesterol IBS (irritable bowel syndrome) Radiculopathy HTN (hypertension) TIA (transient ischemic attack) Ophthalmic migraine Screening for intestinal cancer Radiculopathy of lumbar region Arthritis Home Medications ?Medication ?Instructions ?Recorded ?Last Taken ?Type L.acidoph, paracasei,B. lactis 10 1 ea PO DAILY 05/09/19 Unknown History billion cell capsule aspirin 81 mg tablet,delayed 81 mg PO DAILY 03/17/21 Unknown History release (Adult Aspirin Regimen) calcium 650 mg-vitamin D3 12.5 2 tab PO DAILY 08/27/22 Unknown History mcg-vitamin K 40 mcg chewable tablet acetaminophen 500 mg capsule 500 mg PO .COMPLEX 11/03/22 Unknown History calcium 260 mg (phos,tribasic)-D3 2 tab PO DAILY 08/24/23 Unknown History 25 mcg-herbal 50 mg chewable tablet (Alive Calcium-Vitamin D3) coenzyme Q10 75 mg capsule (Ultra 75 mg PO DAILY 08/24/23 Unknown History CoQ10) atorvastatin 40 mg tablet 40 mg PO QHS #90 tabs 09/26/23 Unknown Rx Allergy/AdvReac Type Severity Reaction Status Date / Time celecoxib (From Celebrex) Allergy Rash Verified 01/20/24 16:10 etodolac (From Lodine) Allergy Rash Verified 01/20/24 16:10 valdecoxib (From Bextra) Allergy Rash Verified 01/20/24 16:10 naproxen AdvReac Other Verified 01/20/24 16:10 Family History Father Diabetes Cancer brain CVA (cerebral vascular accident) Mother Diabetes Depression Sister Cancer uterine Son Diabetes type 1 Surgical History History of cataract surgery Status post placement of implantable loop recorder (~05/12/21) History of colonoscopy History of local excision of skin lesion History of vaginal surgery History of tonsillectomy Social History household members: none Smoking Status: Never smoker alcohol intake: never substance use type: does not use caffeine: Yes what type of physical activity do you participate in: walking seatbelt use: always do you feel safe at home: Yes additional social history: Patient is retired EXAM Physical Exam Const Vital Signs: 01/20/24 16:10 01/20/24 17:24 01/20/24 17:28 Temperature 96.5 F L Temperature Source Temporal Pulse Rate 73 Pulse Rate [Sitting (for 1 minute prior to obtaining)] 75 Respiratory Rate 18 Respiratory Effort Blood Pressure 142/92 H Blood Pressure [Lying] 177/85 H Blood Pressure [Sitting (for 1 minute prior to obtaining)] 182/82 H Blood Pressure [Standing (for 1 minute prior to obtaining)] 174/94 H Blood Pressure Mean 108 Blood Pressure Mean [Lying] 115 Blood Pressure Mean [Sitting (for 1 minute prior to obtaining)] 115 Blood Pressure Mean [Standing (for 1 minute prior to obtaining)] 120 Pulse Ox 95 Oxygen Delivery Method Room Air Room Air 01/20/24 17:29 01/20/24 18:09 01/20/24 18:13 Temperature Temperature Source Pulse Rate 68 62 Pulse Rate [Sitting (for 1 minute prior to obtaining)] Respiratory Rate 18 18 Respiratory Effort Normal Non-Labored Blood Pressure 160/79 H Blood Pressure [Lying] Blood Pressure [Sitting (for 1 minute prior to obtaining)] Blood Pressure [Standing (for 1 minute prior to obtaining)] Blood Pressure Mean 106 Blood Pressure Mean [Lying] Blood Pressure Mean [Sitting (for 1 minute prior to obtaining)] Blood Pressure Mean [Standing (for 1 minute prior to obtaining)] Pulse Ox 96 98 Oxygen Delivery Method Room Air 01/20/24 18:15 01/20/24 18:30 01/20/24 18:45 Temperature Temperature Source Pulse Rate 59 L 59 L Pulse Rate [Sitting (for 1 minute prior to obtaining)] Respiratory Rate 16 22 H Respiratory Effort Blood Pressure 162/78 H 165/70 H 161/76 H Blood Pressure [Lying] Blood Pressure [Sitting (for 1 minute prior to obtaining)] Blood Pressure [Standing (for 1 minute prior to obtaining)] Blood Pressure Mean 102 97 102 Blood Pressure Mean [Lying] Blood Pressure Mean [Sitting (for 1 minute prior to obtaining)] Blood Pressure Mean [Standing (for 1 minute prior to obtaining)] Pulse Ox 97 99 Oxygen Delivery Method 01/20/24 19:00 01/20/24 21:01 Temperature Temperature Source Pulse Rate 64 Pulse Rate [Sitting (for 1 minute prior to obtaining)] Respiratory Rate 14 Respiratory Effort Blood Pressure 172/78 H 156/83 H Blood Pressure [Lying] Blood Pressure [Sitting (for 1 minute prior to obtaining)] Blood Pressure [Standing (for 1 minute prior to obtaining)] Blood Pressure Mean 105 107 Blood Pressure Mean [Lying] Blood Pressure Mean [Sitting (for 1 minute prior to obtaining)] Blood Pressure Mean [Standing (for 1 minute prior to obtaining)] Pulse Ox 97 Oxygen Delivery Method MDM MDM MDM Narrative Medical decision making narrative: HISTORY OF PRESENT ILLNESS: 78-year-old female presents with chest tightness. She states she developed a strange feeling in her chest just prior to arrival. She notes this is in the setting of her having lightheadedness for last several months. Notes this is worse when she rises from a seated position. She notes the pain does not radiate is described as tightness. It is not ripping or tearing. She denies any vomiting or diarrhea. Denies any syncope. Denies any bleeding diathesis or other volume loss. Denies any cough fever chills. Denies any leg swelling. Denies any focal weakness Patient denies sudden onset of pain, no tearing sensation, no migratory symptoms, no new numbness, weakness or loss of sensation. Patient denies family history or personal history of Connective tissue disorders (Marfan's Syndrome, Kaden Danlos etc) The patient denies recent surgery in the last 4 weeks or immobilization in the last 3 days, denies previous diagnosis of DVT or PE, hemoptysis, unilateral leg swelling or malignancy with treatment the last 6 months or palliative. No estrogen use noted. REVIEW OF SYSTEMS: Pertinent positives: Chest pain Pertinent negatives: Lightheadedness PHYSICAL EXAM: Nursing triage notes reviewed, Vital signs reviewed Constitutional: please see mdm HENT: MMM Eyes: Pupils equal round and reactive to light, Extraocular muscles intact Neck: No stridor, no JVD, full neck ROM Lungs: Clear to auscultation, No wheezing or rales. No increased work of breathing, no conversational dyspnea, no accessory muscle use, no nasal flaring. No respiratory distress noted Heart: Regular rate and rhythm, No murmurs, No rubs and No gallops, 2+ distal pulses (radial, femoral, posterior tibial) in all extremities Abdomen: Soft, there is no tenderness, rigidity, rebound or guarding, no obvious peritoneal signs, no palpable pulsatile abdominal masses, no auscultated abdominal bruit : No CVAT Extremities: No edema Neuro: Alert and oriented x3, neuro exam at baseline, cranial nerves II through XII are intact. No pain with extraocular muscle movement. There is negative test of skew. 5 of 5 strength in upper and lower extremities in flexion extension. Intact sensation to light touch in upper and lower extremity dermatomes. No truncal or extremity ataxia. No dysdiadochokinesia. Normal gait. 2+ reflexes in upper and lower extremities. No meningeal signs. Negative Babinski. NIH of 0. Skin: No rash or lesions noted MEDICAL DECISION MAKING: Chief Complaint: Chest pain External records reviewed: Medications reviewed, Factors affecting care: IBS, hypertension, Social determinants of health: none History obtained from others: The patient's son Consults: none [facility] Narrative: The patient was hemodynamically stable, afebrile and nontoxic-appearing. No focal cardiopulmonary abnormalities noted on initial exam I considered the following differential diagnosis: ACS, anemia, electro disturbance, dehydration ALL IMAGES (IF OBTAINED) HAVE BEEN PERSONALLY REVIEWED AND INTERPRETED BY MYSELF. EKG with normal sinus rhythm, left ax deviation, normal intervals, no STEMI High-sensitivity troponin is negative, no evidence of myocardial ischemia x 2 (ACS ruled out by high-sensitivity protocol) I have personally reviewed the patient's chest x-ray. Chest x-ray is unremarkable for pulmonary edema, pneumothorax, pneumonia or focal cardiopulm onary abnormality. BMP without evidence of significant electrolyte abnormalities, no anion gap, no acute kidney injury. Patient has stable orthostatic vital signs with no signs of significant orthosta sis. The synthesis of the patient's history, physical exam, labs images suggest no acute life-limiting etiology specifically no signs of ACS, significant anemia, electro disturbances, signs of pneumothorax pneumonia. PE, aorta dissection would not suggestive by history and physical. Unclear etiology may be secondary to dehydration or deconditioning. No indication for hospitalization at this [place] although this was considered. Patient is appropriate for discharge home with close PCP follow-up The patient and/or family, caregivers express understanding. The patient and/or family, caregivers agrees with the plan. Shared decision making: I will have a discussion with the patient and or visitors regarding risk/benefits of further testing or admission. They will be made aware of of the risk/benefits inherent in this decision they will be given the opportunity to voice understanding. Total critical care time today provided was at least 0 minutes. This excludes separately billable procedures. Critical care time (if documented) is secondary to the patient having high probability of clinically significant/life threatening deterioration in the patient's condition which required my urgent intervention. Impression: 1. Chest pain 2. History of hypertension 3. History of hyperlipidemia Dispo: discharge This note was generated with [employer] dictation software. It may contain incorrect words, spelling, and punctuation that were not noted in review of the chart prior to signing. Lab Data Labs: Laboratory Results - last 24 hr 01/20/24 01/20/24 17:35 19:31 WBC 8.1 RBC 4.09 L Hgb 13.4 Hct 41.0 MCV 100.2 H MCH 32.8 H MCHC 32.7 RDW Std Deviation 46.5 H RDW Coeff of Srinath 12.4 Plt Count 314 MPV 10.2 Immature Gran % (Auto) 0.400 Neut % (Auto) 56.7 Lymph % (Auto) 32.2 [place] % (Auto) 9.0 Eos % (Auto) 1.1 Baso % (Auto) 0.6 Absolute Neuts (auto) 4.6 Absolute Lymphs (auto) 2.61 Nucleated RBC % 0 Sodium 141 Potassium 3.8 Chloride 106 Carbon Dioxide 29.0 Anion Gap 6 BUN 14 Creatinine 1.01 Estim Creat Clear Calc 46.56 Est GFR (MDRD) Af Amer 68 Est GFR (MDRD) Non-Af 57 L BUN/Creatinine Ratio 13.9 Glucose 90 Calcium 10.0 Troponin I High Sens 5 7 Radiography CTA PE Study: No Evidence of Dissection Diagnostic Testing: Clinical Impression(s) from Imaging Studies Chest X-Ray 01/20/24 17:36 IMPRESSION: No radiographic evidence of acute cardiopulmonary disease. Electronically Signed: Tesfaye Lucero MD at 18:15 EDT , Discharge Plan Triage Chief Complaint: Palpitations ED Provider: Tremaine Gold Dx/Rx/DC Orders Clinical Impression: Chest tightness Instructions: ED Chest Pain, Uncertain Cause Prescriptions: No Action aspirin [Adult Aspirin Regimen] 81 mg tablet,delayed release (DR/EC) 81 mg PO DAILY acetaminophen 500 mg capsule 500 mg PO .COMPLEX Rx Instructions: 500 mg orally tid; Alive Calcium-Vitamin D3 260 mg calcium- 25 mcg-50 mg tablet,chewable 2 tab PO DAILY Ultra CoQ10 75 mg capsule 75 mg PO DAILY L.acidoph, paracasei,B. lactis 1 EACH capsule 1 ea PO DAILY calcium-vitamin D3-vitamin K 650 mg-12.5 mcg-40 mcg tablet,chewable 2 tab PO DAILY atorvastatin 40 mg tablet 40 mg PO QHS Qty: 90 3RF Primary Care Provider: Lorelei Kelly Referrals: Lorelei Kelly MD [Primary Care Provider] - Activity Restrictions/Additional Instructions: Thank you for trusting us with your care today! Please start taking daily aspirin (81 mg) Please return to the emergency department if your symptoms change or worsen. Please follow with your primary care physician for further outpatient evaluation and management. Print Language: Colombian Disposition Disposition: Home, Self Care
--- NOTE | 2024-01-20 17:02 | EKG12_ITS ---
Test Reason : PALPITATIONS Blood Pressure : / mmHG Vent. Rate : 073 BPM Atrial Rate : 073 BPM P-R Int : 146 ms QRS Dur : 090 ms QT Int : 388 ms P-R-T Axes : 030 -47 028 degrees QTc Int : 427 ms Normal sinus rhythm Left anterior fascicular block Abnormal ECG Confirmed by ABHAY FRANKS, JIMMIE ([id number]), editor department ASHOK POP ([id number]) on 01/24/2024 2:01:50 PM Referred By: Confirmed By:JIMMIE BLANK MD
[2024-01-20] MEDS: 0.9% Normal Saline (500mL Bag) 500 ML 999 ML IV (17:34)
--- NOTE | 2024-01-20 17:36 | RAD_ITS ---
EXAM: XR CHEST, 1 VIEW CLINICAL INDICATION: CHEST PAIN TECHNIQUE: Frontal view of the chest. COMPARISON: 08/22/2023 FINDINGS:
[2024-01-20 17:50] LABS: Absolute Lymphocyte Count 2.61 X10^3/uL (0.83-4.51); Absolute Neutrophil Count 4.6 X10^3/uL (2.0-7.7); Basophil# 0.05 X10^3/uL; Basophil% 0.6 % (0-1); Eosinophil# 0.09 X10^3/uL; Eosinophils% 1.1 % (0-5); Hemoglobin 13.4 g/dL (12.0-15.0); Lymphocyte # 2.61 X10^3/ul (0.83-4.51); Lymphocyte % 32.2 % (19-41); Mean Corp Hgb Conc 32.7 g/dL (32-36); Mean Corpuscular Hgb 32.8 pg (27.0-32.0); Mean Corpuscular Volume 100.2 fL (81-99); Mean Platelet Vol. 10.2 fl (6.2-12.0); Monocyte# 0.73 X10^3/uL; NRBC Flagged by Analyzer 0 % (0-5); Neutrophil % 56.7 % (47-70); Platelet Count 314 K/mm3 (150-450); RBC Distribution Width CV 12.4 % (11.6-14.6); RBC Distribution Width SD 46.5 fl (35.1-43.9); Red Blood Count 4.09 M/mm3 (4.2-5.4); White Blood Count 8.1 K/mm3 (4.4-11.0)
[2024-01-20 18:11] LABS: Anion Gap 6 (5-15); BUN 14 mg/dL (7-18); BUN/Creat Ratio 13.9 RATIO (10-20); Chloride 106 mmol/L (98-107); Creatinine, Serum 1.01 mg/dL (0.55-1.02); EST Glomerular Filtration Rate 57 mL/min (>60); Est Glom Filt Rate - Afr Amer 68 mL/min (>60); Estimated Creatinine Clearance 46.56 ml/min; Glucose 90 mg/dL (74-106); Potassium 3.8 mmol/L (3.5-5.1); Sodium Level 141 mmol/L (136-145); Troponin-I HS (w/2H Reflex) 5 pg/mL (3.0-54.0)
[2024-01-20 19:42] LABS: Reflex Troponin-HS? (from REC) Y
[2024-01-20 20:17] LABS: Troponin-I HS 7 pg/mL (3.0-54.0)
== END 2024-01-20 21:14 | disposition home or self-care (01) ==
PROVIDERS: Emergency Provider Emergency Medicine; PCP Internal Medicine; Visit Provider Emergency Medicine
DX: R07.89 Other chest pain (principal); R00.2 Palpitations; I10 Essential (primary) hypertension; E78.00 Pure hypercholesterolemia, unspecified; K58.9 Irritable bowel syndrome, unspecified; Z79.82 Long term (current) use of aspirin; Z79.899 Other long term (current) drug therapy
CPT/HCPCS: 71045; 80048; 84484; 85025; 93005; 96360; 96361; 99284; J7040; A4216

== ENCOUNTER 2024-04-30 14:47 | Emergency (ER) | payer MEDICARE, OTHER, SELFPAY ==
[2024-04-30] VITALS (10 sets, daily range): BP systolic 134–161; BP diastolic 70–83; PULSE 62–89; RESP 16–18; TEMP 36.1–37.1; O2SAT 66–100; BMI 25.6
--- NOTE | 2024-04-30 15:22 | CT_ITS ---
STUDY: CTA HEAD AND NECK WITH CONTRAST REASON FOR EXAM: Female, 78 years old. transient vision disturbance RADIATION DOSAGE (If Supplied By Facility): CTDIvol = ( 29.18 ) mGy, DLP = ( 1438.00 ) mGycm TECHNIQUE: CT angiography was performed with a multi-detector CT scanner. Data acquisition was obtained from the skull base through the vertex following intravenous administration of IV 100mL [id number]-[id number]. MIP images were reconstructed from the axial data set. Post-processing of the angiographic images was performed, with multiplanar reformation and 3D reconstruction. Individualized dose optimization techniques were used for this CT. The protocol utilizes one or more of the following dose reduction techniques: automated exposure control, adjustment of mA and/or kV according to patient size,and/or use of iterative reconstruction technique. COMPARISON: CTA brain and neck August 22, 2023. FINDINGS: Normal bilateral petrous carotid arteries. Normal right cavernous carotid artery with a normal supraclinoid bifurcation. Normal left cavernous carotid artery with a normal supraclinoid bifurcation. Normal right A1 segments of the anterior cerebral artery. Normal left A1 segments of the anterior cerebral artery. Normal intact anterior communicating artery (ACOM). Normal bilateral A2 segments of the anterior cerebral arteries. Normal right M1 and M2 segments of the middle cerebral arteries, with a normal M1 bifurcation. Normal left M1 and M2 segments of the middle cerebral arteries, with a normal M1 bifurcation. There is non-visualization of the right posterior communicating artery (PCOM). There is a persistent origin of the left posterior cerebral artery with absence of the posterior communicating artery (PCOM). Normal bilateral vertebral arteries. Left vertebral artery dominant. Normal basilar artery with a normal basilar bifurcation. The visualized bilateral superior cerebellar (SCA) arteries are normal. Normal bilateral P1, P2 and visualized P3 segments of the posterior cerebral arteries. There is no demonstrated aneurysm of the [place]. There is no demonstrated abnormality of the visualized brain. AORTIC ARCH: Normal visualized aortic arch. Normal origins of the brachiocephalic, left common carotid, and left subclavian arteries. RIGHT CAROTID ARTERIES: Normal right common carotid artery (CCA). Normal right common carotid bulb. Normal origin of the right internal carotid (ICA) artery without a hemodynamically significant stenosis. Normal visualized cervical portion of the right internal carotid artery. Normal origin of the right external carotid artery (ECA). LEFT CAROTID ARTERIES: Normal left common carotid artery (CCA). Normal left common carotid bulb. Normal origin of the left internal carotid (ICA) artery without a hemodynamically significant stenosis. Normal visualized cervical portion of the left internal carotid artery. Normal origin of the left external carotid artery (ECA). VERTEBRAL ARTERIES: Normal bilateral vertebral arteries. CT/CTA Head AND Neck W/ Contrast IMPRESSION: Normal CTA Head and neck with contrast. Electronically Signed: Sergey Castanon MD at 16:59 EST ,
--- NOTE | 2024-04-30 15:22 | EKG12_ITS ---
Test Reason : NEURO S/SX Blood Pressure : */* mmHG Vent. Rate : 67 BPM Atrial Rate : 67 BPM P-R Int : 164 ms QRS Dur : 96 ms QT Int : 414 ms P-R-T Axes : 48 -40 27 degrees QTcB Int : 437 ms Normal sinus rhythm Left axis deviation Abnormal ECG Confirmed by En Khan ([id number]), fan mail editor FLORA MENDEZ ([id number]) on 05/01/2024 1:24:28 PM Referred By: Sammy Roger Confirmed By: En Khan
--- NOTE | 2024-04-30 15:23 | EDS_ITS ---
HPI History of Present Illness Chief Complaint: Neuro S/Sx Informant: patient Narrative Narrative: 78-year-old female states almost 4 hours ago, she was in a grocery store standing talking with a friend when she suddenly started having a left retro- orbital headache and left eye vision disturbance that looked like ice cracking all over her field of vision. There was no vision loss. The pain radiated to the right side of the nose but nowhere else in her head. The vision disturbance occurred in the left eye only and not the right. It was not just in 1 field of vision it was the complete left eye field. It lasted 3 to 5 minutes, the headache persists now but is not as bad as it was before and she has no other symptoms. No nausea or vomiting. No loss of consciousness. No neck pain other than the usual chronic discomfort she has associated with some disc issues. She states this has happened maybe 7 or 8 times total in her life over the last multiple years, she has been seen in the ER several times for it in the past and had a negative workup but not been admitted. She is on aspirin but takes no anticoagulants. [facility] Medical History Tinea corporis Cataracts, bilateral Allergic dermatitis Fatigue B12 deficiency Tension headache, chronic Essential hypertension Sinus arrhythmia Sinus pause Sinus tachycardia Sinus bradycardia Confusion Osteoarthritis GERD (gastroesophageal reflux disease) Hypoglycemia High triglycerides High cholesterol IBS (irritable bowel syndrome) Radiculopathy HTN (hypertension) TIA (transient ischemic attack) Ophthalmic migraine Screening for intestinal cancer Radiculopathy of lumbar region Arthritis Home Medications ?Medication ?Instructions ?Recorded ?Last Taken ?Type L.acidoph,paracasei,B.animalis 10 1 ea PO DAILY 05/09/19 Unknown History billion cell capsule aspirin 81 mg tablet,delayed 81 mg PO DAILY 03/17/21 Unknown History release (Adult Aspirin Regimen) calcium 650 mg-vitamin D3 12.5 2 tab PO DAILY 08/27/22 Unknown History mcg-vitamin K 40 mcg chewable tablet calcium 260 mg (phos,tribasic)-D3 2 tab PO DAILY 08/24/23 Unknown History 25 mcg-herbal 50 mg chewable tablet (Alive Calcium-Vitamin D3) coenzyme Q10 75 mg capsule (Ultra 75 mg PO DAILY 08/24/23 Unknown History CoQ10) atorvastatin 40 mg tablet 40 mg PO QHS #90 tabs 09/26/23 Unknown Rx acetaminophen 500 mg capsule 500 mg PO .COMPLEX 02/06/24 Unknown History Allergy/AdvReac Type Severity Reaction Status Date / Time celecoxib (From Celebrex) Allergy Rash Verified 04/30/24 14:48 etodolac (From Lodine) Allergy Rash Verified 04/30/24 14:48 valdecoxib (From Bextra) Allergy Rash Verified 04/30/24 14:48 naproxen AdvReac Other Verified 04/30/24 14:48 Family History Father Diabetes Cancer brain CVA (cerebral vascular accident) Mother Diabetes Depression Sister Cancer uterine Son Diabetes type 1 Surgical History History of cataract surgery Status post placement of implantable loop recorder (~05/12/21) History of colonoscopy History of local excision of skin lesion History of vaginal surgery History of tonsillectomy Social History household members: none Smoking Status: Never smoker alcohol intake: never substance use type: does not use caffeine: Yes what type of physical activity do you participate in: walking seatbelt use: always do you feel safe at home: Yes additional social history: Patient is retired ROS ROS ED Constitutional Constitutional ED: Denies chills or fever(s) Eyes Eyes: Reports blurry vision left (transient; gone now) and change in vision; Denies diplopia or loss of vision ENT ENT ED: Denies rhinorrhea or sore throat Cardiovascular Cardiovascular: Denies chest pain or palpitations Respiratory/Chest Respiratory/Chest: Denies cough or dyspnea Gastrointestinal Gastrointestinal: Denies abdominal pain, diarrhea, nausea or vomiting Genitourinary Genitourinary ED: Denies dysuria or hematuria Musculoskeletal Musculoskeletal: Denies back pain or neck pain Integumentary Denies abscess or rash Neurologic Neurologic: Reports headache(s); Denies paresthesias or weakness EXAM Physical Exam Const Vital Signs: 04/30/24 14:48 04/30/24 15:28 04/30/24 15:28 Temperature 96.9 F L 97.8 F Temperature Source Oral Oral Pulse Rate 78 62 Respiratory Rate 18 18 Blood Pressure 134/70 H 151/74 H Blood Pressure Mean 91 99 Pulse Ox 100 98 Oxygen Delivery Method Room Air Room Air Room Air 04/30/24 15:52 04/30/24 16:11 04/30/24 16:22 Temperature 98.7 F 98.7 F Temperature Source Oral Oral Pulse Rate 69 69 79 Respiratory Rate 18 18 16 Blood Pressure 161/83 H 145/70 H 142/76 H Blood Pressure Mean 109 95 98 Pulse Ox 98 66 98 Oxygen Delivery Method Room Air Room Air Room Air 04/30/24 17:00 04/30/24 17:30 04/30/24 18:00 Temperature 98.7 F 98.7 F Temperature Source Oral Oral Pulse Rate 66 89 72 Respiratory Rate 18 18 18 Blood Pressure 148/78 H 139/76 H 151/78 H Blood Pressure Mean 101 97 102 Pulse Ox 98 98 98 Oxygen Delivery Method Room Air Room Air Room Air Positive well nourished and well developed General Appearance ED: well developed and NAD HEENT Reports moist mucous membranes normocephalic and atraumatic Eyes PERRL and EOMs intact bilaterally Neck full ROM and supple Resp normal respiratory effort and clear to auscultation bilaterally Cardio regular rate, regular rhythm and no murmurs GI non-tender and non-distended Auscultation: normoactive bowel sounds Palpation: soft Back/Spine no CVA tenderness General Back: other FROM Extremity normal to inspection General Extremety ED: Negative for edema, pulses abnormal or tenderness General Extremity: Negative for edema or pulses abnormal Neuro oriented x3, CN's II-XII intact bilaterally and no sensory deficits noted Neuro 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 No disorientation. No dysmetria. No visual field losses. Sensorium / Orientation: awake and alert Motor Exam: strength 5/5 throughout Psych mental status grossly normal Skin no rashes or lesions noted and no wounds NIHSS NIHSS Initial: 1a Level of Consciousness: 0 1b LOC Questions (Score 2 if aphasic/stupor): 0 1c LOC Commands (Only score 1st attempt): 0 2 Best Gaze (If aphasic, use reflexive mvmts.): 0 3 Visual: 0 4 Facial Palsy: 0 5 Motor Arm Right (UN = amputation/fusion): 0 5 Motor Arm Left: 0 6 Motor Leg Right: 0 6 Motor Leg Left: 0 7 Limb ataxia (Only + if out of proportion): 0 8 Sensory (Aphasia/stupor=0 or 1, coma=2): 0 9 Best Language: 0 10 Dysarthria (mute, coma=2, intubated=UN): 0 11 Extinction and Inattention (only scored if +): 0 Total Score: 0 MDM MDM MDM Narrative Medical decision making narrative: This is consistent with an ocular migraine. The patient saw an ice cream vault worker today and specifically was sent here to evaluate for the possibility of a TIA. I advised her I am happy to obtain CT and CT angiography to evaluate for the possibility of signs of acute ischemia. Her neurologic symptoms are resolved and lasted only 3 to 5 minutes, so it is not necessary to call stroke alert in order to get these tests quickly/efficiently. In the meantime, her blood pressure is 134 and there are no contraindications to giving her Imitrex to see if that helps the residual headache. Metabolic workup is normal including troponin and blood sugar. EKG is normal showing a normal sinus rhythm and no changes compared with her prior. Obtain plain CT which has no hemorrhage on my interpretation and CT angiography which in my interpretation shows no LVO. Radiology in agreement of both of these. After getting Imitrex here, the patient states she is feeling much better and her headache is almost completely gone. She states she has an appointment with her PCP later this week and with neurology next week for these issues; she states it will be the first time she has seen doctors outside of the emergency department for these problems which I encouraged her to do. Consistent with ocular migraine stable for discharge I do not think she needs to be admitted for an emergent MRI at this time. Lab Data Attestation: I reviewed the patient's lab results. Labs: Laboratory Results - last 24 hr 04/30/24 04/30/24 15:37 15:57 WBC 7.2 RBC 4.20 Hgb 13.5 Hct 41.3 MCV 98.3 MCH 32.1 H MCHC 32.7 RDW Std Deviation 45.1 H RDW Coeff of Srinath 12.6 Plt Count 329 MPV 10.1 Immature Gran % (Auto) 0.100 Neut % (Auto) 65.2 Lymph % (Auto) 26.3 Wright % (Auto) 7.8 Eos % (Auto) 0.3 Baso % (Auto) 0.3 Absolute Neuts (auto) 4.7 Absolute Lymphs (auto) 1.89 Nucleated RBC % 0 Sodium 141 Potassium 3.6 Chloride 108 H Carbon Dioxide 27.0 Anion Gap 6 BUN 12 Creatinine 0.97 Estim Creat Clear Calc 47.65 Est GFR (MDRD) Af Amer 72 Est GFR (MDRD) Non-Af 59 L BUN/Creatinine Ratio 12.4 Glucose 98 Calcium 9.6 Troponin I High Sens 4 POC Glucose 74 Radiography Diagnostic Testing: Clinical Impression(s) from Imaging Studies Head/Neck CTA 04/30/24 15:22 IMPRESSION: Normal CTA Head and neck with contrast. Electronically Signed: Sergey Castanon MD at 16:59 EST Reading Location ID and State: [address] [place] [address] Tel , Service support , Rhythm Strip Rhythm Strip: Sinus Rhythm Rate: 65 Ectopy: None EKG Initial EKG: Attestation: I personally reviewed and interpreted this EKG as follows: Interpretation: Sinus Rhythm, No Acute Injury Pattern and LAFB Prior EKG tracings: available for review Prior: Unchanged Stroke Documentation Questions Stroke Team Activated: No (neurologic symptoms resolved ) Was Patient considered for Endovascular Intervention?: No-CTA negative, determined not to be an endovascular candidate IV Thrombolytic Administered: No (sx resolved) Discharge Plan Triage Chief Complaint: Neuro S/Sx ED Provider: Sammy Roger Dx/Rx/DC Orders Clinical Impression: Ocular migraine Instructions: ED, Migraine (Classical) Prescriptions: No Action aspirin [Adult Aspirin Regimen] 81 mg tablet,delayed release (DR/EC) 81 mg PO DAILY acetaminophen 500 mg capsule 500 mg PO .COMPLEX Rx Instructions: 500 mg orally bid; Alive Calcium-Vitamin D3 260 mg calcium- 25 mcg-50 mg tablet,chewable 2 tab PO DAILY Ultra CoQ10 75 mg capsule 75 mg PO DAILY L.acidoph,paracasei,B.animalis 1 EACH capsule 1 ea PO DAILY calcium-vitamin D3-vitamin K 650 mg-12.5 mcg-40 mcg tablet,chewable 2 tab PO DAILY atorvastatin 40 mg tablet 40 mg PO QHS Qty: 90 3RF Primary Care Provider: Lorelei Kelly Referrals: Lorelei Kelly MD [Primary Care Provider] - Keep Brittney appointment Papa Anderson MD [Non-Staff -Ordering Privileges] - Keep Brittney appointment Print Language: Nigerian Disposition Disposition: Home, Self Care
[2024-04-30 15:59] LABS: Absolute Lymphocyte Count 1.89 X10^3/uL (0.83-4.51); Absolute Neutrophil Count 4.7 X10^3/uL (2.0-7.7); Basophil# 0.02 X10^3/uL; Basophil% 0.3 % (0-1); Eosinophil# 0.02 X10^3/uL; Eosinophils% 0.3 % (0-5); Hematocrit 41.3 % (37-47); Hemoglobin 13.5 g/dL (12.0-15.0); Lymphocyte # 1.89 X10^3/ul (0.83-4.51); Lymphocyte % 26.3 % (19-41); Mean Corp Hgb Conc 32.7 g/dL (32-36); Mean Corpuscular Hgb 32.1 pg (27.0-32.0); Mean Corpuscular Volume 98.3 fL (81-99); Mean Platelet Vol. 10.1 fl (6.2-12.0); Monocyte# 0.56 X10^3/uL; Monocyte% 7.8 % (0-10); NRBC Flagged by Analyzer 0 % (0-5); Neutrophil # 4.68 X10^3/uL (2.7-7.7); Neutrophil % 65.2 % (47-70); Platelet Count 329 K/mm3 (150-450); RBC Distribution Width CV 12.6 % (11.6-14.6); RBC Distribution Width SD 45.1 fl (35.1-43.9); White Blood Count 7.2 K/mm3 (4.4-11.0)
[2024-04-30 16:17] LABS: Anion Gap 6 (5-15); BUN 12 mg/dL (7-18); BUN/Creat Ratio 12.4 RATIO (10-20); Calcium,Total 9.6 mg/dL (8.5-10.1); Chloride 108 mmol/L (98-107); Creatinine, Serum 0.97 mg/dL (0.55-1.02); EST Glomerular Filtration Rate 59 mL/min (>60); Est Glom Filt Rate - Afr Amer 72 mL/min (>60); Estimated Creatinine Clearance 47.65 ml/min; Glucose 98 mg/dL (74-106); Potassium 3.6 mmol/L (3.5-5.1); Sodium Level 141 mmol/L (136-145); Troponin-I HS 4 pg/mL (3.0-54.0)
[2024-04-30 16:18] LABS: Bedside Glucose 74 mg/dL (74-106)
[2024-04-30] MEDS: SUMAtriptan 6 MG/0.5 ML Vial SC (16:28)
== END 2024-04-30 19:12 | disposition home or self-care (01) ==
PROVIDERS: Emergency Provider Emergency Medicine; PCP Internal Medicine; Referring Provider Emergency Medicine; Visit Provider Emergency Medicine
DX: G43.809 Other migraine, not intractable, without status migrainosus (principal); I10 Essential (primary) hypertension; E78.00 Pure hypercholesterolemia, unspecified; R29.818 Other symptoms and signs involving the nervous system; M54.2 Cervicalgia; G89.29 Other chronic pain; Z79.82 Long term (current) use of aspirin; Z79.899 Other long term (current) drug therapy; Z86.73 Personal history of transient ischemic attack (TIA), and cerebral infarction without residual deficits
CPT/HCPCS: 70496; 70498; 80048; 82962; 84484; 85025; 93005; 96372; 99284; Q9967; A4216; J3030

== ENCOUNTER → 2024-05-11 | Outpatient (CLI) | payer MEDICARE, OTHER, SELFPAY ==
[2024-05-11 11:26] LABS: Vitamin B12 776 pg/mL (211-911)
[2024-05-11 11:53] LABS: AST(SGOT) 23 U/L (15-37); Alanine Aminotransfer ALT/SGPT 29 U/L (13-56); Albumin, Serum 4.2 g/dL (3.2-5.0); Alkaline Phosphatase 49 U/L (45-117); Bilirubin, Direct 0.17 mg/dL (0.00-0.30); Cholesterol 127 mg/dL (200); Globulin 3.6 g/dL (2.2-4.2); High Density Lipoprotein 56 mg/dL; Protein, Total 7.8 g/dL (6.4-8.2); T4 Free Direct 1.11 ng/dL (0.76-1.46); Triglycerides 151 mg/dL; Very Low Density Lipoprotein 30 mg/dL (5-40)
[2024-05-16 19:07] LABS: Vitamin B1, Thiamine 128.3 nmol/L (66.5-200.0)
== END | disposition home or self-care (01) ==
LOC: MTLAB 08:18
PROVIDERS: PCP Internal Medicine; Referring Provider Psychiatry & Neurology Neurology; Visit Provider Psychiatry & Neurology Neurology
DX: E78.5 Hyperlipidemia, unspecified (principal); F03.90 Unspecified dementia, unspecified severity, without behavioral disturbance, psychotic disturbance, mood disturbance, and anxiety
CPT/HCPCS: 36415; 80061; 80076; 82607; 82746; 84425; 84439; 84443

== ENCOUNTER → 2024-05-28 | Outpatient (CLI) | payer MEDICARE, OTHER, SELFPAY ==
--- NOTE | 2024-05-28 16:12 | MRI_ITS ---
PROCEDURE: BRAIN W/WO CONTRAST REASON FOR EXAM: Forgetfulness. TECHNIQUE: Multiplanar, multisequence MRI of the brain with and without intravenous gadolinium-based contrast. COMPARISON: None. FINDINGS: Mild to moderate global parenchymal atrophy. Moderate microvascular ischemia. No evidence of acute hemorrhage or infarction. No evidence of abnormal intracranial enhancement. No extra-axial blood or fluid collections. The paranasal sinuses are clear. The globes are intact. MRI/Brain W/WO Contrast IMPRESSION: No acute intracranial abnormality. Reading Location: [id number]
== END | disposition home or self-care (01) ==
LOC: MRI 16:07
PROVIDERS: PCP Internal Medicine; Referring Provider Psychiatry & Neurology Neurology; Visit Provider Psychiatry & Neurology Neurology
DX: F03.90 Unspecified dementia, unspecified severity, without behavioral disturbance, psychotic disturbance, mood disturbance, and anxiety (principal); G43.109 Migraine with aura, not intractable, without status migrainosus
CPT/HCPCS: 70553; A9575

== ENCOUNTER → 2024-05-31 | Outpatient (CLI) | payer MEDICARE, OTHER, SELFPAY ==
[2024-05-31 14:56] LABS: Free T3 2.5 pg/mL (2.18-3.98)
== END | disposition home or self-care (01) ==
LOC: LAB 13:27
PROVIDERS: PCP Internal Medicine; Referring Provider Internal Medicine; Visit Provider Internal Medicine
DX: R79.89 Other specified abnormal findings of blood chemistry (principal)
CPT/HCPCS: 36415; 84481

== ENCOUNTER 2024-11-27 10:13 | Emergency (ER) | payer MEDICARE, OTHER, SELFPAY ==
[2024-11-27 10:14] VITALS: BP 148/87; PULSE 65; RESP 16; TEMP 36.1; O2SAT 99; BMI 24.8
--- NOTE | 2024-11-27 10:34 | EKG12_ITS ---
Test Reason : GENERAL Blood Pressure : */* mmHG Vent. Rate : 55 BPM Atrial Rate : 55 BPM P-R Int : 152 ms QRS Dur : 94 ms QT Int : 432 ms P-R-T Axes : 47 -53 41 degrees QTcB Int : 413 ms Sinus bradycardia Left anterior fascicular block Abnormal ECG Confirmed by ABHAY FRANKS, JIMMIE ([id number]), telegraph editor FLORA MENDEZ ([id number]) on 11/28/2024 8:33:07 AM Referred By: Confirmed By: JIMMIE BLANK MD
--- NOTE | 2024-11-27 10:35 | EX.ED.DYSGE1 ---
HPI History of Present Illness Chief Complaint: Bite Detail of Chief Complaint: Right arm pain and lightheadedness Informant: patient Narrative Narrative: Patient presents to the emergency department with complaint of pain in her right arm that started 3 days ago. Patient states that she had some sort of a bug bite on her right index finger 3 days ago. Subsequently she developed some pain into her middle finger and into the palm of her hand that is now extending into her wrist and towards the elbow. She was seen at urgent care and referred to the emergency department because of complaint of lightheadedness today. She denies vertiginous symptoms. She has history of hypertension as well as history of prior TIA and recent diagnosis of dementia. She denies urinary symptoms. She denies fever. She denies blood in her stool or black tarry stool. [facility] Medical History (Updated 11/27/24 @ 13:[address] Bradly Tolentino, ) Atypical chest pain Lightheadedness Insect bite Diarrhea Balance problem Tinea corporis Cataracts, bilateral Allergic dermatitis Fatigue B12 deficiency Tension headache, chronic Essential hypertension Sinus arrhythmia Sinus pause Sinus tachycardia Sinus bradycardia Confusion Osteoarthritis GERD (gastroesophageal reflux disease) Hypoglycemia High triglycerides High cholesterol IBS (irritable bowel syndrome) Radiculopathy HTN (hypertension) TIA (transient ischemic attack) Ophthalmic migraine Screening for intestinal cancer Radiculopathy of lumbar region Arthritis Home Medications ?Medication ?Instructions ?Recorded ?Last Taken ?Type L.acidoph,paracasei,B.animalis 10 1 ea PO DAILY 05/09/19 Unknown History billion cell capsule aspirin 81 mg tablet,delayed 81 mg PO DAILY 03/17/21 Unknown History release (Adult Aspirin Regimen) coenzyme Q10 75 mg capsule (Ultra 75 mg PO DAILY 08/24/23 Unknown History CoQ10) acetaminophen 500 mg capsule 500 mg PO .COMPLEX 02/06/24 Unknown History calcium 260 mg (phos,tribasic)-D3 1 tab PO DAILY 08/06/24 Unknown History 25 mcg-herbal 50 mg chewable tablet (Alive Calcium-Vitamin D3) donepezil 5 mg tablet 5 mg PO QHS #30 tabs 08/09/24 Unknown Rx atorvastatin 40 mg tablet 40 mg PO QHS #90 tabs 10/01/24 Unknown Rx prednisone 20 mg tablet 20 mg PO BID #10 tabs 11/27/24 Unknown Rx Allergy/AdvReac Type Severity Reaction Status Date / Time celecoxib (From Celebrex) Allergy Rash Verified 11/27/24 10:16 etodolac (From Lodine) Allergy Rash Verified 11/27/24 10:16 valdecoxib (From Bextra) Allergy Rash Verified 11/27/24 10:16 naproxen AdvReac Other Verified 11/27/24 10:16 Family History Father Diabetes Cancer brain CVA (cerebral vascular accident) Mother Diabetes Depression Sister Cancer uterine Son Diabetes type 1 Surgical History History of cataract surgery Status post placement of implantable loop recorder (~05/12/21) History of colonoscopy History of local excision of skin lesion History of vaginal surgery History of tonsillectomy Social History household members: none Smoking Status: Never smoker alcohol intake: never substance use type: does not use caffeine: Yes what type of physical activity do you participate in: walking seatbelt use: always do you feel safe at home: Yes additional social history: Patient is retired ROS ROS ED ROS Narrative Bug bite to right index finger Review of Systems ROS Unobtainable: other Constitutional Constitutional ED: Reports lethargy; Denies chills, fever(s), sweats or weight loss Eyes Eyes: Denies blurry vision, change in vision or diplopia ENT ENT ED: Denies rhinorrhea or sore throat Cardiovascular Cardiovascular: Denies chest pain, orthopnea or racing heartbeat Respiratory/Chest Respiratory/Chest: Denies cough, dyspnea, dyspnea on exertion, orthopnea or sputum Gastrointestinal Gastrointestinal: Denies abdominal pain, diarrhea, nausea or vomiting Genitourinary Genitourinary ED: Denies dysuria, hematuria or urinary frequency Musculoskeletal Musculoskeletal: Reports other Details: Right arm pain ; Denies arthralgias, back pain, myalgias or neck pain Integumentary Denies abscess, Abrasions or rash Neurologic Neurologic: Reports other Details: Lightheadedness ; Denies headache(s) or weakness Psychiatric Psychiatric: Denies anxiety, depression or suicidal thoughts Endocrine Endocrinology: Denies polydipsia, polyphagia or polyuria Hematologic/Lymphatic Hematologic/Lymphatic: Denies easy bleeding, easy bruising or lymphadenopathy Allergic/Immunologic Allergic/Immunologic ED: Denies mouth swelling, tongue swelling or urticaria EXAM Physical Exam Const Vital Signs: 11/27/24 10:14 11/27/24 10:47 11/27/24 10:48 Temperature 96.9 F L 96.9 F L Temperature Source Temporal Temporal Pulse Rate 65 62 Pulse Rate [Lying] Pulse Rate [Sitting (for 1 minute prior to obtaining)] Pulse Rate [Standing (for 1 minute prior to obtaining)] Respiratory Rate 16 19 H Respiratory Effort Normal Respiratory Pattern Normal Blood Pressure 148/87 H 186/70 H Blood Pressure [Lying] Blood Pressure [Sitting (for 1 minute prior to obtaining)] Blood Pressure [Standing (for 1 minute prior to obtaining)] Blood Pressure Mean 107 108 Blood Pressure Mean [Lying] Blood Pressure Mean [Sitting (for 1 minute prior to obtaining)] Blood Pressure Mean [Standing (for 1 minute prior to obtaining)] Pulse Ox 99 98 Oxygen Delivery Method Room Air 11/27/24 11:26 11/27/24 11:27 11/27/24 13:00 Temperature Temperature Source Pulse Rate 78 Pulse Rate [Lying] 63 Pulse Rate [Sitting (for 1 minute prior to obtaining)] 63 Pulse Rate [Standing (for 1 minute prior to obtaining)] 64 Respiratory Rate Respiratory Effort Respiratory Pattern Blood Pressure 134/47 H 158/81 H Blood Pressure [Lying] 157/77 H Blood Pressure [Sitting (for 1 minute prior to obtaining)] 163/84 H Blood Pressure [Standing (for 1 minute prior to obtaining)] 159/83 H Blood Pressure Mean 76 106 Blood Pressure Mean [Lying] 103 Blood Pressure Mean [Sitting (for 1 minute prior to obtaining)] 110 Blood Pressure Mean [Standing (for 1 minute prior to obtaining)] 108 Pulse Ox Oxygen Delivery Method Positive well nourished and well developed General Appearance ED: well developed and NAD HEENT Reports TM's clear and moist mucous membranes normocephalic and atraumatic; Negative for trauma or tenderness Tympanic Membrane ED: Yes TM's clear Eyes PERRL and EOMs intact bilaterally General Eye ED: Negative for pale conjunctiva or scleral icterus Neck no lymphadenopathy, supple and no JVD General: Negative for tenderness Chest Wall inspection of chest normal and palpation of chest normal Chest: Negative for tenderness Resp normal respiratory effort and clear to auscultation bilaterally Effort and Inspection: Negative for respiratory distress or pain with movement Auscultation: Negative for rhonchi, wheezes or diminished lung sounds Cardio regular rate, regular rhythm, S1 normal heart sound, S2 normal heart sound and no murmurs Peripheral Pulses: pulses 2+ throughout GI normal to inspection, nondistended, normoactive bowel sounds, soft to palpation, non-tender, non-distended and no masses Back/Spine no CVA tenderness and no thoracic nor lumbar tenderness Extremity Extremity Narrative: Right index finger-there is no evidence of erythema or rash. There is no significant soft tissue swelling. Evaluation of the hand and wrist shows arthritic changes at the PIP joints. There is no significant swelling or edema of the hand. There is no swelling of the wrist or the forearm. She is neurovascularly intact with normal range of motion of all digits. General Extremety ED: Negative for edema General Extremity: Negative for edema Neuro oriented x3, CN's II-XII intact bilaterally, no sensory deficits noted and gait normal Sensorium / Orientation: awake, alert, oriented to person, oriented to place and oriented to time Motor Exam: strength 5/5 throughout and strength abnormal Psych mental status grossly normal Skin no rashes or lesions noted and no wounds MDM MDM MDM Narrative Medical decision making narrative: Patient presents to the emergency department with discomfort in her right hand now tracking towards her elbow. Patient with history of arthritis and states that she thinks she may have a pinched nerve in her neck also. Seen at urgent care and referred to the ER because she was complaining of feeling lightheaded today. Patient denies any chest pain or shortness of breath and clinically looks well. Patient denies vertiginous symptoms. She denies recent illness. She has not been having chest pain. EKG obtained arrival showed a sinus rhythm with rate of 55 bpm with left anterior fascicular block otherwise no acute ST segment changes. CBC with differential shows a white count of 6.3 with hemoglobin of 13.7 and platelet count of 283. Chemistries unremarkable. Initial troponin minimally elevated at 16. 2-hour delta troponin normal at 7. Urinalysis was normal without signs of infection. This point etiology of the pain in her hand unclear although suspect may be related to arthritis versus neuropathic pain. There is no signs of infection on exam. And there is no edema. Her lightheaded sensation etiology is unclear. Orthostatic vital signs were negative. At this point I will write her prescription for prednisone for 5 days. Advised to follow-up with primary care physician within the next 3 to 5 days. Lab Data Attestation: I reviewed the patient's lab results. Labs: Laboratory Results - last 24 hr 11/27/24 11/27/24 11/27/24 10:45 11:08 12:45 WBC 6.3 RBC 4.22 Hgb 13.7 Hct 42.2 MCV 100.0 H MCH 32.5 H MCHC 32.5 RDW Std Deviation 47.2 H RDW Coeff of Srinath 12.8 Plt Count 283 MPV 10.1 Immature Gran % (Auto) 0.300 Neut % (Auto) 68.5 Lymph % (Auto) 20.4 [place] % (Auto) 9.1 Eos % (Auto) 1.1 Baso % (Auto) 0.6 Absolute Neuts (auto) 4.3 Absolute Lymphs (auto) 1.28 Nucleated RBC % 0 Sodium 141 Potassium 4.1 Chloride 103 Carbon Dioxide 26.1 Anion Gap 11 BUN 13 Creatinine 0.81 Estim Creat Clear Calc 51.51 Est GFR (MDRD) Non-Af 74 BUN/Creatinine Ratio 16.4 Glucose 91 Calcium 9.9 Troponin T High Sens 16 H Troponin T Hi Sens 2 Hr 7 Urine Color Yellow Urine Clarity Clear Urine pH 7.0 Ur Specific [place] 1.010 Urine Protein 15 H Urine Glucose (UA) Normal Urine Ketones Negative Urine Occult Blood 25 H Urine Nitrite Negative Urine Bilirubin Negative Urine Urobilinogen Normal Ur Leukocyte Esterase Negative Urine RBC 0 SEEN Urine WBC 0 SEEN Ur Squamous Epith Cells 0 SEEN Urine Bacteria 0 SEEN Urine Mucus 0 SEEN EKG Initial EKG: Attestation: I personally reviewed and interpreted this EKG as follows: Comments: Sinus rhythm with ventricular rate of 55 bpm with no acute ST segment changes Discharge Plan Triage Chief Complaint: Bite Other Complaint: Other, Pain/Inj ED Provider: Bradly Tolentino Dx/Rx/DC Orders Clinical Impression: Hand pain, right, Dizziness Instructions: ED Dizziness, Uncertain Cause, ED Pain, Acute, Uncertain Cause Prescriptions: New prednisone 20 mg tablet 20 mg PO BID Qty: 10 0RF No Action aspirin [Adult Aspirin Regimen] 81 mg tablet,delayed release (DR/EC) 81 mg PO DAILY acetaminophen 500 mg capsule 500 mg PO .COMPLEX Rx Instructions: 500 mg orally bid; Ultra CoQ10 75 mg capsule 75 mg PO DAILY Alive Calcium-Vitamin D3 260 mg calcium- 25 mcg-50 mg tablet,chewable 1 tab PO DAILY donepezil 5 mg tablet 5 mg PO QHS Qty: 30 4RF L.acidoph,paracasei,B.animalis 1 EACH capsule 1 ea PO DAILY atorvastatin 40 mg tablet 40 mg PO QHS Qty: 90 3RF Primary Care Provider: Lorelei Kelly Referrals: Lorelei Kelly MD [Primary Care Provider] - 3-5 Days Print Language: Swedish Disposition Disposition: Home, Self Care
[2024-11-27 10:47] VITALS: BP 186/70; PULSE 62; RESP 19; TEMP 36.1; O2SAT 98
[2024-11-27 10:53] LABS: Hematocrit 42.2 % (37-47); Hemoglobin 13.7 g/dL (12.0-15.0); Immature Granulocytes Count 0.020 X10^3/uL (0.0-0.0); Mean Corp Hgb Conc 32.5 g/dL (32-36); Mean Corpuscular Volume 100.0 fL (81-99); Mean Platelet Vol. 10.1 fl (6.2-12.0); NRBC Flagged by Analyzer 0 % (0-5); Platelet Count 283 K/mm3 (150-450); RBC Distribution Width CV 12.8 % (11.6-14.6); RBC Distribution Width SD 47.2 fl (35.1-43.9); Red Blood Count 4.22 M/mm3 (4.2-5.4); White Blood Count 6.3 K/mm3 (4.4-11.0)
[2024-11-27 11:13] LABS: Mucous, Urine 0 SEEN /hpf (<or=2+); Red Blood Cells-Urine 0 SEEN /hpf (0-5); Squamous Epithelial Cells - UA 0 SEEN /hpf (5-10)
[2024-11-27 11:14] LABS: Color, Urine Yellow (Yellow); Glucose, Dipstick Normal (Normal); Ketone-Dipstick Negative (Negative); Leukocyte Esterase-Dipstick Negative /ul (Negative); Nitrite-Dipstick Negative (Negative); Occult Blood-Urine 25 /ul (Negative); Protein-Dipstick 15 mg/dl (Negative); Specific Gravity, Urine 1.010 (1.002-1.030); Urine Bilirubin Dipstick Negative (Negative)
[2024-11-27 11:22] LABS: Anion Gap 11 (5-15); BUN 13 mg/dL (4-19); BUN/Creat Ratio 16.4 RATIO (10-20); Calcium,Total 9.9 mg/dL (7.6-11.0); Carbon Dioxide 26.1 mmol/L (21.0-32.0); Chloride 103 mmol/L (98-108); Estimated Creatinine Clearance 51.51 ml/min (50-250); Glucose 91 mg/dL (70-99); Potassium 4.1 mmol/L (3.3-5.1); Troponin T High Sensitivity 16 ng/L (<=14)
[2024-11-27 11:26] VITALS: BP 134/47
[2024-11-27 11:27] VITALS: BP 157/77; BP 159/83; BP 163/84; PULSE 63; PULSE 64
[2024-11-27 13:00] VITALS: BP 158/81; PULSE 78
[2024-11-27 13:47] LABS: Troponin T High Sens 2 HR 7 ng/L (<=14)
[2024-11-27 14:10] VITALS: BP 148/63; PULSE 89; RESP 18; TEMP 37.2; O2SAT 99
== END 2024-11-27 14:11 | disposition home or self-care (01) ==
PROVIDERS: Emergency Provider Emergency Medicine; PCP Internal Medicine; Visit Provider Emergency Medicine
DX: M79.641 Pain in right hand (principal); R42 Dizziness and giddiness; Z86.73 Personal history of transient ischemic attack (TIA), and cerebral infarction without residual deficits
CPT/HCPCS: 80048; 81001; 84484; 85025; 93005; 99285; A4216

== ENCOUNTER → 2025-04-08 | Outpatient (CLI) | payer MEDICARE, OTHER, SELFPAY | END | disposition home or self-care (01) | PROVIDERS: PCP Internal Medicine; Visit Provider Psychiatry & Neurology Neurology | DX: G30.9 Alzheimer's disease, unspecified (principal); F02.80 Dementia in other diseases classified elsewhere, unspecified severity, without behavioral disturbance, psychotic disturbance, mood disturbance, and anxiety | CPT/HCPCS: 36415; 81401 ==